=== PATIENT | male | born 1945 | race Caucasian/White ===

== ENCOUNTER → 2021-06-10 08:39 | Outpatient (BNVA) | payer OTHER, SELFPAY | PROVIDERS: PCP Internal Medicine; Visit Provider Surgery | DX: Z12.11 Encounter for screening for malignant neoplasm of colon (principal) | CPT/HCPCS: 99202 ==

== ENCOUNTER 2022-03-23 00:40 | Inpatient (IN) | payer OTHER, SELFPAY ==
[2022-03-23] VITALS (36 sets, daily range): BP systolic 83–179; BP diastolic 32–80; PULSE 56–92; RESP 18–87; TEMP 35.9–36.6; O2SAT 91–100; BMI 33.6
--- NOTE | 2022-03-23 | ECG_ITS ---
Test Reason : chest pain Blood Pressure : / mmHG Vent. Rate : 060 BPM Atrial Rate : 060 BPM P-R Int : 342 ms QRS Dur : 120 ms QT Int : 450 ms P-R-T Axes : 028 -27 049 degrees QTc Int : 450 ms Sinus rhythm with 1st degree A-V block Incomplete left bundle branch block Borderline ECG When compared with ECG of 23-MAR-2022 00:54, Incomplete left bundle branch block is now Present Referred By: Lay Hall Electronically Signed By:HUYEN ALMONTE
--- NOTE | ~2022-03-23 | XR_ITS ---
EXAMINATION: XR chest 1V, XR KUB CLINICAL INFORMATION: Reason for Exam verify placement of TLC COMPARISON: Previous day TECHNIQUE: Portable AP view of the chest and supine views of the abdomen FINDINGS: Right internal jugular central venous catheter terminates at the superior cavoatrial junction. No pneumothorax. Bilateral patchy airspace opacities unchanged from prior. Small bilateral pleural effusions with accompanying atelectasis. Stable cardiomediastinal silhouette. Diffuse gaseous distention of the gastrointestinal tract including the rectum compatible with ileus. No pneumatosis or portal venous gas. XR/XR KUB IMPRESSION: * Right IJ central venous catheter terminates at the superior cavoatrial junction. * Similar-appearing bilateral patchy airspace opacities and small bilateral pleural effusions. * Generalized ileus.
--- NOTE | ~2022-03-23 | US_ITS ---
EXAMINATION: US ABDOMEN COMPLETE, PORTABLE CLINICAL INFORMATION: Rule out hepatocellular carcinoma. Cirrhosis.. COMPARISON: CT abdomen and pelvis 01/18/2017 TECHNIQUE: Real-time imaging of the abdominal viscera. FINDINGS: PANCREAS: The entire pancreas is obscured by overlying gas. ABDOMINAL AORTA: The entire abdominal aorta is not visualized. INFERIOR VENA CAVA: IVC is not visualized. On Doppler exam the IVC is patent. LIVER: The liver is heterogeneous with lobulated contour. There is a hyperechoic lesion in the right hepatic lobe measuring 7. 3.9 x 7.4 cm and a slightly smaller hypoechoic lesion in the right hepatic lobe measuring 5.9 x 6.0 x 7.1 cm. No additional lesions seen. There is no intrahepatic ductal dilatation. GALLBLADDER: There is impacted stones within the gallbladder with wall thickness of 0.7 cm. No pericholecystic fluid collection seen COMMON BILE DUCT: Normal in caliber measuring 0.4 cm in diameter. RIGHT KIDNEY: Normal. No hydronephrosis. No renal calculi or focal parenchymal lesions. The kidney measures 11.0 cm in maximum dimension. LEFT KIDNEY: Normal. No hydronephrosis. No renal calculi or focal parenchymal lesions. The kidney measures 11.0 cm in maximum dimension. SPLEEN: There is small splenule versus lesion measuring 2.4 x 2.2 x 2.2 cm. The spleen measures 11.317 cm in maximum dimension. FREE FLUID: None. US/US duplex arterial venous comp IMPRESSION: Limited portable exam due to a lot of gas. Gallstones with mild wall thickening. Cirrhosis with 2 lesions hypoechoic and hyperechoic in the right hepatic lobe, suspicious for malignancy. Cholelithiasis without wall thickening Splenule in the hilum measuring 2.4 x 2.2 x 2.2 cm There is an impacted stones in the gallbladder with wall thickness is 0.7 cm. No tenderness in right upper quadrant by ultrasound probe.
--- NOTE | ~2022-03-23 | XR_ITS ---
EXAMINATION: XR CHEST CLINICAL INFORMATION: Shortness of breath COMPARISON: 03/23/2022 TECHNIQUE: Frontal view of the chest was obtained. FINDINGS: Lung volumes are symmetric. There are significantly increased multifocal airspace opacity throughout both lungs. Small left pleural effusion. No pneumothorax. The cardiomediastinal contour is unremarkable. No acute osseous findings are seen. Sternal wires are present. XR/XR chest 1V IMPRESSION: Significantly worsened bilateral airspace opacities suspicious for edema versus multifocal pneumonia in the proper clinical setting. Small left pleural effusion.
--- NOTE | ~2022-03-23 | XR_ITS ---
EXAMINATION: XR chest 1V, XR KUB CLINICAL INFORMATION: Reason for Exam verify placement of TLC COMPARISON: Previous day TECHNIQUE: Portable AP view of the chest and supine views of the abdomen FINDINGS: Right internal jugular central venous catheter terminates at the superior cavoatrial junction. No pneumothorax. Bilateral patchy airspace opacities unchanged from prior. Small bilateral pleural effusions with accompanying atelectasis. Stable cardiomediastinal silhouette. Diffuse gaseous distention of the gastrointestinal tract including the rectum compatible with ileus. No pneumatosis or portal venous gas. XR/XR chest 1V IMPRESSION: * Right IJ central venous catheter terminates at the superior cavoatrial junction. * Similar-appearing bilateral patchy airspace opacities and small bilateral pleural effusions. * Generalized ileus.
--- NOTE | ~2022-03-23 | CT_ITS ---
EXAMINATION: LIVER CT 3 PHASE CLINICAL INFORMATION: Cirrhosis. Rule out liver lesion. COMPARISON: Previous abdominal ultrasound 03/23/[address] of the abdomen and pelvis December 2016 TECHNIQUE: Axial images through the abdomen with and without IV contrast. Arterial and portal phase imaging was performed. Patient received 85 mL Omnipaque 350 intravenous contrast. Sagittal and coronal reconstructions on the technologist workstation were performed. Patient dose 146 0 mg/cm. This CT examination was performed using dose optimization techniques as appropriate, variously including the following: *Automated exposure control *Adjustment of mA and/or kV according to patient size (this includes techniques or standardized protocols for targeted exams where dose is matched to indication/reason for exam; i.e. extremities or head) *Use of iterative reconstruction technique FINDINGS: There is bilateral pleural calcification. There is focal right lower lobe bronchiectasis and adjacent pleural thickening. These findings are similar to 2017 exam. There is a new small left pleural effusion. There is a new abnormal peripheral density in the left lower lobe with air bronchograms. Differential would include pneumonia, mass and round atelectasis related to the left pleural disease. The heart is enlarged. The liver is cirrhotic. There is a heterogeneous 6.7 x 6.3 cm lesion in the central liver involving the anterior segment of the right lobe and possibly some of the medial segment of the left lobe of the liver. This is slightly low-attenuation in attenuation precontrast. This demonstrates mild early arterial phase enhancement and washout. This has low attenuation cystic or necrotic areas and is associated with local intrahepatic biliary duct dilatation in the anterior segment of the right lobe of the liver. No other focal liver lesion is seen. There are gallstones in the gallbladder. Extrahepatic bile ducts do not appear dilated. The spleen is normal. The pancreas is normal. The adrenal glands are normal. There is a small low-attenuation lesions in both kidneys probably representing small cysts. There is a small amount of ascites. There is thrombus seen in the main and right portal veins. There are mesenteric varices. The hepatic veins are patent. There is evidence of severe atherosclerotic disease. There is calcification at the origin of the celiac axis and SMA. There is scoliosis and degenerative change of the spine. CT/CT liver 3 phase IMPRESSION: Cirrhotic-appearing liver. 6.7 x 6.3 cm mass in the anterior segment of the right lobe of the liver and possibly involving some of the medial segment of the left lobe of the liver. Thrombus in the main and right portal veins. Small amount of ascites. Gallstones. Small renal cysts. Severe atherosclerotic disease. Bilateral pleural calcification probably representing changes from asbestos exposure. Focal right lower lobe bronchiectasis and adjacent pleural thickening stable from 2017 exam. New small left pleural effusion and peripheral masslike consolidation in the adjacent left lower lobe. Differential would include pneumonia, atelectasis related to effusion and neoplasm.
--- NOTE | ~2022-03-23 | CT_ITS ---
EXAMINATION: CT HEAD WITHOUT CONTRAST CLINICAL INFORMATION: Fiorellad speech COMPARISON: 10/08/2016 TECHNIQUE: Contiguous axial imaging was performed from the skull base to vertex without intravenous administration of contrast. This CT examination was performed using dose optimization techniques as appropriate, variously including the following: *Automated exposure control *Adjustment of mA and/or kV according to patient size (this includes techniques or standardized protocols for targeted exams where dose is matched to indication/reason for exam; i.e. extremities or head) *Use of iterative reconstruction technique DLP: 922 mGy-cm FINDINGS: There is no evidence of acute intracranial hemorrhage or territorial infarction. No abnormal mass-effect or midline shift is seen. Yadav to white matter differentiation is well preserved. No extra-axial fluid collections are identified. The ventricles are normal in size. There is mild periventricular white matter hypoattenuation consistent with chronic small vessel ischemic disease. Mild volume loss is noted. The osseous structures and soft tissues are normal. Slight opacification of the left ethmoid air cells. The mastoid air cells are well-aerated. CT/CT head/brain wo con IMPRESSION: No acute intracranial pathology.
--- NOTE | ~2022-03-23 | XR_ITS ---
EXAMINATION: XR CHEST CLINICAL INFORMATION: Status-post central line placement. COMPARISON: CT chest dated 11/08/2018; chest radiograph dated 01/18/2017. TECHNIQUE: Frontal view of the chest was obtained. FINDINGS: The heart, great vessels, pulmonary vasculature and mediastinum are stable. 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 A left internal jugular central line is seen, with tip positioned in the superior vena cava just above the cavoatrial junction. No congestive heart failure is seen. Lung volumes are somewhat diminished, with crowding of bronchovascular and pulmonary parenchymal markings. A small left pleural effusion is suspected. There is no acute osseous abnormality. There are degenerative changes of the shoulders. XR/XR chest 1V IMPRESSION: 1. A left internal jugular central venous catheter seen with tip positioned in the superior vena cava. 2. Lung volumes are low, crowding of bronchovascular and pulmonary parenchymal markings. There is mild elevation of the right hemidiaphragm. 3. A small left pleural effusion is suspected.
--- NOTE | ~2022-03-23 | US_ITS ---
EXAMINATION: US ABDOMEN LIMITED CLINICAL INFORMATION: Portal vein thrombosis evaluation. COMPARISON: Ultrasound abdomen limited 03/20/[address] of the abdomen 03/25/2022. TECHNIQUE: Real-time imaging of the right upper quadrant abdominal viscera. FINDINGS: This study is very limited since it is done portably in the ICU. The right and left portal veins were not seen. There is a central structure which could be the MPV but not clearly seen as well. Overall, I would say this study is nondiagnostic, and this CT examination from 12/23/2021 was certainly more diagnostic. There is an ill-defined hypoechoic structure in the right lobe liver at 57 x 63 mm which was seen and mentioned on the recent CT. US/US abdomen limited IMPRESSION: Very limited exam. The portal veins were not clearly evaluated.
--- NOTE | ~2022-03-23 | US_ITS ---
EXAMINATION: US ABDOMEN LIMITED CLINICAL INFORMATION: Ascites check. COMPARISON: Liver CT March 25, 2022 and abdominal ultrasound March 23, 2022 TECHNIQUE: Real-time imaging of the abdomen assessing for ascites US/US abdomen limited FINDINGS/IMPRESSION: Only a tiny amount of ascites is noted within the right upper quadrant and left lower quadrant.
--- NOTE | ~2022-03-23 | US_ITS ---
EXAMINATION: US ABDOMEN COMPLETE, PORTABLE CLINICAL INFORMATION: Rule out hepatocellular carcinoma. Cirrhosis.. COMPARISON: CT abdomen and pelvis 01/18/2017 TECHNIQUE: Real-time imaging of the abdominal viscera. FINDINGS: PANCREAS: The entire pancreas is obscured by overlying gas. ABDOMINAL AORTA: The entire abdominal aorta is not visualized. INFERIOR VENA CAVA: IVC is not visualized. On Doppler exam the IVC is patent. LIVER: The liver is heterogeneous with lobulated contour. There is a hyperechoic lesion in the right hepatic lobe measuring 7. 3.9 x 7.4 cm and a slightly smaller hypoechoic lesion in the right hepatic lobe measuring 5.9 x 6.0 x 7.1 cm. No additional lesions seen. There is no intrahepatic ductal dilatation. GALLBLADDER: There is impacted stones within the gallbladder with wall thickness of 0.7 cm. No pericholecystic fluid collection seen COMMON BILE DUCT: Normal in caliber measuring 0.4 cm in diameter. RIGHT KIDNEY: Normal. No hydronephrosis. No renal calculi or focal parenchymal lesions. The kidney measures 11.0 cm in maximum dimension. LEFT KIDNEY: Normal. No hydronephrosis. No renal calculi or focal parenchymal lesions. The kidney measures 11.0 cm in maximum dimension. SPLEEN: There is small splenule versus lesion measuring 2.4 x 2.2 x 2.2 cm. The spleen measures 11.317 cm in maximum dimension. FREE FLUID: None. US/US abdomen complete IMPRESSION: Limited portable exam due to a lot of gas. Gallstones with mild wall thickening. Cirrhosis with 2 lesions hypoechoic and hyperechoic in the right hepatic lobe, suspicious for malignancy. Cholelithiasis without wall thickening Splenule in the hilum measuring 2.4 x 2.2 x 2.2 cm There is an impacted stones in the gallbladder with wall thickness is 0.7 cm. No tenderness in right upper quadrant by ultrasound probe.
--- NOTE | ~2022-03-23 | XR_ITS ---
EXAMINATION: XR CHEST CLINICAL INFORMATION: Shortness of breath COMPARISON: 03/27/2022 TECHNIQUE: Frontal view of the chest was obtained. FINDINGS: Again seen are hypoinflated lungs and multifocal airspace disease diffusely. A small left effusion as well as a tiny right effusion is present. Compared to the prior study, there is probably no significant interval change. Again noted is median sternotomy, mild cardiomegaly and mild degenerative changes both shoulders. XR/XR chest 1V IMPRESSION: Bilateral airspace disease without significant change. Findings remain consistent with either edema or multifocal infection.
--- NOTE | 2022-03-23 00:43 | ED_ITS ---
HPI - GI Bleed General Chief complaint: Abdominal Pain Stated complaint: blood in stool Time Seen by Provider: 03/23/22 00:43 Source: patient and EMS Mode of arrival: EMS Limitations: no limitations History of Present Illness HPI Narrative: 2 days of rectal bleeding. patient has a history of cirrhosis, has a history of esophageal varices. patient with dark brown stools. Patient just had diarrhea that was black. complaint: other (black stool) Onset (ago): day(s) Pain Consistency: intermittent Severity: moderate Relieving factors: none Exacerbating factors: none Context: history of GI bleed and liver disease Associated symptoms: denies other symptoms Related Data Home Medications Medication Instructions Recorded Confirmed amlodipine 5 mg tablet 5 mg PO DAILY 06/10/21 03/23/22 lisinopril 40 mg tablet 40 mg PO DAILY 06/10/21 03/23/22 Allergies Allergy/AdvReac Type Severity Reaction Status Date / Time No Known Allergies Allergy Verified 03/23/22 00:51 [No Known Allergies*] Review of Systems Constitutional: Constitutional: Reports no additional constitutional complaints Eyes: Eyes: Reports no additional eye complaints ENT: Denies dizziness Cardiovascular: Cardiovascular: Reports no additional cardiovascular complaints Respiratory: Respiratory: Reports as per HPI Gastrointestinal: Gastrointestinal: Reports no additional gastrointestinal complaints Musculoskeletal: Musculoskeletal: Reports no additional musculoskeletal complaints Integumentary/Breasts: Skin/Breast: Denies rash Neurologic: Reports system reviewed and no additional complaints, except as documented, Denies dizziness and Denies Sensory deficit (Neuro) Psychiatric: Psychiatric: Denies anxiety PMFSH Past Medical History Medical History Chronic back pain Chronic liver disease Cirrhosis Colon cancer screening Fibromyalgia History of alcohol abuse Social History Social History Advance Directives: Yes Advance Directives Information Provided: No Advance Directives on File: No Physical Exam Vital Signs: Vital Signs: Last Vital Signs Pulse 83 03/23/22 00:49 Resp 24 H 03/23/22 00:49 BP 112/48 L 03/23/22 00:49 Pulse Ox 97 03/23/22 00:49 O2 Del Method 03/23/22 00:49 BMI result Body Mass Index 33.6 Const: Other: unkept, chronically ill Nutritional Appearance: obese Orientation/consciousness: oriented to person and patient oriented x3 Limitations: no limitations HEENT: Head: Yes normal to inspection Ears: external ears normal General nose exam: Normal external nose present Mouth: Normal oral and palatal mucosa present and oropharynx normal Throat: Yes posterior oropharynx normal Eyes: General: appearance normal, both eyes and all related structures Neck: Other: supple Neck: Yes normal visual inspection Chest: Chest palpation & inspection: normal inspection of the chest Resp: Auscultation: clear to auscultation bilaterally Cardio: Other: 3/6 CHARAN Jugular venous distension: no JVD GI: Other: obese Palpation (GI): Soft to palpation, nontender and No hepatosplenomegaly pr esent Auscultation: normal bowel sounds : Other: rectal, black stool, strong heme positive Skin: General skin exam: no rashes or lesions noted Neuro: General: oriented to person and patient oriented x3 Cranial nerves: Yes CN's II-XII intact bilaterally Motor exam (neuro): 5/5 motor strength present throughout Sensory Exam: No Sensory deficit (Neuro) Extrem: General: Yes normal to inspection Psych: Appearance: grossly normal Course Reevaluation(s) Reevaluation #1: patient with likely upper GI bleed based on black stool and the history of the same. At the point with HCT 28.5 and stable vitals I will not transfuse at this time Time: 03:09 [facility] - GI Bleed Lab Data Result diagrams: 03/23/22 01:26 03/23/22 01:26 Labs: Lab Results 03/23/22 03/23/22 03/23/22 Range/Units 01:26 01:26 01:26 WBC 9.6 (4.8-10.8) X10*3/uL RBC 2.62 L (4.60-5.80) X10*6/uL Hgb 9.8 L (14.0-18.0) g/dl Hct 28.5 L (42.0-52.0) % MCV 108.8 H (80.0-98.0) fL MCH 37.4 H (27.0-33.0) pg MCHC 34.4 (31.0-36.0) g/dl RDW 13.6 (11.0-16.0) % Plt Count 123 L (160-400) X10*3/uL MPV 10.2 (9.4-12.4) fL Immature Gran % (Auto) 0.4 (0.0-0.4) % Neut % (Auto) 62.2 (45-73) % Lymph % (Auto) 16.6 L (20-40) % [place] % (Auto) 17.9 H (2-11) % Eos % (Auto) 2.1 (0-4) % Baso % (Auto) 0.8 (0-2) % Lymph # (Auto) 1.6 (1.2-4.9) X10*3/uL [place] # (Auto) 1.7 H (0.1-1.2) X10*3/uL Eos # (Auto) 0.2 (0.0-0.4) X10*3/uL Baso # (Auto) 0.1 (0.0-0.2) X10*3/uL Abs Immat Gran (auto) 0.04 H (0.00-0.03) X10*3/uL Absolute Neuts (auto) 6.0 (2.0-8.3) x10*3/uL Absolute Nucleated RBC 0.000 (0.0-0.012) X10*3/uL Nucleated RBC % (auto) 0.0 (0.0-0.2) /100WBC Smear Tech's Comments VERIFIED PT (10.0-13.1) SEC INR (0.9-1.1) Sodium 134 L (135-145) mmol/L Potassium 4.9 (3.3-5.1) mmol/L Chloride 100 (96-108) mmol/L Carbon Dioxide 20 L (22-29) mmol/L Anion Gap 19 (12-20) BUN 27 H (9-16) mg/dL Creatinine 0.85 (0.5-1.4) mg/dL Estim Creat Clear Calc 94.2 Estimated GFR > 60 Random Glucose 115 (60-115) mg/dL Calcium 9.9 (8.4-10.2) mg/dL Total Bilirubin 1.5 H (0.0-1.0) mg/dL Direct Bilirubin 0.7 H (0.0-0.5) mg/dL AST 84 H (5-37) U/L ALT 31 (0-40) U/L Alkaline Phosphatase 104 (39-117) U/L Troponin I High Sens 15.7 (<3.5-35.0) ng/L Total Protein 7.1 (6.5-8.0) g/dL Albumin 3.1 L (3.5-5.0) g/dL Ethyl Alcohol < 10 mg/dL COVID-19 ([facility]) (Negative) COVID-19 Clin Com 03/23/22 03/23/22 Range/Units 01:43 02:23 WBC (4.8-10.8) X10*3/uL RBC (4.60-5.80) X10*6/uL Hgb (14.0-18.0) g/dl Hct (42.0-52.0) % MCV (80.0-98.0) fL MCH (27.0-33.0) pg MCHC (31.0-36.0) g/dl RDW (11.0-16.0) % Plt Count (160-400) X10*3/uL MPV (9.4-12.4) fL Immature Gran % (Auto) (0.0-0.4) % Neut % (Auto) (45-73) % Lymph % (Auto) (20-40) % [place] % (Auto) (2-11) % Eos % (Auto) (0-4) % Baso % (Auto) (0-2) % Lymph # (Auto) (1.2-4.9) X10*3/uL [place] # (Auto) (0.1-1.2) X10*3/uL Eos # (Auto) (0.0-0.4) X10*3/uL Baso # (Auto) (0.0-0.2) X10*3/uL Abs Immat Gran (auto) (0.00-0.03) X10*3/uL Absolute Neuts (auto) (2.0-8.3) x10*3/uL Absolute Nucleated RBC (0.0-0.012) X10*3/uL Nucleated RBC % (auto) (0.0-0.2) /100WBC Smear Tech's Comments PT 23.9 H (10.0-13.1) SEC INR 2.0 H (0.9-1.1) Sodium (135-145) mmol/L Potassium (3.3-5.1) mmol/L Chloride (96-108) mmol/L Carbon Dioxide (22-29) mmol/L Anion Gap (12-20) BUN (9-16) mg/dL Creatinine (0.5-1.4) mg/dL Estim Creat Clear Calc Estimated GFR Random Glucose (60-115) mg/dL Calcium (8.4-10.2) mg/dL Total Bilirubin (0.0-1.0) mg/dL Direct Bilirubin (0.0-0.5) mg/dL AST (5-37) U/L ALT (0-40) U/L Alkaline Phosphatase (39-117) U/L Troponin I High Sens (<3.5-35.0) ng/L Total Protein (6.5-8.0) g/dL Albumin (3.5-5.0) g/dL Ethyl Alcohol mg/dL COVID-19 ([facility]) Negative (Negative) COVID-19 Clin Com See Note ECG Data Attestation: I personally reviewed and interpreted this ECG as follows: Interpretation: normal sinus rhythm rate of 80, no st or twave changes Discharge Plan Discharge Clinical Impression: Acute upper gastrointestinal bleeding, Cirrhosis Patient Disposition: Admitted As Inpatient
--- NOTE | 2022-03-23 00:47 | ECG_ITS ---
Test Reason : WEAKNESS Blood Pressure : / mmHG Vent. Rate : 082 BPM Atrial Rate : 082 BPM P-R Int : 252 ms QRS Dur : 102 ms QT Int : 396 ms P-R-T Axes : 036 -28 014 degrees QTc Int : 462 ms Sinus rhythm with 1st degree A-V block Otherwise normal ECG When compared with ECG of 18-JAN-2017 07:57, No significant change was found Referred By: Jean Amezcua Electronically Signed By:HUYEN ALMONTE
[2022-03-23 01:32] LABS: Basophils Absolute Auto 0.1 X10*3/uL (0.0-0.2); Basophils Percent Auto 0.8 % (0-2); Eosinophils Absolute Auto 0.2 X10*3/uL (0.0-0.4); Eosinophils Percent Auto 2.1 % (0-4); Hematocrit 28.5 % (42.0-52.0); Hemoglobin 9.8 g/dl (14.0-18.0); Imm Gran Abs Auto 0.04 X10*3/uL (0.00-0.03); Imm Gran Pct Auto 0.4 % (0.0-0.4); Lymphocytes Absolute Auto 1.6 X10*3/uL (1.2-4.9); Lymphocytes Percent Auto 16.6 % (20-40); MANUAL DIFF FLAG SCAN; Mean Corpuscular HGB Conc 34.4 g/dl (31.0-36.0); Mean Corpuscular Hemoglobin 37.4 pg (27.0-33.0); Mean Corpuscular Volume 108.8 fL (80.0-98.0); Mean Platelet Volume 10.2 fL (9.4-12.4); Monocytes Absolute Auto 1.7 X10*3/uL (0.1-1.2); Monocytes Percent Auto 17.9 % (2-11); Neutrophils Percent Auto 62.2 % (45-73); Platelet Count 123 X10*3/uL (160-400); Red Blood Count 2.62 X10*6/uL (4.60-5.80); Red Cell Distribution Width 13.6 % (11.0-16.0); SCAN SMEAR FLAG 1; White Blood Count 9.6 X10*3/uL (4.8-10.8)
[2022-03-23 01:49] LABS: SLIDE REVIEW VERIFIED
[2022-03-23 01:51] LABS: Troponin-I High Sensitivity 15.7 ng/L (<3.5-35.0)
[2022-03-23 01:52] LABS: Alanine Aminotransferase 31 U/L (0-40); Albumin Level 3.1 g/dL (3.5-5.0); Alkaline Phosphatase 104 U/L (39-117); Anion Gap 19 (12-20); Aspartate Amino Transferase 84 U/L (5-37); Bilirubin Direct 0.7 mg/dL (0.0-0.5); Bilirubin Total 1.5 mg/dL (0.0-1.0); Blood Urea Nitrogen 27 mg/dL (9-16); Calcium 9.9 mg/dL (8.4-10.2); Carbon Dioxide 20 mmol/L (22-29); Chloride 100 mmol/L (96-108); Creatinine Clr Calc Pharmacy 94.2; Estimated Glomerular Filt Rate > 60; Ethanol < 10 mg/dL; Glucose Random 115 mg/dL (60-115); Potassium 4.9 mmol/L (3.3-5.1); Sodium 134 mmol/L (135-145); Total Protein 7.1 g/dL (6.5-8.0)
[2022-03-23 02:05] LABS: COVID-19 Test Negative (Negative)
[2022-03-23 02:38] LABS: Prothrombin Time 23.9 SEC (10.0-13.1)
[2022-03-23] MEDS: Acetaminophen 325 MG TABLET 650 MG PO (03:36)
[2022-03-23] MEDS: ondansetron HCL 4 MG/2 ML VIAL IVPUSH ×4 (03:54→19:50)
[2022-03-23] MEDS: cefTRIAXone sodium 1 GM in 0.9 % Sodium Chloride 50 ML IV (06:14)
[2022-03-23] MEDS: Pantoprazole Sodium 80 MG in 0.9 % Sodium Chloride 80 ML 10 MG IV ×2 (06:21→16:03)
[2022-03-23 06:34] LABS: Basophils Absolute Auto 0.1 X10*3/uL (0.0-0.2); Basophils Percent Auto 0.5 % (0-2); Eosinophils Percent Auto 0.1 % (0-4); Hematocrit 23.9 % (42.0-52.0); Hemoglobin 8.2 g/dl (14.0-18.0); Imm Gran Abs Auto 0.04 X10*3/uL (0.00-0.03); Imm Gran Pct Auto 0.4 % (0.0-0.4); Lymphocytes Absolute Auto 1.6 X10*3/uL (1.2-4.9); Lymphocytes Percent Auto 14.6 % (20-40); MANUAL DIFF FLAG SCAN; Mean Corpuscular HGB Conc 34.3 g/dl (31.0-36.0); Mean Corpuscular Hemoglobin 37.6 pg (27.0-33.0); Mean Corpuscular Volume 109.6 fL (80.0-98.0); Mean Platelet Volume 11.2 fL (9.4-12.4); Monocytes Absolute Auto 1.8 X10*3/uL (0.1-1.2); Monocytes Percent Auto 16.6 % (2-11); Neutrophils Absolute Auto 7.5 x10*3/uL (2.0-8.3); Neutrophils Percent Auto 67.8 % (45-73); Platelet Count 127 X10*3/uL (160-400); Red Blood Count 2.18 X10*6/uL (4.60-5.80); Red Cell Distribution Width 13.8 % (11.0-16.0); SCAN SMEAR FLAG 1; White Blood Count 11.1 X10*3/uL (4.8-10.8)
--- NOTE | 2022-03-23 06:45 | PM.GICN ---
History of Present Illness Data of Consult Service Date: 03/23/22 Requesting physician: Jean Amezcua Primary Care Provider: None Physician HPI Reason for consult: acute blood loss anemia 76 yr old m w hx of alcohol abuse and cirrhosis with chronic back pain, hypertension who I am seeing for assessment for acute blood loss anemia. Patient had noted black, smelly stools for last few days and now today he had coffee colored emesis. He has been feeling light headed and had b/l flank pain 5/10 in severity not worsened or relieved by anything. He denies urine symptoms, no fresh rectal bleeding, no fevers or chills. Denies nsaid history, nd no recent pepto bismuth. does admit to drinking beer on regular basis with last drink few days ago. Last EGD 2017 with Frank with non bleeding varices. LABS: WBC count of 9.6, hemoglobin of 9.8 with no recent values for comparison, MCV of 108.8 INR of 2.0, sodium of 134, BUN of 27 total bili of 1.5, direct bili of 0.7 and AST of 84.? Review of Systems Constitutional: Constitutional: Reports no additional constitutional complaints Eyes: Eyes: Reports no additional eye complaints ENT: Denies dizziness Cardiovascular: Cardiovascular: Reports no additional cardiovascular complaints Respiratory: Respiratory: Reports as per HPI Gastrointestinal: Gastrointestinal: Reports no additional gastrointestinal complaints Genitourinary: Genitourinary: Reports no additional male genitourinary complaints Musculoskeletal: Musculoskeletal: Reports no additional musculoskeletal complaints Integumentary/Breasts: Skin/Breast: Denies rash Neurologic: Reports system reviewed and no additional complaints, except as documented, Denies dizziness and Denies Sensory deficit (Neuro) Psychiatric: Psychiatric: Denies anxiety Endocrine: Endocrine: Reports no additional endocrine complaints Hematologic/Lymphatic: Hematologic/Lymphatic: Reports no additional hematologic/lymphatic complaints Allergic/Immunologic: Allergic/Immunologic: Reports no additional allergic/immunologic complaints [facility] Past Medical History Medical History Chronic back pain Chronic liver disease Cirrhosis Colon cancer screening Fibromyalgia History of alcohol abuse Social History Social History Advance Directives: Yes Advance Directives on File: Yes Advance Directives Date on File: 03/23/22 Meds Allergies Allergy/AdvReac Type Severity Reaction Status Date / Time No Known Allergies Allergy Verified 03/23/22 00:51 [No Known Allergies*] Active Medications: Current Medications Acetaminophen (Acetaminophen 325 Mg Tablet) 650 mg PO Q12H PRN PRN Reason: Pain, Mild (Pain Scale 1-3) Octreotide Acetate 500 mcg/ (Sodium Chloride) 501 mls @ 50.1 mls/hr IVCONT .Q10H [facility] Ceftriaxone Sodium 1 gm/ (Sodium Chloride) 50 mls @ 100 mls/hr IV Q24H [facility] Last Admin: 03/23/22 06:14 Dose: 100 mls/hr Lactated Ringer's (Lr) 1,000 mls @ 100 mls/hr IVCONT .Q10H [facility] Pantoprazole Sodium 80 mg/ (Sodium Chloride) 100 mls @ 10 mls/hr IV .Q10H [facility] Last Admin: 03/23/22 06:21 Dose: 8 mg/hr, 10 mls/hr Ondansetron HCl (Ondansetron Hcl 4 Mg/2 Ml Vial) 4 mg IVPUSH Q8H PRN PRN Reason: Nausea and Vomiting Pharmacy Consult (Consult Rx Perform Med Rec) 1 each MISCELLANE ONCE PRN PRN Reason: Consult order Sodium Chloride (0.9 % Sodium Chloride Flush 3 Ml Syringe) 3 ml IVFLUSH QSHIFT [facility] Home Medications Medication Instructions Recorded Confirmed Last Taken Type amlodipine 5 mg tablet 5 mg PO DAILY 06/10/21 03/23/22 03/22/22 History lisinopril 40 mg tablet 40 mg PO DAILY 06/10/21 03/23/22 03/22/22 History Physical Exam Vital Signs: Vital Signs: Last Vital Signs Temp 97.8 F 03/23/22 06:29 Pulse 75 03/23/22 06:29 Resp 22 H 03/23/22 06:29 BP 91/41 L 03/23/22 06:29 Pulse Ox 95 03/23/22 06:29 O2 Del Method 03/23/22 06:29 BMI result Body Mass Index 33.6 Const: Other: unkept, chronically ill Nutritional Appearance: obese Orientation/consciousness: oriented to person and patient oriented x3 Limitations: no limitations HEENT: Head: Yes normal to inspection Ears: external ears normal General nose exam: Normal external nose present Mouth: Normal oral and palatal mucosa present and oropharynx normal Throat: Yes posterior oropharynx normal Eyes: General: appearance normal, both eyes and all related structures Neck: Other: supple Neck: Yes normal visual inspection Chest: Chest palpation & inspection: normal inspection of the chest Resp: Effort & Inspection: normal respiratory effort Auscultation: clear to auscultation bilaterally Cardio: Other: 3/6 CHARAN Jugular venous distension: no JVD Rate: regular rate Rhythm: regular rhythm Heart sounds: S1 normal heart sound present and S2 normal heart sound present GI: Other: obese Palpation (GI): Soft to palpation, nontender, No hepatosplenomegaly present and Ascites present Auscultation: normal bowel sounds Skin: General skin exam: no rashes or lesions noted Neuro: General: oriented to person and patient oriented x3 Cranial nerves: Yes CN's II-XII intact bilaterally Motor exam (neuro): 5/5 motor strength present throughout Sensory Exam: No Sensory deficit (Neuro) Extrem: General: Yes normal to inspection Psych: Appearance: grossly normal and disheveled Results Labs CBC & Chem 7: 03/23/22 06:11 03/23/22 01:26 Labs: Short CBC 03/23/22 03/23/22 Range/Units 01:26 06:11 WBC 9.6 11.1 H (4.8-10.8) X10*3/uL Hgb 9.8 L 8.2 L (14.0-18.0) g/dl Hct 28.5 L 23.9 L (42.0-52.0) % Plt Count 123 L 127 L (160-400) X10*3/uL BMP 03/23/22 01:26 Sodium 134 L Potassium 4.9 Chloride 100 Carbon Dioxide 20 L BUN 27 H Creatinine 0.85 Calcium 9.9 Liver Function 03/23/22 Range/Units 01:26 Total Bilirubin 1.5 H (0.0-1.0) mg/dL Direct Bilirubin 0.7 H (0.0-0.5) mg/dL AST 84 H (5-37) U/L ALT 31 (0-40) U/L Alkaline Phosphatase 104 (39-117) U/L Albumin 3.1 L (3.5-5.0) g/dL Assessment and Plan (1) Acute upper gastrointestinal bleeding: Status: Acute (2) Cirrhosis: Qualifiers: Ascites presence: unspecified Hepatic cirrhosis type: alcoholic cirrhosis Qualified Code(s): K70.30 - Alcoholic cirrhosis of liver without ascites Status: Acute Plan 1/ Acute blood loss anemia with hx of cirrhosis and known hx of varices with ongoing alcohol use, concern is for variceal bleeding ddx: dieulafoy, PUD, esophagitis PLAN: 1/ NPO 2/ PPI and octreotide 3/ transfuse for HGB 8-9 g/dl 4/ US liver and doppler r/o HCC and PVT 5/ EGD today for further assessment Procedures Date of Service Date of Service: 03/23/22
[2022-03-23] MEDS: Lactated Ringers 1,000 ML 100 ML IVCONT (07:38)
--- NOTE | 2022-03-23 07:47 | PC.NURSE ---
pt alert and oriented, skin slightly warm to touch, respirations even but slightly labored probably do to pain, pt reports abd pain all over 10/10 with some nausea. pt had a large tarry stool, bp soft but holding at 97/55 hr 81 at normal sinus
--- NOTE | 2022-03-23 07:58 | P.HPHOSP_ITS ---
History of Present Illness Date of Service: 03/23/22 Chief Complaint: bloody vomiting this is a 76-year-old male with past medical history of alcohol abuse, liver cirrhosis, chronic back pain, hypertension presents to the hospital with complaints of bloody vomiting. Patient reports history of esophageal varices and reports that he had few small episodes of bloody vomitus as well as dark brown stools that he noticed for about 2 days. He denies any abdominal pain, no chest pain, no shortness of breath, he reports no urinary symptoms at this time. He reports no fever or chills. On arrival to the ED patient hemodynamically stable with blood pressure of 112/48, labs are significant for WBC count of 9.6, hemoglobin of 9.8 with no previous for comparison, he MCV of 108.8 INR of 2.0, sodium of 134, BUN of 27 total bili of 1.5, direct bili of 0.7 and AST of 84. Review of Systems Review of Systems: Yes all other systems are reviewed and are negative [facility] Medical History Chronic back pain Chronic liver disease Cirrhosis Colon cancer screening Fibromyalgia History of alcohol abuse Social History Advance Directives: Yes Advance Directives Information Provided: No Advance Directives on File: No Meds Allergies Allergy/AdvReac Type Severity Reaction Status Date / Time No Known Allergies Allergy Verified 03/23/22 00:51 [No Known Allergies*] Active Medications: Current Medications Acetaminophen (Acetaminophen 325 Mg Tablet) 650 mg PO Q12H PRN PRN Reason: Pain, Mild (Pain Scale 1-3) Octreotide Acetate 500 mcg/ (Sodium Chloride) 501 mls @ 50.1 mls/hr IVCONT .Q10H [facility] Ceftriaxone Sodium 1 gm/ (Sodium Chloride) 50 mls @ 100 mls/hr IV Q24H [facility] Last Admin: 03/23/22 06:14 Dose: 100 mls/hr Lactated Ringer's (Lr) 1,000 mls @ 100 mls/hr IVCONT .Q10H [facility] Last Admin: 03/23/22 07:38 Dose: 100 mls/hr Pantoprazole Sodium 80 mg/ (Sodium Chloride) 100 mls @ 10 mls/hr IV .Q10H [facility] Last Admin: 03/23/22 06:21 Dose: 8 mg/hr, 10 mls/hr Morphine Sulfate (Morphine Sulfate 2 Mg/Ml Cartridge) 2 mg IVPUSH Q4H PRN; Protocol PRN Reason: Pain, Severe (Pain Scale 7-10) Ondansetron HCl (Ondansetron Hcl 4 Mg/2 Ml Vial) 4 mg IVPUSH Q8H PRN PRN Reason: Nausea and Vomiting Pharmacy Consult (Consult Rx Perform Med Rec) 1 each MISCELLANE ONCE PRN PRN Reason: Consult order Sodium Chloride (0.9 % Sodium Chloride Flush 3 Ml Syringe) 3 ml IVFLUSH QSHIFT [facility] Home Medications Medication Instructions Recorded Confirmed Last Taken Type amlodipine 5 mg tablet 5 mg PO DAILY 06/10/21 03/23/22 03/22/22 History lisinopril 40 mg tablet 40 mg PO DAILY 06/10/21 03/23/22 03/22/22 History Physical Exam Vital Signs and Narrative: Vital Signs: Last Vital Signs Temp 97.8 F 03/23/22 06:29 Pulse 81 03/23/22 07:40 Resp 22 H 03/23/22 07:40 BP 97/55 L 03/23/22 07:40 Pulse Ox 95 03/23/22 06:29 O2 Del Method 03/23/22 06:29 BMI result Body Mass Index 33.6 Const: Other: pt appears comfortable, General: cooperative and no acute distress Orientation/consciousness: patient oriented x3 HEENT: Other: trace of blood on his madden and shirt , Eyes: General: appearance normal, both eyes and all related structures Resp: Effort & Inspection: normal respiratory effort Auscultation: clear to auscultation bilaterally Cardio: Rate: regular rate Rhythm: regular rhythm GI: Other: no tenderness, no rebound or guarding Palpation (GI): Soft to palpation Auscultation: normal bowel sounds Skin: General skin exam: no rashes or lesions noted Neuro: General: patient oriented x3 Cognition (Neuro): normal cognition Extrem: General: Yes normal to inspection and Yes no pedal edema Results Labs CBC and Chem 7: 03/23/22 06:11 03/23/22 01:26 Labs: Laboratory Results - last 24 hr 03/23/22 03/23/22 03/23/22 01:26 01:26 01:43 MCV 108.8 H MCH 37.4 H MCHC 34.4 RDW 13.6 Plt Count 123 L MPV 10.2 Immature Gran % (Auto) 0.4 Neut % (Auto) 62.2 Lymph % (Auto) 16.6 L [place] % (Auto) 17.9 H Eos % (Auto) 2.1 Baso % (Auto) 0.8 Lymph # (Auto) 1.6 [place] # (Auto) 1.7 H Eos # (Auto) 0.2 Baso # (Auto) 0.1 Abs Immat Gran (auto) 0.04 H Absolute Neuts (auto) 6.0 Absolute Nucleated RBC 0.000 Nucleated RBC % (auto) 0.0 Smear Tech's Comments VERIFIED PT INR Anion Gap 19 Estim Creat Clear Calc 94.2 Estimated GFR > 60 Random Glucose 115 Calcium 9.9 Total Bilirubin 1.5 H Direct Bilirubin 0.7 H AST 84 H ALT 31 Alkaline Phosphatase 104 Total Protein 7.1 Albumin 3.1 L Ethyl Alcohol < 10 COVID-19 ([facility]) Negative [employer] Com See Note 03/23/22 03/23/22 02:23 06:11 MCV 109.6 H MCH 37.6 H MCHC 34.3 RDW 13.8 Plt Count 127 L MPV 11.2 Immature Gran % (Auto) 0.4 Neut % (Auto) 67.8 Lymph % (Auto) 14.6 L [place] % (Auto) 16.6 H Eos % (Auto) 0.1 Baso % (Auto) 0.5 Lymph # (Auto) 1.6 [place] # (Auto) 1.8 H Eos # (Auto) 0.0 Baso # (Auto) 0.1 Abs Immat Gran (auto) 0.04 H Absolute Neuts (auto) 7.5 Absolute Nucleated RBC 0.000 Nucleated RBC % (auto) 0.0 Smear Tech's Comments PT 23.9 H INR 2.0 H Anion Gap Estim Creat Clear Calc Estimated GFR Random Glucose Calcium Total Bilirubin Direct Bilirubin AST ALT Alkaline Phosphatase Total Protein Albumin Ethyl Alcohol COVID-19 ([facility]) COVID-[facility] Com Assessment and Plan (1) Acute upper gastrointestinal bleeding: Status: Acute (2) History of alcohol abuse: Status: Acute (3) Cirrhosis: Qualifiers: Ascites presence: unspecified Hepatic cirrhosis type: alcoholic cirrhosis Qualified Code(s): K70.30 - Alcoholic cirrhosis of liver without ascites Status: Acute (4) History of esophageal varices: Status: Acute Plan 76-year-old with past medical history of alcohol abuse, liver cirrhosis secondary to alcohol abuse and history of esophageal varices presents to the hospital with dark stools and had hematemesis while in the ED # GI bleed - likely secondary to variceal blade - will start patient on octreotide, ppi IV, will also start ceftriaxone for SBP prophylaxis - GI consulted - continues to have hematemesis consider FFP # History of alcohol abuse - continues to drink 3-5 beers every night - no evidence of withdrawal at this time - place on CIWA # Hx of cirrhosis - not on diuretics - GI consulted # HTN - hold antihypertensives at this time DVT ppx: SCDs Given GI bleed in the setting of esophageal varices, pt will require a min of 2night hospital stay for further monitoring Quality Stroke Does the patient have a stroke diagnosis?: No VTE Prior VTE?: No VTE Risk Level:: Medical - moderate - high VTE Device Contraindication: N/A - Device Ordered VTE Drug Contraindication: Treatment Not Indicated
[2022-03-23] MEDS: Octreotide Acetate 500 MCG in 0.9 % Sodium Chloride 500 ML 50.1 MCG IVCONT ×2 (08:13→20:07)
[2022-03-23] MEDS: Morphine Sulfate 2 MG/ML CARTRIDGE IVPUSH ×3 (08:21→20:19)
[2022-03-23] MEDS: 0.9 % Sodium Chloride Flush 3 ML SYRINGE IVFLUSH ×3 (08:27→23:20)
--- NOTE | 2022-03-23 09:39 | PHA.MEDREC ---
Pharmacy Consult ? Medication Reconciliation Pharmacy has completed the medication reconciliation.
--- NOTE | 2022-03-23 10:47 | PC.NURSE ---
report given to sss
[2022-03-23 12:02] LABS: Anion Gap 25 (12-20); Blood Urea Nitrogen 45 mg/dL (9-16); Calcium 9.3 mg/dL (8.4-10.2); Carbon Dioxide 11 mmol/L (22-29); Chloride 107 mmol/L (96-108); Estimated Glomerular Filt Rate 44; Glucose Random 152 mg/dL (60-115); Potassium 7.2 mmol/L (3.3-5.1); Sodium 136 mmol/L (135-145)
--- NOTE | 2022-03-23 12:08 | PC.NURSE ---
pt appears to be a little more comfortable at this time was able to rest for a few minutes, but now is reporting midsternal sharp chest pain 8/10, denies abd pain and denies lower back/coccyx area pain, bp improving current bp 123/53 hr 56, pt is pale and cool to touch and sclera is pale as well second bag of ffp's are running, pt was put on oxygen at 2l with the first bag of ffp's was sating at 92-93 now sating at 98% on 2l
[2022-03-23 13:45] LABS: Mean Corpuscular HGB Conc 33.5 g/dl (31.0-36.0); Mean Corpuscular Hemoglobin 37.6 pg (27.0-33.0); Mean Platelet Volume 10.6 fL (9.4-12.4); Platelet Count 118 X10*3/uL (160-400); Red Blood Count 1.78 X10*6/uL (4.60-5.80); White Blood Count 14.2 X10*3/uL (4.8-10.8)
[2022-03-23 13:56] LABS: Potassium 7.2 mmol/L (3.3-5.1)
[2022-03-23 13:57] LABS: Hemoglobin 6.7 g/dl (14.0-18.0); Mean Corpuscular Volume 112.4 fL (80.0-98.0)
--- NOTE | 2022-03-23 14:20 | PC.NURSE ---
camp nurse here to pick pulling machine tender the pt for sss, called [facility] pt's current lab results potassium is 7.2 and hemoglobin dropped to 6
[2022-03-23] MEDS: Dextrose 50 % 25 GM/50 ML SYRINGE IVPUSH (14:53)
[2022-03-23] MEDS: Insulin Regular, Human 100 UNIT/ML 3 ML VIAL 10 UNIT IVPUSH (14:53)
[2022-03-23] MEDS: Calcium Gluconate/NaCl,Iso-Osm 1 GM/50 ML PLAST..BAG IV (14:57)
[2022-03-23 15:02] LABS: Glucose, Whole Blood 144 mg/dL (60-115)
--- NOTE | 2022-03-23 15:05 | PC.NURSE ---
pt vomited about 50-100cc of ankit red blood, reports heaving a headache but denies chest pain at this time
--- NOTE | 2022-03-23 15:37 | PC.NURSE ---
pt is vomiting large amounts of ankit colored bloody clots, dr brito aware and tigered dr arroyo as well, bp 89/47, hr 82
--- NOTE | 2022-03-23 15:44 | MHC.CM.PN ---
EMR REVIEWED, PT ADMITTED W/HEMPOTYSIS, PT BEING TRANSFUSED AT TIME OF CM ASSESSMENT, PT REPORTS HE LIVES ALONE, USES A CANE AND DENIES ANY OTHER DME, PT DENIES HAVING HOME SERVICES AND DENIES NEED FOR SERVICES AND REPORTS HE WOULD DECLINE STR, PT VERIFIES PCP IS ALDEN VILLEGAS AT [facility] AND PT REPORTS HE USES [facility] [place], PT REPORTS HE USED TO USE THE PHARMACY AT [facility] HOWEVER THEY CLOSED, PT REPORTS HIS GDTR ANGELO JARQUIN [phone] IS HIS HCP AND COPY FOUND IN [employer] AND HAS BEEN UPLOADED TO [employer]. GLADIS PT WILL D/C HOME NO SERVICES [employer]
[2022-03-23] MEDS: Phytonadione (Vit K1) 10 MG in 0.9 % Sodium Chloride 50 ML 51 MG IV ×2 (15:45→23:18)
--- NOTE | 2022-03-23 15:53 | P.EN_ITS ---
Event Note Date of Service: 03/23/22 Event Note: Chief Complaint: bloody vomiting ?this is a 76-year-old male with past medical history of alcohol abuse, liver cirrhosis, chronic back pain, hypertension presents to the hospital with complaints of bloody vomiting.? Patient reports history of esophageal varices and reports that he had few small episodes of bloody vomitus as well as dark brown stools that he noticed for about 2 days.? He denies any abdominal pain, no chest pain, no shortness of breath, he reports no urinary symptoms at this time.? He reports no fever or chills. ? ?On arrival to the ED patient hemodynamically stable with blood pressure of 112/48, labs are significant for WBC count of 9.6, hemoglobin of 9.8 with no previous for comparison, he MCV of 108.8 INR of 2.0, sodium of 134, BUN of 27 total bili of 1.5, direct bili of 0.7 and AST of 84.? Hospital course 76-year-old gentleman with past medical history of alcohol abuse, liver cirrhosis secondary to alcohol abuse and history of esophageal varices presented to hospital with couple episodes of dark stools and had hematemesis while in the ED patient admitted to intermediate care unit with a diagnosis of GI bleed likely secondary to variceal bleed. Patient placed on IV ppi, IV octreotide and IV ceftriaxone, on admission patient noted to have stable hematocrit and renal function however patient was noted to be hypotensive therefore treated with IV fluid, subsequently patient noted to have drop in hematocrit and noted to have an elevated potassium of 7.2, repeat potassium was obtained that remained 7.2 patient also noted to have bump in his creatinine and drop in bicarb, due to elevated potassium patient was unable to undergo upper endoscopy, case discussed with Dr. Ashraf he recommended to continue above treatment and to treat potassium, patient aggressively treated for hyperkalemia with insulin and D50, calcium gluconate 10 g. as well as Lokelma, subsequently patient noted to have multiple episodes of bloody vomiting patient noted to have poor IV access, case discussed with Dr. Momin he recommended IV bicarb drip, case discussed with manager corporate communications Dr. Jean salinas due to persistent hematemesis and drop in blood pressure Dr. Caballero agree to take patient under his service. Requested ER physician Dr. Mukherjee from ED to place central line. Repeat labs ordered, including CBC, lactic acid, BMP and VBG Continue IV octreotide, continue IV Protonix, IV ceftriaxone, IV bicarb drip Gannon catheter 10 mg x 1 vitamin K given Home dose of lisinopril 40 mg and amlodipine 5 mg held on admission Diagnosis Upper GI bleed likely variceal bleed Coagulopathy Acute renal failure with hyperkalemia History of alcohol abuse Hypotension with history of hypertension
--- NOTE | 2022-03-23 15:57 | PC.NURSE ---
dr tobar at bedside looking to place a femoral central line, unable to hang bicarb drip do to iv access
[2022-03-23] MEDS: Sodium Bicarbonate 8.4% 150 MEQ in Dextrose 5 % 850 ML 200 MEQ IV (16:07)
[2022-03-23 16:34] LABS: Venous Blood Gas Refer to POC result
[2022-03-23 16:34] LABS: VBG Base Excess -2.8 mmol/L; VBG HCO3 21 mmol/L (22-26); VBG pCO2 34 mmHg; VBG pO2 56 mmHg
[2022-03-23 16:44] LABS: Prothrombin Time 23.8 SEC (10.0-13.1)
[2022-03-23 16:45] LABS: Hemoglobin 6.5 g/dl (14.0-18.0)
[2022-03-23 16:46] LABS: Hematocrit 19.1 % (42.0-52.0)
--- NOTE | 2022-03-23 16:49 | PC.NURSE ---
vasopressing is up and running at vasopresin up and running at 0.1u/min able to override the pump for 0.5u/min as dr salinas ordered
[2022-03-23 16:50] LABS: Lactic Acid 4.3 mmol/L (0.5-2.0)
[2022-03-23 16:51] LABS: Anion Gap 16 (12-20); Blood Urea Nitrogen 42 mg/dL (9-16); Carbon Dioxide 20 mmol/L (22-29); Chloride 104 mmol/L (96-108); Creatinine Clr Calc Pharmacy 70.2; Estimated Glomerular Filt Rate > 60; Glucose Random 185 mg/dL (60-115); Potassium 5.4 mmol/L (3.3-5.1); Sodium 135 mmol/L (135-145)
--- NOTE | 2022-03-23 16:53 | MHC.SHP ---
Pre-Procedural Eval Section A Date of Service: 03/23/22 The patient is an INPATIENT: Yes The History & Physical has been completed within 30 days and I have reviewed it.: Yes Section B Chief Complaint: Hemoptysis Allergies: Allergies Allergy/AdvReac Type Severity Reaction Status Date / Time No Known Allergies Allergy Verified 03/23/22 00:51 [No Known Allergies*] Plan I have reviewed the history and physical and performed a pertinent physical examination on my patient. No changes have occurred unless specified.
--- NOTE | 2022-03-23 17:02 | P.CONAN_ITS ---
Documented by User: Stefano Ervin MD 03/23/22 17:06 HPI - Anesthesia Eval Consult details Narrative: 76 M for EGD CABG 14 years ago . Hyperkalemia PMFSH Active Problems Active Problems: All Active Problems (Updated 03/23/22 @ 08:17 by Riri Harvey MD) History of esophageal varices (Acute) Acute upper gastrointestinal bleeding (Acute) Cirrhosis (Acute) Colon cancer screening (Acute) Fibromyalgia (Acute) History of alcohol abuse (Acute) Chronic liver disease (Acute) Cirrhosis (Acute) Chronic back pain (Acute) Past Medical History Medical History Chronic back pain Chronic liver disease Cirrhosis Colon cancer screening Fibromyalgia History of alcohol abuse Family History Family history of problems with anesthesia: No Social History Social History Advance Directives Date on File: 03/23/22 service: Yes Current occupational status: retired [employer] Allergies Allergy/AdvReac Type Severity Reaction Status Date / Time No Known Allergies Allergy Verified 03/23/22 00:51 [No Known Allergies*] Active Medications: Current Medications Acetaminophen (Acetaminophen 325 Mg Tablet) 650 mg PO Q12H PRN PRN Reason: Pain, Mild (Pain Scale 1-3) Octreotide Acetate 500 mcg/ (Sodium Chloride) 501 mls @ 50.1 mls/hr IVCONT .Q10H [facility]ONE[facility] Last Admin: 03/23/22 08:13 Dose: 50 mcg/hr, 50.1 mls/hr Ceftriaxone Sodium 1 gm/ (Sodium Chloride) 50 mls @ 100 mls/hr IV Q24H RONEY Last Infusion: 03/23/22 07:38 Dose: Infused Pantoprazole Sodium 80 mg/ (Sodium Chloride) 100 mls @ 10 mls/hr IV .Q10H [facility]ONEY Last Admin: 03/23/22 16:03 Dose: 8 mg/hr, 10 mls/hr Sodium Bicarbonate 150 meq/ (Dextrose) 1,000 mls @ 200 mls/hr IV .Q5H [facility]ONEY Stop: 03/23/22 20:44 Last Admin: 03/23/22 16:07 Dose: 200 mls/hr Sodium Bicarbonate 150 meq/ (Dextrose) 1,000 mls @ 100 mls/hr IV .Q10H RONEY Vasopressin 20 unit/ Sodium (Chloride) 101 mls @ 151.5 mls/hr IVCONT .Q40M [facility] Last Admin: 03/23/22 16:33 Dose: 0.5 unit/min, 151.5 mls/hr Morphine Sulfate (Morphine Sulfate 2 Mg/Ml Cartridge) 2 mg IVPUSH Q4H PRN; Protocol PRN Reason: Pain, Severe (Pain Scale 7-10) Last Admin: 03/23/22 12:55 Dose: 2 mg Ondansetron HCl (Ondansetron Hcl 4 Mg/2 Ml Vial) 4 mg IVPUSH Q8H PRN PRN Reason: Nausea and Vomiting Last Admin: 03/23/22 15:45 Dose: 4 mg Pharmacy Consult (Consult Rx Perform Med Rec) 1 each MISCELLANE ONCE PRN PRN Reason: Consult order Sodium Chloride (0.9 % Sodium Chloride Flush 3 Ml Syringe) 3 ml IVFLUSH QSHIFT [facility] Last Admin: 03/23/22 16:15 Dose: 3 ml Sodium Zirconium Cyclosilicate (Sodium Zirconium Cyclosilicate 10 Gm Powd.Pack) 10 gm PO DAILY [facility] Home Medications Medication Instructions Recorded Confirmed Last Taken Type amlodipine 5 mg tablet 5 mg PO DAILY 06/10/21 03/23/22 03/22/22 History lisinopril 40 mg tablet 40 mg PO DAILY 06/10/21 03/23/22 03/22/22 History Exam Exam Date and Time: March 23, 2022 1702 Height,Weight and Vital Signs: Height 6 ft Weight 112.491 kg Last Vital Signs Temp 97.8 F 03/23/22 15:09 Pulse 81 03/23/22 16:14 Resp 18 03/23/22 16:14 BP 106/52 L 03/23/22 16:14 Pulse Ox 96 03/23/22 16:14 O2 Del Method 03/23/22 16:14 O2 Flow Rate 2 03/23/22 16:14 Pertinent Lab Results Pertinent Lab Results: Laboratory Tests 03/23/22 03/23/22 03/23/22 01:26 01:26 01:26 WBC 9.6 RBC 2.62 L Hgb 9.8 L Hct 28.5 L MCV 108.8 H MCH 37.4 H MCHC 34.4 RDW 13.6 Plt Count 123 L MPV 10.2 Immature Gran % (Auto) 0.4 Neut % (Auto) 62.2 Lymph % (Auto) 16.6 L [place] % (Auto) 17.9 H Eos % (Auto) 2.1 Baso % (Auto) 0.8 Lymph # (Auto) 1.6 [place] # (Auto) 1.7 H Eos # (Auto) 0.2 Baso # (Auto) 0.1 Abs Immat Gran (auto) 0.04 H Absolute Neuts (auto) 6.0 Absolute Nucleated RBC 0.000 Nucleated RBC % (auto) 0.0 Smear Tech's Comments VERIFIED PT INR VBG pH VBG pCO2 VBG pO2 VBG HCO3 VBG O2 Saturation VBG Base Excess Sodium 134 L Potassium 4.9 Chloride 100 Carbon Dioxide 20 L Anion Gap 19 BUN 27 H Creatinine 0.85 Estim Creat Clear Calc 94.2 Estimated GFR > 60 POC Glucose Random Glucose 115 Lactic Acid Calcium 9.9 Total Bilirubin 1.5 H Direct Bilirubin 0.7 H AST 84 H ALT 31 Alkaline Phosphatase 104 Troponin I High Sens 15.7 Total Protein 7.1 Albumin 3.1 L Ethyl Alcohol < 10 COVID-19 ([facility]) COVID-19 Clin Com Blood Type Antibody Screen Crossmatch 03/23/22 03/23/22 03/23/22 01:43 02:23 06:11 WBC 11.1 H RBC 2.18 L Hgb 8.2 L Hct 23.9 L MCV 109.6 H MCH 37.6 H MCHC 34.3 RDW 13.8 Plt Count 127 L MPV 11.2 Immature Gran % (Auto) 0.4 Neut % (Auto) 67.8 Lymph % (Auto) 14.6 L [place] % (Auto) 16.6 H Eos % (Auto) 0.1 Baso % (Auto) 0.5 Lymph # (Auto) 1.6 [place] # (Auto) 1.8 H Eos # (Auto) 0.0 Baso # (Auto) 0.1 Abs Immat Gran (auto) 0.04 H Absolute Neuts (auto) 7.5 Absolute Nucleated RBC 0.000 Nucleated RBC % (auto) 0.0 Smear Tech's Comments PT 23.9 H INR 2.0 H VBG pH VBG pCO2 VBG pO2 VBG HCO3 VBG O2 Saturation VBG Base Excess Sodium Potassium Chloride Carbon Dioxide Anion Gap BUN Creatinine Estim Creat Clear Calc Estimated GFR POC Glucose Random Glucose Lactic Acid Calcium Total Bilirubin Direct Bilirubin AST ALT Alkaline Phosphatase Troponin I High Sens Total Protein Albumin Ethyl Alcohol COVID-19 ([facility]) Negative COVID-19 [facility] Com See Note Blood Type Antibody Screen Crossmatch 03/23/22 03/23/22 03/23/22 08:40 11:21 13:32 WBC 14.2 H RBC 1.78 L Hgb 6.7 L* Hct 20.0 L* MCV 112.4 H MCH 37.6 H MCHC 33.5 RDW 14.0 Plt Count 118 L MPV 10.6 Immature Gran % (Auto) Neut % (Auto) Lymph % (Auto) [place] % (Auto) Eos % (Auto) Baso % (Auto) Lymph # (Auto) [place] # (Auto) Eos # (Auto) Baso # (Auto) Abs Immat Gran (auto) Absolute Neuts (auto) Absolute Nucleated RBC 0.000 Nucleated RBC % (auto) 0.0 Smear Tech's Comments PT INR VBG pH VBG pCO2 VBG pO2 VBG HCO3 VBG O2 Saturation VBG Base Excess Sodium 136 Potassium 7.2 H* D Chloride 107 Carbon Dioxide 11 L Anion Gap 25 H BUN 45 H D Creatinine 1.54 H Estim Creat Clear Calc 52.0 Estimated GFR 44 POC Glucose Random Glucose 152 H Lactic Acid Calcium 9.3 D Total Bilirubin Direct Bilirubin AST ALT Alkaline Phosphatase Troponin I High Sens Total Protein Albumin Ethyl Alcohol COVID-19 ([facility]) COVID-19 Clin Com Blood Type A Positive Antibody Screen NEGATIVE Crossmatch See Detail 03/23/22 03/23/22 03/23/22 13:32 14:57 16:25 WBC RBC Hgb Hct MCV MCH MCHC RDW Plt Count MPV Immature Gran % (Auto) Neut % (Auto) Lymph % (Auto) [place] % (Auto) Eos % (Auto) Baso % (Auto) Lymph # (Auto) [place] # (Auto) Eos # (Auto) Baso # (Auto) Abs Immat Gran (auto) Absolute Neuts (auto) Absolute Nucleated RBC Nucleated RBC % (auto) Smear Tech's Comments PT INR VBG pH VBG pCO2 VBG pO2 VBG HCO3 VBG O2 Saturation VBG Base Excess Sodium 135 Potassium 7.2 H* 5.4 H D Chloride 104 Carbon Dioxide 20 L Anion Gap 16 BUN 42 H Creatinine 1.14 Estim Creat Clear Calc 70.2 Estimated GFR > 60 POC Glucose 144 H Random Glucose 185 H Lactic Acid Calcium 9.0 Total Bilirubin Direct Bilirubin AST ALT Alkaline Phosphatase Troponin I High Sens Total Protein Albumin Ethyl Alcohol COVID-19 ([facility]) COVCalmSea Blood Type Antibody Screen Crossmatch 03/23/22 03/23/22 03/23/22 16:25 16:25 16:25 WBC RBC Hgb 6.5 L* Hct 19.1 L* MCV MCH MCHC RDW Plt Count MPV Immature Gran % (Auto) Neut % (Auto) Lymph % (Auto) [place] % (Auto) Eos % (Auto) Baso % (Auto) Lymph # (Auto) [place] # (Auto) Eos # (Auto) Baso # (Auto) Abs Immat Gran (auto) Absolute Neuts (auto) Absolute Nucleated RBC Nucleated RBC % (auto) Smear Tech's Comments PT 23.8 H INR 2.0 H VBG pH VBG pCO2 VBG pO2 VBG HCO3 VBG O2 Saturation VBG Base Excess Sodium Potassium Chloride Carbon Dioxide Anion Gap BUN Creatinine Estim Creat Clear Calc Estimated GFR POC Glucose Random Glucose Lactic Acid 4.3 H* Calcium Total Bilirubin Direct Bilirubin AST ALT Alkaline Phosphatase Troponin I High Sens Total Protein Albumin Ethyl Alcohol COVID-19 ([facility]) COVIDParagon 28 Blood Type Antibody Screen Crossmatch 03/23/22 16:29 WBC RBC Hgb Hct MCV MCH MCHC RDW Plt Count MPV Immature Gran % (Auto) Neut % (Auto) Lymph % (Auto) [place] % (Auto) Eos % (Auto) Baso % (Auto) Lymph # (Auto) [place] # (Auto) Eos # (Auto) Baso # (Auto) Abs Immat Gran (auto) Absolute Neuts (auto) Absolute Nucleated RBC Nucleated RBC % (auto) Smear Tech's Comments PT INR VBG pH 7.40 VBG pCO2 34 VBG pO2 56 VBG HCO3 21 L VBG O2 Saturation 83.0 VBG Base Excess -2.8 Sodium Potassium Chloride Carbon Dioxide Anion Gap BUN Creatinine Estim Creat Clear Calc Estimated GFR POC Glucose Random Glucose Lactic Acid Calcium Total Bilirubin Direct Bilirubin AST ALT Alkaline Phosphatase Troponin I High Sens Total Protein Albumin Ethyl Alcohol COVID-19 ([facility]) COVIDParagon 28 Blood Type Antibody Screen Crossmatch Airway Loose/Missing/Broken Teeth: Yes Assessment and Plan Final Anesthetic Review Family History of Problems with Anesthesia: No Documented by User: Lino Smith MD 03/23/22 19:07 PMFSH Past Medical History Medical History Chronic back pain Chronic liver disease Cirrhosis Colon cancer screening Fibromyalgia History of alcohol abuse Surgical History History of Problems with Anesthesia: No Social History Social History Advance Directives Date on File: 03/23/22 service: Yes Current occupational status: retired Meds Allergies Allergy/AdvReac Type Severity Reaction Status Date / Time No Known Allergies Allergy Verified 03/23/22 00:51 [No Known Allergies*] Home Medications Medication Instructions Recorded Confirmed Last Taken Type amlodipine 5 mg tablet 5 mg PO DAILY 06/10/21 03/23/22 03/22/22 History lisinopril 40 mg tablet 40 mg PO DAILY 06/10/21 03/23/22 03/22/22 History Exam Airway Mallampati Class: II TM Dist: >3cm Loose/Missing/Broken Teeth: No Heart: RRR Lungs: CTA Assessment and Plan Final Anesthetic Review History of Problems with Anesthesia: No NPO: Yes ASA Class: IV and Emergency Final Preanesthetic Review: No Changes in Pt Med Stat, Meds/Allgs Chart Reviewed, Consent Obtained/Reviewed and Anes Risks/Benef Reviewed Patient Risk: High Procedure Risk: Low Anesthetic Plan Anesthetic Plan: MAC: Disposition: Inp. Admit - ICU
[2022-03-23 17:11] LABS: Insulin 43 uU/mL (2-29)
--- NOTE | 2022-03-23 17:11 | PC.NURSE ---
vasopressin is currently being ran on a basic infusion, hima from pharmacy got this approved and its at 151.5ml/h current bp 156/70. hr 80
--- NOTE | 2022-03-23 17:15 | PC.NURSE ---
pt of to sss
[2022-03-23 18:28] LABS: Reflex Lactate? Lactic Acid Added
--- NOTE | 2022-03-23 18:55 | W.PM.OPN ---
Operative Note Operative Note Date of Service: 03/23/22 Narrative: Procedure Description: EGD Indication: acute blood loss anemia Anesthesia: MAC FLEXIBLE TRANSORAL UPPER GASTROINTESTINAL ENDOSCOPY UPPER ENDOSCOPY Consent: Indications for the procedure and potential complications of bleeding, perforation, reaction to medications and missed diagnosis were discussed with the patient and informed consent was obtained. Instrument: Olympus GIF H 190 J mid size upper endoscope and 180 Therapeutic scope Monitoring: Vital signs and clinical assessment, continuous EKG monitoring, Pulse oximetry, Carbon Dioxide monitoring and blood pressure monitoring were done throughout the procedure. Procedure: The patient was placed in the left lateral decubitis position and pre-procedure medications were administered and a bite block was placed. The endoscope was inserted into the mouth and advanced under direct vision to the third part of duodenum. A careful inspection was made as the upper endoscope was withdrawn including a retroflexed examination of the proximal stomach; Findings and interventions are described below. Findings: Stomach was full of altered blood and clots in the fundus No bleeding or ulcers in duodenum or distal stomach Fresh red blood seem emanating from the lower esophagus but visability was poor. At least 2 cords of grade II varices seen and these were suspected to be the bleeding source 5 bands were deployed at the base of esophagus and the GEJ with apparent cessation of bleeding. Hemospray was then applied. Intervention: Variceal band liagation and hemospray application Impression/Findings: variceal bleeding PLAN: keep on Octreotide gtt for 48 hrs COnt with 40 mg IV pantoprazole BID NPO tonight, if stable tomorrow can advance to clears and would then add carafate 1 g BID for 2 weeks to prevent esophageal ulceration post banding ceftriaxone 1 g for 5 d if rebleeds will need transfer to [facility] for possible TIPS AVOID Nsaids
--- NOTE | 2022-03-23 19:25 | PC.NURSE ---
ARRIVED DIRECTLY FROM OR. CAR SUPERVISOR BEDSIDE TO RECOVER PATIENT. VSS, AFEBRILE. ON 8L OXYMASK. EYES OPEN, MOANING - NOT VERBALLY RESPONDING RESPONSES. MD BEDSIDE AND AWARE. PATIENT INCONTINENT OF COPIOUS AMOUNTS OF BLACK, LIQUID STOOL. ORTIZ PLACED PER MD ORDER AND INITIAL OUTPUT 1100 ML - DOCUMENTED.
[2022-03-23] MEDS: Albumin Human 25 % 100 ML IV ×2 (19:46→21:25)
[2022-03-23] MEDS: Albuterol Sulfate (0.083%) 2.5 MG/3 ML VIAL.NEB 10 MG INHALE (19:49)
[2022-03-23 20:55] LABS: Hematocrit 23.8 % (42.0-52.0); Hemoglobin 8.4 g/dl (14.0-18.0); Mean Corpuscular HGB Conc 35.3 g/dl (31.0-36.0); Mean Corpuscular Hemoglobin 36.5 pg (27.0-33.0); Mean Corpuscular Volume 103.5 fL (80.0-98.0); Mean Platelet Volume 10.8 fL (9.4-12.4); Red Cell Distribution Width 15.7 % (11.0-16.0)
[2022-03-23 20:56] LABS: Platelet Count 88 X10*3/uL (160-400)
[2022-03-23 21:08] LABS: Anion Gap 16 (12-20); Blood Urea Nitrogen 42 mg/dL (9-16); Calcium 8.7 mg/dL (8.4-10.2); Carbon Dioxide 20 mmol/L (22-29); Chloride 105 mmol/L (96-108); Estimated Glomerular Filt Rate > 60; Glucose Random 180 mg/dL (60-115); Lactic Acid 2.5 mmol/L (0.5-2.0); Potassium 4.9 mmol/L (3.3-5.1); Sodium 136 mmol/L (135-145)
--- NOTE | 2022-03-23 21:13 | PM.CCHP ---
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 ?Patient presented to the emergency room overnight with complaints of abdominal pain and black stools, his initial workup in the emergency room revealed an H&H of 9.9 and 28.5 with platelets of 123, otherwise hemodynamically stable, the patient was admitted to Medicine. ?At the time, the patient had an INR of 2.0, total bilirubin 1.5, BUN of 27 with a creatinine of 0.8.? The patient had been placed on PPI, octreotide and given ceftriaxone for SBP prophylaxis.? Given the ongoing hematemesis and the fact that the patient became hypotensive, fresh frozen plasma and packed red blood cells were administered, as his H&H also dropped to the low was point of 6.5 and 19.1. ?Patient was subsequently seen by the hair rooting machine operator Dr. Sánchez who took him to the endoscopy suite and performed a upper endoscopy noting variceal bleeding and underwent variceal band ligation and hemo spray application, then transferred to the ICU. ? Currently the patient is is not able to give a history, he is still sedated from anesthesia asking where his as well as what is the time ? ROS:? Unable to obtain patient still sedated from anesthesia ? Past Medical History:? As above ? Past Surgical History: ?As above ? Family history:? Noncontributory ? Social History: ?Patient lives at home, still drinks 5-6 beers a day, has been drinking for several years, unable to quantify but he does smoke.? Denies any drug history. ? CODE STATUS: FULL CODE ? Allergies: NKDA ? Home Medications: See Med Rec ? PHYSICAL EXAM: VS: 138/48, 78, 24, 91% on 4 L simple mask. General:? Alert oriented to person but not time or place.? Following basic commands Skin:? Intact, no lesions, edema, erythema, clubbing or cyanosis.? No ulcers. HEENT:? Head is normocephalic, atraumatic, pupils equal round reactive to light accommodation bilaterally.? Extraocular movements appear intact.? Buccal mucosa is dry, dry residual blood noted around the oral cavity, Neck is supple without lymphadenopathy. Cardiac:? Clear S1-S2, no murmurs rubs or gallops. Pulmonary:? Clear to auscultation, no wheezes, rales or rhonchi. Abdomen:? Protuberant, positive bowel sounds in all 4 quadrants.? Soft, nontender, no rebound or guarding.? Musculoskeletal:? Moving all 4 extremities upon request a major joints, there is no crepitus or tenderness.? The strength is 5/5 bilaterally and throughout all 4 extremities.? Right femoral central line catheter place. ?There is no leg edema , no calf tenderness , no leg asymmetry.? Gait not assessed at this point. Neurologic:? As above, cranial nerves 2-12 are grossly intact.? No focal deficits noted. Motor strength as above.? Vascular:? 2+ pulses upper and lower extremities distally. ? SIGNIFICANT LABORATORY DATA:? As above Repeated lab work shows white count 13.0, hemoglobin 8.4, hematocrit 23.8, platelets 88, sodium 136, potassium 4.9, chloride 105, carbon dioxide 20, BUN 42, creatinine 0.89, GFR more than 60, lactic acid 2.5 (from 4.3).? Blood alcohol level less than 10.? INR 2.0 ? REVIEW OF IMAGES: CXR IMPRESSION: ? 1. A left internal jugular central venous catheter seen with tip positioned in the superior vena cava. ? 2. Lung volumes are low, crowding of bronchovascular and pulmonary parenchymal markings. There is mild elevation of the right hemidiaphragm. ? 3. A small left pleural effusion is suspected. ? EKG REVIEW: ?Sinus rhythm with first-degree AV block, rate of 82 beats per minute.? No ST elevations, no ST depressions.? QTC 396. ?No comparison available. ? ASSESSMENT AND PLAN: 1. Acute Variceal upper GI bleed status post banding 2. Anemia of acute blood loss status post transfusion 3. Microcytic anemia likely due to alcohol consumption 4. History of alcohol abuse 5. Thrombocytopenia likely of chronic disease 6. Hypercoagulable state due to liver disease 7. Acute kidney injury due to volume depletion and hypoperfusion with BUN to creatinine ratio greater than 40 8. Acute lactic and metabolic acidosis due to acute GI bleed, no evidence of sepsis. 9. Alcohol related liver cirrhosis 10. Asymptomatic history of coronary artery disease post CABG x3 11. Stable hypertension 12. Chronic history of alcohol abuse without evidence of withdrawal 13. Acute hyperkalemia likely in the setting of acute kidney injury 14. Hypoalbuminemia 15. Hyperglycemia without history of diabetes, will rule out new onset ? PLAN OF CARE: Patient is in the ICU post flexible transoral upper gastrointestinal endoscopy with variceal band ligation and hemo spray application. ?Will perform H&H check every 3-4 hours, keep the head of the bed at 45 degree angle, NPO for next 24 hours, then Carafate as indicated by Gastroenterology.? Rocephin 1 g IV Q 24 hours for 5 days. Due to the risk of bleeding recurrence I will give him FFP x2, will also give him albumin, will continue with octreotide and PPI and will start him on vasopressin drip at 0 0.1 units/minute. Patient will continue with CIWA and will monitor for any signs of alcohol withdrawal.? If the platelets continue to drop will consider platelet transfusion.? I will give him vitamin K for a total of 50 mg.Nephrology input appreciated, the patient will receive D5 with 150 mEq use of sodium bicarb which is will also help for hydration for the patient appears to be hypovolemic.? This went all in turn help with the acute kidney injury, in the meantime will discontinue Zestril. I will give him a 10 mg albuterol inhale treatment and repeat laboratories, if the potassium continues to climb up will consider Kayexalate insulin and D50.? He did receive calcium gluconate in the ER. Will monitor closely if the patient rebleeds, he will need to be transfer to a tertiary facility for tips procedure. ? GI PROPHYLAXIS: ?On PPI and octreotide DVT PROPHYLAXIS: ?Pneumatic stockings while in bed due to acute GI bleed ? Critical care time used for critical evaluation of this patient, diagnosis, treatment and coordination of care, review her records and documentation TOTAL CRITICAL CARE TIME 120 MIN . Patient's care was discussed in detail with Dr. Hodge.? He is aware of all the above as well as the plan of care for this patient. FORMERLY [facility] Past Medical History Medical History Chronic back pain Chronic liver disease Cirrhosis Colon cancer screening Fibromyalgia History of alcohol abuse Social History Social History Household Members: None Housing: Unknown / Unable to assess Do you presently have visiting nurse or other home services: No Patient Tobacco Use Status: Current someday Tobacco user Tobacco use type: Cigarette Advance Directives Date on File: 03/23/22 service: Yes Current occupational status: retired Meds Allergies Allergy/AdvReac Type Severity Reaction Status Date / Time No Known Allergies Allergy Verified 03/23/22 00:51 [No Known Allergies*] Active Medications: Current Medications Acetaminophen (Acetaminophen 325 Mg Tablet) 650 mg PO Q12H PRN PRN Reason: Pain, Mild (Pain Scale 1-3) Amlodipine Besylate (Amlodipine Besylate 5 Mg Tablet) 5 mg PO DAILY RONEY; Protocol Octreotide Acetate 500 mcg/ (Sodium Chloride) 501 mls @ 50.1 mls/hr IVCONT .Q10H RONEY Last Admin: 03/23/22 20:07 Dose: 50 mcg/hr, 50.1 mls/hr Ceftriaxone Sodium 1 gm/ (Sodium Chloride) 50 mls @ 100 mls/hr IV Q24H RONEY Last Infusion: 03/23/22 07:38 Dose: Infused Pantoprazole Sodium 80 mg/ (Sodium Chloride) 100 mls @ 10 mls/hr IV .Q10H RONEY Last Admin: 03/23/22 16:03 Dose: 8 mg/hr, 10 mls/hr Sodium Bicarbonate 150 meq/ (Dextrose) 1,000 mls @ 100 mls/hr IV .Q10H RONEY Vasopressin 20 unit/ Sodium (Chloride) 101 mls @ 30.3 mls/hr IVCONT .Q3H20M RONEY Stop: 03/23/22 22:04 Last Admin: 03/23/22 19:23 Dose: 0.1 unit/min, 30.3 mls/hr Albumin Human (Kedbumin 25 %) 100 mls @ 100 mls/hr IV Q1H RONEY Stop: 03/23/22 21:44 Last Infusion: 03/23/22 20:55 Dose: 100 mls/hr Morphine Sulfate (Morphine Sulfate 2 Mg/Ml Cartridge) 2 mg IVPUSH Q4H PRN; Protocol PRN Reason: Pain, Severe (Pain Scale 7-10) Last Admin: 03/23/22 20:19 Dose: 2 mg Ondansetron HCl (Ondansetron Hcl 4 Mg/2 Ml Vial) 4 mg IVPUSH Q8H PRN PRN Reason: Nausea and Vomiting Last Admin: 03/23/22 15:45 Dose: 4 mg Pharmacy Consult (Consult Rx Perform Med Rec) 1 each MISCELLANE ONCE PRN PRN Reason: Consult order Sodium Chloride (0.9 % Sodium Chloride Flush 3 Ml Syringe) 3 ml IVFLUSH QSHIFT [facility] Last Admin: 03/23/22 16:15 Dose: 3 ml Sodium Zirconium Cyclosilicate (Sodium Zirconium Cyclosilicate 10 Gm Powd.Pack) 10 gm PO DAILY [facility] Last Admin: 03/23/22 17:32 Dose: Not Given Home Medications Medication Instructions Recorded Confirmed Last Taken Type amlodipine 5 mg tablet 5 mg PO DAILY 06/10/21 03/23/22 03/22/22 History lisinopril 40 mg tablet 40 mg PO DAILY 06/10/21 03/23/22 03/22/22 History Physical Exam Vital Signs: Vital Signs: Last Vital Signs Temp 96.6 F L 03/23/22 19:20 Pulse 81 03/23/22 19:49 Resp 20 03/23/22 19:49 BP 130/57 L 03/23/22 19:20 Pulse Ox 100 03/23/22 19:20 O2 Del Method 03/23/22 19:20 O2 Flow Rate 8 03/23/22 19:20 BMI result Body Mass Index 33.6 Results Labs CBC and Chem 7: 03/23/22 20:48 03/23/22 20:48 Labs: Laboratory Results - last 24 hr 03/23/22 03/23/22 03/23/22 01:26 01:26 01:43 MCV 108.8 H MCH 37.4 H MCHC 34.4 RDW 13.6 Plt Count 123 L MPV 10.2 Immature Gran % (Auto) 0.4 Neut % (Auto) 62.2 Lymph % (Auto) 16.6 L [place] % (Auto) 17.9 H Eos % (Auto) 2.1 Baso % (Auto) 0.8 Lymph # (Auto) 1.6 [place] # (Auto) 1.7 H Eos # (Auto) 0.2 Baso # (Auto) 0.1 Abs Immat Gran (auto) 0.04 H Absolute Neuts (auto) 6.0 Absolute Nucleated RBC 0.000 Nucleated RBC % (auto) 0.0 Smear Tech's Comments VERIFIED PT INR VBG pH VBG pCO2 VBG pO2 VBG HCO3 VBG O2 Saturation VBG Base Excess Anion Gap 19 Estim Creat Clear Calc 94.2 Estimated GFR > 60 POC Glucose Random Glucose 115 Lactic Acid Calcium 9.9 Total Bilirubin 1.5 H Direct Bilirubin 0.7 H AST 84 H ALT 31 Alkaline Phosphatase 104 Total Protein 7.1 Albumin 3.1 L Ethyl Alcohol < 10 COVID-19 ([facility]) Negative COVID-19 Clin Com See Note Blood Type Antibody Screen Crossmatch 03/23/22 03/23/22 03/23/22 02:23 06:11 08:40 MCV 109.6 H MCH 37.6 H MCHC 34.3 RDW 13.8 Plt Count 127 L MPV 11.2 Immature Gran % (Auto) 0.4 Neut % (Auto) 67.8 Lymph % (Auto) 14.6 L [place] % (Auto) 16.6 H Eos % (Auto) 0.1 Baso % (Auto) 0.5 Lymph # (Auto) 1.6 [place] # (Auto) 1.8 H Eos # (Auto) 0.0 Baso # (Auto) 0.1 Abs Immat Gran (auto) 0.04 H Absolute Neuts (auto) 7.5 Absolute Nucleated RBC 0.000 Nucleated RBC % (auto) 0.0 Smear Tech's Comments PT 23.9 H INR 2.0 H VBG pH VBG pCO2 VBG pO2 VBG HCO3 VBG O2 Saturation VBG Base Excess Anion Gap Estim Creat Clear Calc Estimated GFR POC Glucose Random Glucose Lactic Acid Calcium Total Bilirubin Direct Bilirubin AST ALT Alkaline Phosphatase Total Protein Albumin Ethyl Alcohol COVID-19 ([facility]) COVID-19 Clin Com Blood Type A Positive Antibody Screen NEGATIVE Crossmatch See Detail 03/23/22 03/23/22 03/23/22 11:21 13:32 14:57 MCV 112.4 H MCH 37.6 H MCHC 33.5 RDW 14.0 Plt Count 118 L MPV 10.6 Immature Gran % (Auto) Neut % (Auto) Lymph % (Auto) [place] % (Auto) Eos % (Auto) Baso % (Auto) Lymph # (Auto) [place] # (Auto) Eos # (Auto) Baso # (Auto) Abs Immat Gran (auto) Absolute Neuts (auto) Absolute Nucleated RBC 0.000 Nucleated RBC % (auto) 0.0 Smear Tech's Comments PT INR VBG pH VBG pCO2 VBG pO2 VBG HCO3 VBG O2 Saturation VBG Base Excess Anion Gap 25 H Estim Creat Clear Calc 52.0 Estimated GFR 44 POC Glucose 144 H Random Glucose 152 H Lactic Acid Calcium 9.3 D Total Bilirubin Direct Bilirubin AST ALT Alkaline Phosphatase Total Protein Albumin Ethyl Alcohol COVID-19 ([facility]CHUY) COVID-[facility] Blood Type Antibody Screen Crossmatch 03/23/22 03/23/22 03/23/22 16:25 16:25 16:25 MCV MCH MCHC RDW Plt Count MPV Immature Gran % (Auto) Neut % (Auto) Lymph % (Auto) [place] % (Auto) Eos % (Auto) Baso % (Auto) Lymph # (Auto) [place] # (Auto) Eos # (Auto) Baso # (Auto) Abs Immat Gran (auto) Absolute Neuts (auto) Absolute Nucleated RBC Nucleated RBC % (auto) Smear Tech's Comments PT 23.8 H INR 2.0 H VBG pH VBG pCO2 VBG pO2 VBG HCO3 VBG O2 Saturation VBG Base Excess Anion Gap 16 Estim Creat Clear Calc 70.2 Estimated GFR > 60 POC Glucose Random Glucose 185 H Lactic Acid 4.3 H* Calcium 9.0 Total Bilirubin Direct Bilirubin AST ALT Alkaline Phosphatase Total Protein Albumin Ethyl Alcohol COVID-19 ([facility]CHUY) COVID-[facility] Blood Type Antibody Screen Crossmatch 03/23/22 03/23/22 03/23/22 16:29 20:48 20:48 MCV 103.5 H D MCH 36.5 H MCHC 35.3 RDW 15.7 Plt Count 88 L D MPV 10.8 Immature Gran % (Auto) Neut % (Auto) Lymph % (Auto) [place] % (Auto) Eos % (Auto) Baso % (Auto) Lymph # (Auto) [place] # (Auto) Eos # (Auto) Baso # (Auto) Abs Immat Gran (auto) Absolute Neuts (auto) Absolute Nucleated RBC 0.000 Nucleated RBC % (auto) 0.0 Smear Tech's Comments PT INR VBG pH 7.40 VBG pCO2 34 VBG pO2 56 VBG HCO3 21 L VBG O2 Saturation 83.0 VBG Base Excess -2.8 Anion Gap Estim Creat Clear Calc Estimated GFR POC Glucose Random Glucose Lactic Acid 2.5 H* Calcium Total Bilirubin Direct Bilirubin AST ALT Alkaline Phosphatase Total Protein Albumin Ethyl Alcohol COVID-19 ([facility]CHUY) COVID-19 Clin Com Blood Type Antibody Screen Crossmatch 03/23/22 20:48 MCV MCH MCHC RDW Plt Count MPV Immature Gran % (Auto) Neut % (Auto) Lymph % (Auto) [place] % (Auto) Eos % (Auto) Baso % (Auto) Lymph # (Auto) [place] # (Auto) Eos # (Auto) Baso # (Auto) Abs Immat Gran (auto) Absolute Neuts (auto) Absolute Nucleated RBC Nucleated RBC % (auto) Smear Tech's Comments PT INR VBG pH VBG pCO2 VBG pO2 VBG HCO3 VBG O2 Saturation VBG Base Excess Anion Gap 16 Estim Creat Clear Calc 90.0 Estimated GFR > 60 POC Glucose Random Glucose 180 H Lactic Acid Calcium 8.7 Total Bilirubin Direct Bilirubin AST ALT Alkaline Phosphatase Total Protein Albumin Ethyl Alcohol COVID-19 ([facility]CHUY) COVID-19 Clin Com Blood Type Antibody Screen Crossmatch
--- NOTE | 2022-03-23 21:13 | W.PM.CCHP ---
Procedures Date of Service Date of Service: 03/23/22 Central Line Placement Left IJ: Central Line Comments: A quick time-out was made for clarification and proper patient identification, patient was positioned, landmarks were identified, US used to locate a large compressible IJ. The left neck was widely prepped and draped in a full sterile fashion. Ultrasound was used to locate again the left IJ, the vein was cannulated on the 1st pass with an 18 gauge thin needle, dark nonpulsatile blood return was obtained. The wire was threaded, a small incision was made at its base and dilator inserted. A 16 cm triple-lumen central venous catheter was advanced into the vein up to the hub without problems, wired was removed. Ports had good blood return and flushed x3. The catheter was secured with 3 sutures at 3 sites, a Biopatch and dry sterile dressing were applied. Post procedure chest x-ray showed the line to be in good position without pneumothorax. No bleeding or complications noted. At the same time, the right femoral central line catheter was removed (in fact I think it was barely in the right place for a with not flush or aspirate reason for which the above-mentioned catheter was placed) Consent for Procedure: Emergent-no informed consent obtained
[2022-03-23 22:52] LABS: Reflex Lactate? Lactic Acid Added
[2022-03-23] MEDS: Sodium Bicarbonate 8.4% 150 MEQ in Dextrose 5 % 850 ML 100 MEQ IV (23:15)
[2022-03-24] VITALS (24 sets, daily range): BP systolic 103–161; BP diastolic 49–69; PULSE 62–82; RESP 13–22; TEMP 36.2–36.8; O2SAT 93–98; BMI 34.5
[2022-03-24 00:35] LABS: ~Lactic Acid-LAB USE ONLY 2.5 mmol/L (0.5-2.0)
[2022-03-24 02:02] LABS: Reflex Lactate? 2 Y
[2022-03-24 02:19] LABS: Hemoglobin 7.4 g/dl (14.0-18.0)
[2022-03-24 02:34] LABS: Hematocrit 20.9 % (42.0-52.0)
[2022-03-24 02:35] LABS: ~Lactic Acid-LAB USE ONLY 2.7 mmol/L (0.5-2.0)
[2022-03-24] MEDS: Pantoprazole Sodium 80 MG in 0.9 % Sodium Chloride 80 ML 10 MG IV ×2 (03:14→11:17)
[2022-03-24] MEDS: ondansetron HCL 4 MG/2 ML VIAL IVPUSH (03:14)
[2022-03-24] MEDS: Morphine Sulfate 2 MG/ML CARTRIDGE IVPUSH ×2 (03:24→21:01)
[2022-03-24] MEDS: Phytonadione (Vit K1) 10 MG in 0.9 % Sodium Chloride 50 ML 51 MG IV ×3 (04:38→18:01)
[2022-03-24] MEDS: cefTRIAXone sodium 1 GM in 0.9 % Sodium Chloride 50 ML IV (05:19)
[2022-03-24] MEDS: Octreotide Acetate 500 MCG in 0.9 % Sodium Chloride 500 ML 50.1 MCG IVCONT ×2 (05:38→15:37)
[2022-03-24 06:31] LABS: Alanine Aminotransferase 253 U/L (0-40); Albumin Level 3.2 g/dL (3.5-5.0); Alkaline Phosphatase 58 U/L (39-117); Anion Gap 14 (12-20); Aspartate Amino Transferase 738 U/L (5-37); Bilirubin Total 3.5 mg/dL (0.0-1.0); Blood Urea Nitrogen 38 mg/dL (9-16); Calcium 8.8 mg/dL (8.4-10.2); Carbon Dioxide 25 mmol/L (22-29); Chloride 105 mmol/L (96-108); Creatinine Clr Calc Pharmacy 91.1; Estimated Glomerular Filt Rate > 60; Glucose Random 246 mg/dL (60-115); Potassium 4.7 mmol/L (3.3-5.1); Sodium 139 mmol/L (135-145); Total Protein 5.9 g/dL (6.5-8.0)
[2022-03-24 07:29] LABS: Estimated Average Glucose 94 mg/dL; Hemoglobin A1c % 4.9 %
--- NOTE | 2022-03-24 07:48 | HO.POSTANES ---
Post Anesthesia Evaluation Post Anesthesia Evaluation Vital Signs: Vital Signs Temp Pulse Resp BP Pulse Ox O2 Del Method O2 Flow Rate 03/24/22 06:59 98.1 F 67 15 160/64 H 03/24/22 05:50 98.1 F 68 16 136/66 03/24/22 05:31 98.1 F 70 14 135/62 03/24/22 05:08 97.5 F 68 18 130/61 03/24/22 03:20 97.7 F 81 20 138/62 03/24/22 03:01 97.7 F 73 15 125/52 L 03/24/22 07:00 98.1 F 66 14 161/66 H 95 Nasal Cannula 3 03/24/22 06:00 98.1 F 66 16 141/63 H 95 Nasal Cannula 3 03/24/22 05:00 97.7 F 71 15 130/61 96 Nasal Cannula 3 03/24/22 04:00 97.7 F 68 14 130/59 L 98 Nasal Cannula 3 03/24/22 03:00 97.7 F 82 19 125/52 L 94 Nasal Cannula 3 03/24/22 02:00 97.5 F 75 14 131/50 L 96 Nasal Cannula 3 03/24/22 01:00 97.3 F 78 15 129/51 L 94 Nasal Cannula 3 03/24/22 00:00 97.2 F 78 19 132/65 94 Nasal Cannula 3 03/23/22 23:00 97.2 F 78 21 H 138/58 L 95 Nasal Cannula 3 03/23/22 20:00 97.2 F 78 24 H 138/48 L 92 Nasal Cannula 3 03/23/22 22:00 81 21 H 139/58 L 95 Nasal Cannula 3 03/23/22 21:00 97.3 F 78 125/51 L 91 L Nasal Cannula 3 03/23/22 19:49 81 20 Anesthesia: Monitored Mental Status: Awake Pain Control: Satisfactory Nausea/Vomiting: None Hydration: Adequate Anesthesia-Related Issues: No Anes. Related Issues
[2022-03-24 07:53] LABS: Basophils Percent Auto 0.2 % (0-2); Hematocrit 25.3 % (42.0-52.0); Hemoglobin 8.9 g/dl (14.0-18.0); Imm Gran Abs Auto 0.07 X10*3/uL (0.00-0.03); Imm Gran Pct Auto 0.5 % (0.0-0.4); Lymphocytes Absolute Auto 0.8 X10*3/uL (1.2-4.9); Lymphocytes Percent Auto 5.4 % (20-40); Mean Corpuscular HGB Conc 35.2 g/dl (31.0-36.0); Mean Corpuscular Volume 99.6 fL (80.0-98.0); Mean Platelet Volume 11.4 fL (9.4-12.4); Monocytes Absolute Auto 1.2 X10*3/uL (0.1-1.2); Monocytes Percent Auto 8.6 % (2-11); Neutrophils Absolute Auto 11.7 x10*3/uL (2.0-8.3); Neutrophils Percent Auto 85.3 % (45-73); Red Blood Count 2.54 X10*6/uL (4.60-5.80); Red Cell Distribution Width 16.5 % (11.0-16.0); White Blood Count 13.8 X10*3/uL (4.8-10.8)
[2022-03-24] MEDS: 0.9 % Sodium Chloride Flush 3 ML SYRINGE IVFLUSH ×2 (07:55→15:43)
[2022-03-24] MEDS: Sodium Zirconium Cyclosilicate 10 GM POWD.PACK PO (07:55)
[2022-03-24] MEDS: amLODIPine Besylate 5 MG TABLET PO (07:55)
[2022-03-24 08:08] LABS: Platelet Count 62 X10*3/uL (160-400)
[2022-03-24 08:09] LABS: MANUAL DIFF FLAG NO
--- NOTE | 2022-03-24 08:53 | PM.GIPN ---
Subjective Subjective Date of Service: 03/24/22 Interval History: better today no further hematemesis since banding yesterday no abdominal pain he feels thirsty passing urine thru [facility] Time (minutes): 0 Physical Exam Vital Signs: Vital Signs: Last Vital Signs Temp 97.9 F 03/24/22 08:00 Pulse 69 03/24/22 08:00 Resp 14 03/24/22 08:00 BP 145/62 H 03/24/22 08:00 Pulse Ox 94 03/24/22 08:00 O2 Del Method 03/24/22 08:00 O2 Flow Rate 3 03/24/22 08:00 BMI result Body Mass Index 34.5 EXAM: GENERAL: The patient is relaxed VITAL SIGNS:see workflow HEENT: Nonicteric sclerae, PERRLA, EOMI. Oropharynx clear. Moist mucous membranes. Conjunctivae appear well perfused. No thyroid mass. CHEST: Chest wall is nontender. HEART: Regular rate and rhythm without murmurs. LUNGS: Clear to auscultation bilaterally. ABDOMEN: Soft, positive bowel sounds, nontender, no organomegaly.no flank tenderness, distended abdomen SKIN: No rash, no excessive bruising, petechiae, or purpura. NEUROLOGIC: Cranial nerves II-XII intact without motor/sensory deficit. no tremors Psych-- nml affect, Objective Data Labs CBC & Chem 7: 03/24/22 07:26 03/24/22 05:30 Labs: Laboratory Results - last 24 hr 03/23/22 03/23/22 03/23/22 08:40 11:21 13:32 WBC 14.2 H RBC 1.78 L Hgb 6.7 L* Hct 20.0 L* MCV 112.4 H MCH 37.6 H MCHC 33.5 RDW 14.0 Plt Count 118 L MPV 10.6 Immature Gran % (Auto) Neut % (Auto) Lymph % (Auto) [place] % (Auto) Eos % (Auto) Baso % (Auto) Lymph # (Auto) [place] # (Auto) Eos # (Auto) Baso # (Auto) Abs Immat Gran (auto) Absolute Neuts (auto) Absolute Nucleated RBC 0.000 Nucleated RBC % (auto) 0.0 PT INR VBG pH VBG pCO2 VBG pO2 VBG HCO3 VBG O2 Saturation VBG Base Excess Sodium 136 Potassium 7.2 H* D Chloride 107 Carbon Dioxide 11 L Anion Gap 25 H BUN 45 H D Creatinine 1.54 H Estim Creat Clear Calc 52.0 Estimated GFR 44 POC Glucose Random Glucose 152 H Estimat Average Glucose Hemoglobin A1c % Insulin Level Lactic Acid Lactic Acid F/U @ 2Hr Lactic Acid F/U @ 4Hr Calcium 9.3 D Total Bilirubin AST ALT Alkaline Phosphatase Total Protein Albumin Blood Type A Positive Antibody Screen NEGATIVE Crossmatch See Detail 03/23/22 03/23/22 03/23/22 13:32 14:57 16:25 WBC RBC Hgb Hct MCV MCH MCHC RDW Plt Count MPV Immature Gran % (Auto) Neut % (Auto) Lymph % (Auto) [place] % (Auto) Eos % (Auto) Baso % (Auto) Lymph # (Auto) [place] # (Auto) Eos # (Auto) Baso # (Auto) Abs Immat Gran (auto) Absolute Neuts (auto) Absolute Nucleated RBC Nucleated RBC % (auto) PT INR VBG pH VBG pCO2 VBG pO2 VBG HCO3 VBG O2 Saturation VBG Base Excess Sodium Potassium 7.2 H* Chloride Carbon Dioxide Anion Gap BUN Creatinine Estim Creat Clear Calc Estimated GFR POC Glucose 144 H Random Glucose Estimat Average Glucose Hemoglobin A1c % Insulin Level 43 H Lactic Acid Lactic Acid F/U @ 2Hr Lactic Acid F/U @ 4Hr Calcium Total Bilirubin AST ALT Alkaline Phosphatase Total Protein Albumin Blood Type Antibody Screen Crossmatch 03/23/22 03/23/22 03/23/22 16:25 16:25 16:25 WBC RBC Hgb 6.5 L* Hct 19.1 L* MCV MCH MCHC RDW Plt Count MPV Immature Gran % (Auto) Neut % (Auto) Lymph % (Auto) [place] % (Auto) Eos % (Auto) Baso % (Auto) Lymph # (Auto) [place] # (Auto) Eos # (Auto) Baso # (Auto) Abs Immat Gran (auto) Absolute Neuts (auto) Absolute Nucleated RBC Nucleated RBC % (auto) PT 23.8 H INR 2.0 H VBG pH VBG pCO2 VBG pO2 VBG HCO3 VBG O2 Saturation VBG Base Excess Sodium 135 Potassium 5.4 H D Chloride 104 Carbon Dioxide 20 L Anion Gap 16 BUN 42 H Creatinine 1.14 Estim Creat Clear Calc 70.2 Estimated GFR > 60 POC Glucose Random Glucose 185 H Estimat Average Glucose Hemoglobin A1c % Insulin Level Lactic Acid Lactic Acid F/U @ 2Hr Lactic Acid F/U @ 4Hr Calcium 9.0 Total Bilirubin AST ALT Alkaline Phosphatase Total Protein Albumin Blood Type Antibody Screen Crossmatch 03/23/22 03/23/22 03/23/22 16:25 16:29 20:48 WBC RBC Hgb Hct MCV MCH MCHC RDW Plt Count MPV Immature Gran % (Auto) Neut % (Auto) Lymph % (Auto) [place] % (Auto) Eos % (Auto) Baso % (Auto) Lymph # (Auto) [place] # (Auto) Eos # (Auto) Baso # (Auto) Abs Immat Gran (auto) Absolute Neuts (auto) Absolute Nucleated RBC Nucleated RBC % (auto) PT INR VBG pH 7.40 VBG pCO2 34 VBG pO2 56 VBG HCO3 21 L VBG O2 Saturation 83.0 VBG Base Excess -2.8 Sodium Potassium Chloride Carbon Dioxide Anion Gap BUN Creatinine Estim Creat Clear Calc Estimated GFR POC Glucose Random Glucose Estimat Average Glucose Hemoglobin A1c % Insulin Level Lactic Acid 4.3 H* 2.5 H* Lactic Acid F/U @ 2Hr Lactic Acid F/U @ 4Hr Calcium Total Bilirubin AST ALT Alkaline Phosphatase Total Protein Albumin Blood Type Antibody Screen Crossmatch 03/23/22 03/23/22 03/23/22 20:48 20:48 23:48 WBC 13.0 H RBC 2.30 L D Hgb 8.4 L D Hct 23.8 L D MCV 103.5 H D MCH 36.5 H MCHC 35.3 RDW 15.7 Plt Count 88 L D MPV 10.8 Immature Gran % (Auto) Neut % (Auto) Lymph % (Auto) [place] % (Auto) Eos % (Auto) Baso % (Auto) Lymph # (Auto) [place] # (Auto) Eos # (Auto) Baso # (Auto) Abs Immat Gran (auto) Absolute Neuts (auto) Absolute Nucleated RBC 0.000 Nucleated RBC % (auto) 0.0 PT INR VBG pH VBG pCO2 VBG pO2 VBG HCO3 VBG O2 Saturation VBG Base Excess Sodium 136 Potassium 4.9 Chloride 105 Carbon Dioxide 20 L Anion Gap 16 BUN 42 H Creatinine 0.89 Estim Creat Clear Calc 90.0 Estimated GFR > 60 POC Glucose Random Glucose 180 H Estimat Average Glucose Hemoglobin A1c % Insulin Level Lactic Acid Lactic Acid F/U @ 2Hr 2.5 H* Lactic Acid F/U @ 4Hr Calcium 8.7 Total Bilirubin AST ALT Alkaline Phosphatase Total Protein Albumin Blood Type Antibody Screen Crossmatch 03/24/22 03/24/22 03/24/22 02:12 02:12 05:30 WBC RBC Hgb 7.4 L Hct 20.9 L* MCV MCH MCHC RDW Plt Count MPV Immature Gran % (Auto) Neut % (Auto) Lymph % (Auto) [place] % (Auto) Eos % (Auto) Baso % (Auto) Lymph # (Auto) [place] # (Auto) Eos # (Auto) Baso # (Auto) Abs Immat Gran (auto) Absolute Neuts (auto) Absolute Nucleated RBC Nucleated RBC % (auto) PT INR VBG pH VBG pCO2 VBG pO2 VBG HCO3 VBG O2 Saturation VBG Base Excess Sodium Potassium Chloride Carbon Dioxide Anion Gap BUN Creatinine Estim Creat Clear Calc Estimated GFR POC Glucose Random Glucose Estimat Average Glucose 94 Hemoglobin A1c % 4.9 Insulin Level Lactic Acid Lactic Acid F/U @ 2Hr Lactic Acid F/U @ 4Hr 2.7 H* Calcium Total Bilirubin AST ALT Alkaline Phosphatase Total Protein Albumin Blood Type Antibody Screen Crossmatch 03/24/22 03/24/22 05:30 07:26 WBC 13.8 H RBC 2.54 L Hgb 8.9 L D Hct 25.3 L D MCV 99.6 H MCH 35.0 H MCHC 35.2 RDW 16.5 H Plt Count 62 L D MPV 11.4 Immature Gran % (Auto) 0.5 H Neut % (Auto) 85.3 H Lymph % (Auto) 5.4 L [place] % (Auto) 8.6 Eos % (Auto) 0.0 Baso % (Auto) 0.2 Lymph # (Auto) 0.8 L [place] # (Auto) 1.2 Eos # (Auto) 0.0 Baso # (Auto) 0.0 Abs Immat Gran (auto) 0.07 H Absolute Neuts (auto) 11.7 H Absolute Nucleated RBC 0.000 Nucleated RBC % (auto) 0.0 PT INR VBG pH VBG pCO2 VBG pO2 VBG HCO3 VBG O2 Saturation VBG Base Excess Sodium 139 Potassium 4.7 Chloride 105 Carbon Dioxide 25 Anion Gap 14 BUN 38 H Creatinine 0.89 Estim Creat Clear Calc 91.1 Estimated GFR > 60 POC Glucose Random Glucose 246 H D Estimat Average Glucose Hemoglobin A1c % Insulin Level Lactic Acid Lactic Acid F/U @ 2Hr Lactic Acid F/U @ 4Hr Calcium 8.8 Total Bilirubin 3.5 H AST 738 H ALT 253 H Alkaline Phosphatase 58 D Total Protein 5.9 L Albumin 3.2 L Blood Type Antibody Screen Crossmatch Procedures Date of Service Date of Service: 03/24/22 Progress Note: A&P Assessment and plan (1) History of esophageal varices: Status: Acute (2) Acute upper gastrointestinal bleeding: Status: Acute (3) Cirrhosis: Status: Acute Plan 1/ Acute blood loss anemia from variceal bleeding s/p banding, seems much more stable now PLAN: 1/ Can advance to clears later today 2/ Can stop octrretoide tomorrow 3/ Can transition to PO PPI later today 4/ If remains stable can commence low dose statin which reduces portal pressure and carvedilol prior to d/c 5/ Please get liver US r/o liver neoplasia or portal vein thrombus, if ascites present shoudl be tapped for diagnostic reasons, can be done in the next few days once stable from Gi bleed standpoint. 6/ will need repeat EGD in about 2-4 weeks Time Spent With Patient Time: Total time spent is greater than 50% in coordination of care (as documented) at patient's floor/unit and/or counseling patient: Quality Stroke Does the patient have a stroke diagnosis?: No VTE Prior VTE?: No VTE Risk Level:: Medical - moderate - high VTE Device Contraindication: N/A - Device Ordered VTE Drug Contraindication: Treatment Not Indicated
[2022-03-24] MEDS: 0.9 % Sodium Chloride 1,000 ML 250 ML IVCONT (11:30)
[2022-03-24 12:15] LABS: Hematocrit 24.7 % (42.0-52.0); Hemoglobin 8.7 g/dl (14.0-18.0)
[2022-03-24 12:30] LABS: Anion Gap 11 (12-20); Blood Urea Nitrogen 35 mg/dL (9-16); Calcium 8.7 mg/dL (8.4-10.2); Carbon Dioxide 28 mmol/L (22-29); Chloride 107 mmol/L (96-108); Creatinine Clr Calc Pharmacy 105.4; Estimated Glomerular Filt Rate > 60; Glucose Random 174 mg/dL (60-115); Potassium 4.1 mmol/L (3.3-5.1); Sodium 142 mmol/L (135-145)
[2022-03-24 12:37] LABS: INTERNATIONAL NORM RATIO 2.2 (0.9-1.1); Prothrombin Time 25.5 SEC (10.0-13.1)
--- NOTE | 2022-03-24 12:55 | PM.CCPN ---
Subjective Subjective Date of Service: 03/24/22 Interval History: Mr. Davis was transferred to the ICU yesterday evening with an upper GI bleed and hemorrhagic shock. 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 Also history of hypertension, coronary disease status post CABG x3 about 12 years ago, fibromyalgia, and chronic back pain.? The patient told me he has had 2 previous episodes of upper GI bleeding which he said were attributed to his drinking.? According to our records, his last EGD was in [address] Frank, which showed nonbleeding varices.? He has never been banded previously. The patient presented to the ED early yesterday morning just past midnight complaining of abdominal pain and black stools.? He was hemodynamically stable.? Initial hemoglobin was 9.9 with a platelet count of a [id number].? INR was 2.0. ?He was placed on PPI, octreotide, and ceftriaxone (SBP prophylaxis) and admitted to Medicine.? Subsequently while still in the ED, he started having multiple episodes of ankit bloody hematemesis and became hypotensive.? Hemoglobin dropped to 6.5.? Positive lactate and his renal indices bumped slightly.? The patient was started on vasopressin, he was given 2 units of FFP and 2 units of blood. In the evening, he was taken to endoscopy by Dr. Sánchez.? The stomach was full of blood and clots.? There was no bleeding or ulcers in the duodenum or distal stomach.? Fresh blood was emanating from the lower esophagus; at least 2 cords of grade 2 varices were seen and those were suspected to be the bleeding source.? Five bands were deployed at the base of the esophagus and GE junction, with apparent cessation of bleeding.? Hemo spray was then applied.? Following that, the patient was transferred to the ICU. ?to the ICU. A central line was placed.? A recheck of his PT showed no correction. ?Overnight, vol resusc continued.? He was given 2 more units of FFP and 2 more units of blood. ?There was no further hematemesis. This morning he is awake, alert, and oriented, although looks a little bit washed out.? Breathing easy with sat 95% on 2.5 L oxygen by nasal cannula.? Heart rate is 66, blood pressure 150/69 on vasopressin 0.1 units.? Afebrile.? No jugular venous distention with the head of the bed at 30 degrees.? Chest is clear to auscultation, with normal expiratory phase.? Heart tones are soft, RRR, normal-sounding S1 and S2, with no murmur or gallops.? The abdomen is large, suggestive of ascites.? Good bowel sounds.? The belly is otherwise soft and benign.? He has no peripheral edema. LABORATORY DATA:? Below.? Notably, hemoglobin is 8.9, [place] [id number].? Repeat PT/INR is pending.? BUN creatinine are down to 38/0.89.? Bicarb is 25, potassium is 4.7.? Total bili is up to 3.5, AST/ALT up to 738/253.? Albumin is 3.2. Abdominal ultrasound yesterday showed no free fluid.? Notably, there were 2 LESIONS IN THE RIGHT HEPATIC LOBE, SUSPICIOUS FOR MALIGNANCY, according to the radiologist. IMPRESSION: 1. Hepatic cirrhosis 2. Alcohol abuse 3. Coagulopathy.? Uncorrectable w FFP and Vit K. 4. Recurrent upper GI bleed due to esophageal varices.? Banded.? I discussed with Dr. Sánchez whether he should be rescoped today.? He doesn?t think there?s a need.? The trend of Hb and renal indices suggest that there is no further bleeding.? Continuing the octreotide and PPI infusion.? I will discontinue the vasopressin now. 5. Hemorrhagic shock.? Resolved. 6. Hypovolemia.? His renal indices suggest that he may still be dry.? I?m giving him an extra liter of normal saline now, following which he can orally rehydrate himself. 7. Acute kidney injury. ?2? above.? Resolving. 8. Mild hypoxemia, likely secondary to aspiration.? I see no need for abx. 9. HEPATIC LESIONS SUSPICIOUS FOR MALIGNANCY.? Needs f/u. Stable for transfer to [facility] [place].? I will sign out to the hospitalists. Critical Care Time (minutes): 0 Physical Exam Vital Signs: Vital Signs: Last Vital Signs Temp 97.7 F 03/24/22 12:00 Pulse 64 03/24/22 12:00 Resp 13 03/24/22 12:00 BP 150/64 H 03/24/22 12:00 Pulse Ox 93 03/24/22 12:00 O2 Del Method 03/24/22 12:00 O2 Flow Rate 3 03/24/22 12:00 BMI result Body Mass Index 34.5 Objective Data Labs CBC & Chem 7: 03/24/22 11:58 03/24/22 11:58 Labs: Laboratory Results - last 24 hr 03/23/22 03/23/22 03/23/22 08:40 13:32 13:32 WBC 14.2 H RBC 1.78 L Hgb 6.7 L* Hct 20.0 L* MCV 112.4 H MCH 37.6 H MCHC 33.5 RDW 14.0 Plt Count 118 L MPV 10.6 Immature Gran % (Auto) Neut % (Auto) Lymph % (Auto) [place] % (Auto) Eos % (Auto) Baso % (Auto) Lymph # (Auto) [place] # (Auto) Eos # (Auto) Baso # (Auto) Abs Immat Gran (auto) Absolute Neuts (auto) Absolute Nucleated RBC 0.000 Nucleated RBC % (auto) 0.0 Smear Path Review SEE NOTE PT INR VBG pH VBG pCO2 VBG pO2 VBG HCO3 VBG O2 Saturation VBG Base Excess Sodium Potassium 7.2 H* Chloride Carbon Dioxide Anion Gap BUN Creatinine Estim Creat Clear Calc Estimated GFR POC Glucose Random Glucose Estimat Average Glucose Hemoglobin A1c % Insulin Level Lactic Acid Lactic Acid F/U @ 2Hr Lactic Acid F/U @ 4Hr Calcium Total Bilirubin AST ALT Alkaline Phosphatase Total Protein Albumin Blood Type A Positive Antibody Screen NEGATIVE Crossmatch See Detail 03/23/22 03/23/22 03/23/22 14:57 16:25 16:25 WBC RBC Hgb Hct MCV MCH MCHC RDW Plt Count MPV Immature Gran % (Auto) Neut % (Auto) Lymph % (Auto) [place] % (Auto) Eos % (Auto) Baso % (Auto) Lymph # (Auto) [place] # (Auto) Eos # (Auto) Baso # (Auto) Abs Immat Gran (auto) Absolute Neuts (auto) Absolute Nucleated RBC Nucleated RBC % (auto) Smear Path Review PT INR VBG pH VBG pCO2 VBG pO2 VBG HCO3 VBG O2 Saturation VBG Base Excess Sodium 135 Potassium 5.4 H D Chloride 104 Carbon Dioxide 20 L Anion Gap 16 BUN 42 H Creatinine 1.14 Estim Creat Clear Calc 70.2 Estimated GFR > 60 POC Glucose 144 H Random Glucose 185 H Estimat Average Glucose Hemoglobin A1c % Insulin Level 43 H Lactic Acid Lactic Acid F/U @ 2Hr Lactic Acid F/U @ 4Hr Calcium 9.0 Total Bilirubin AST ALT Alkaline Phosphatase Total Protein Albumin Blood Type Antibody Screen Crossmatch 03/23/22 03/23/22 03/23/22 16:25 16:25 16:25 WBC RBC Hgb 6.5 L* Hct 19.1 L* MCV MCH MCHC RDW Plt Count MPV Immature Gran % (Auto) Neut % (Auto) Lymph % (Auto) [place] % (Auto) Eos % (Auto) Baso % (Auto) Lymph # (Auto) [place] # (Auto) Eos # (Auto) Baso # (Auto) Abs Immat Gran (auto) Absolute Neuts (auto) Absolute Nucleated RBC Nucleated RBC % (auto) Smear Path Review PT 23.8 H INR 2.0 H VBG pH VBG pCO2 VBG pO2 VBG HCO3 VBG O2 Saturation VBG Base Excess Sodium Potassium Chloride Carbon Dioxide Anion Gap BUN Creatinine Estim Creat Clear Calc Estimated GFR POC Glucose Random Glucose Estimat Average Glucose Hemoglobin A1c % Insulin Level Lactic Acid 4.3 H* Lactic Acid F/U @ 2Hr Lactic Acid F/U @ 4Hr Calcium Total Bilirubin AST ALT Alkaline Phosphatase Total Protein Albumin Blood Type Antibody Screen Crossmatch 03/23/22 03/23/22 03/23/22 16:29 20:48 20:48 WBC 13.0 H RBC 2.30 L D Hgb 8.4 L D Hct 23.8 L D MCV 103.5 H D MCH 36.5 H MCHC 35.3 RDW 15.7 Plt Count 88 L D MPV 10.8 Immature Gran % (Auto) Neut % (Auto) Lymph % (Auto) [place] % (Auto) Eos % (Auto) Baso % (Auto) Lymph # (Auto) [place] # (Auto) Eos # (Auto) Baso # (Auto) Abs Immat Gran (auto) Absolute Neuts (auto) Absolute Nucleated RBC 0.000 Nucleated RBC % (auto) 0.0 Smear Path Review PT INR VBG pH 7.40 VBG pCO2 34 VBG pO2 56 VBG HCO3 21 L VBG O2 Saturation 83.0 VBG Base Excess -2.8 Sodium Potassium Chloride Carbon Dioxide Anion Gap BUN Creatinine Estim Creat Clear Calc Estimated GFR POC Glucose Random Glucose Estimat Average Glucose Hemoglobin A1c % Insulin Level Lactic Acid 2.5 H* Lactic Acid F/U @ 2Hr Lactic Acid F/U @ 4Hr Calcium Total Bilirubin AST ALT Alkaline Phosphatase Total Protein Albumin Blood Type Antibody Screen Crossmatch 03/23/22 03/23/22 03/24/22 20:48 23:48 02:12 WBC RBC Hgb 7.4 L Hct 20.9 L* MCV MCH MCHC RDW Plt Count MPV Immature Gran % (Auto) Neut % (Auto) Lymph % (Auto) [place] % (Auto) Eos % (Auto) Baso % (Auto) Lymph # (Auto) [place] # (Auto) Eos # (Auto) Baso # (Auto) Abs Immat Gran (auto) Absolute Neuts (auto) Absolute Nucleated RBC Nucleated RBC % (auto) Smear Path Review PT INR VBG pH VBG pCO2 VBG pO2 VBG HCO3 VBG O2 Saturation VBG Base Excess Sodium 136 Potassium 4.9 Chloride 105 Carbon Dioxide 20 L Anion Gap 16 BUN 42 H Creatinine 0.89 Estim Creat Clear Calc 90.0 Estimated GFR > 60 POC Glucose Random Glucose 180 H Estimat Average Glucose Hemoglobin A1c % Insulin Level Lactic Acid Lactic Acid F/U @ 2Hr 2.5 H* Lactic Acid F/U @ 4Hr Calcium 8.7 Total Bilirubin AST ALT Alkaline Phosphatase Total Protein Albumin Blood Type Antibody Screen Crossmatch 03/24/22 03/24/22 03/24/22 02:12 05:30 05:30 WBC RBC Hgb Hct MCV MCH MCHC RDW Plt Count MPV Immature Gran % (Auto) Neut % (Auto) Lymph % (Auto) [place] % (Auto) Eos % (Auto) Baso % (Auto) Lymph # (Auto) [place] # (Auto) Eos # (Auto) Baso # (Auto) Abs Immat Gran (auto) Absolute Neuts (auto) Absolute Nucleated RBC Nucleated RBC % (auto) Smear Path Review PT INR VBG pH VBG pCO2 VBG pO2 VBG HCO3 VBG O2 Saturation VBG Base Excess Sodium 139 Potassium 4.7 Chloride 105 Carbon Dioxide 25 Anion Gap 14 BUN 38 H Creatinine 0.89 Estim Creat Clear Calc 91.1 Estimated GFR > 60 POC Glucose Random Glucose 246 H D Estimat Average Glucose 94 Hemoglobin A1c % 4.9 Insulin Level Lactic Acid Lactic Acid F/U @ 2Hr Lactic Acid F/U @ 4Hr 2.7 H* Calcium 8.8 Total Bilirubin 3.5 H AST 738 H ALT 253 H Alkaline Phosphatase 58 D Total Protein 5.9 L Albumin 3.2 L Blood Type Antibody Screen Crossmatch 03/24/22 03/24/22 03/24/22 07:26 11:58 11:58 WBC 13.8 H RBC 2.54 L Hgb 8.9 L D 8.7 L Hct 25.3 L D 24.7 L MCV 99.6 H MCH 35.0 H MCHC 35.2 RDW 16.5 H Plt Count 62 L D MPV 11.4 Immature Gran % (Auto) 0.5 H Neut % (Auto) 85.3 H Lymph % (Auto) 5.4 L [place] % (Auto) 8.6 Eos % (Auto) 0.0 Baso % (Auto) 0.2 Lymph # (Auto) 0.8 L [place] # (Auto) 1.2 Eos # (Auto) 0.0 Baso # (Auto) 0.0 Abs Immat Gran (auto) 0.07 H Absolute Neuts (auto) 11.7 H Absolute Nucleated RBC 0.000 Nucleated RBC % (auto) 0.0 Smear Path Review PT 25.5 H INR 2.2 H VBG pH VBG pCO2 VBG pO2 VBG HCO3 VBG O2 Saturation VBG Base Excess Sodium Potassium Chloride Carbon Dioxide Anion Gap BUN Creatinine Estim Creat Clear Calc Estimated GFR POC Glucose Random Glucose Estimat Average Glucose Hemoglobin A1c % Insulin Level Lactic Acid Lactic Acid F/U @ 2Hr Lactic Acid F/U @ 4Hr Calcium Total Bilirubin AST ALT Alkaline Phosphatase Total Protein Albumin Blood Type Antibody Screen Crossmatch 03/24/22 03/24/22 11:58 11:58 WBC RBC Hgb Hct MCV MCH MCHC RDW Plt Count MPV Immature Gran % (Auto) Neut % (Auto) Lymph % (Auto) [place] % (Auto) Eos % (Auto) Baso % (Auto) Lymph # (Auto) [place] # (Auto) Eos # (Auto) Baso # (Auto) Abs Immat Gran (auto) Absolute Neuts (auto) Absolute Nucleated RBC Nucleated RBC % (auto) Smear Path Review PT INR VBG pH VBG pCO2 VBG pO2 VBG HCO3 VBG O2 Saturation VBG Base Excess Sodium 142 Potassium 4.1 Chloride 107 Carbon Dioxide 28 Anion Gap 11 L BUN 35 H Creatinine 0.77 Estim Creat Clear Calc 105.4 Estimated GFR > 60 POC Glucose Random Glucose 174 H Estimat Average Glucose Hemoglobin A1c % Insulin Level Lactic Acid 2.0 Lactic Acid F/U @ 2Hr Lactic Acid F/U @ 4Hr Calcium 8.7 Total Bilirubin AST ALT Alkaline Phosphatase Total Protein Albumin Blood Type Antibody Screen Crossmatch Quality Stroke Does the patient have a stroke diagnosis?: No VTE Prior VTE?: No VTE Risk Level:: Medical - moderate - high VTE Device Contraindication: N/A - Device Ordered VTE Drug Contraindication: Treatment Not Indicated
--- NOTE | 2022-03-24 16:50 | PM.EVENT ---
Event Note Date of Service: 03/25/22 Event Note: day hospitalist update S abd pain resolved no further hematemesis O Temperature 98.2 F 03/24/22 14:00 Pulse Rate 72 03/24/22 14:00 Respiratory Rate 14 03/24/22 14:00 Blood Pressure 123/54 L 03/24/22 14:00 Pulse Oximetry 96 03/24/22 14:00 Oxygen Delivery Method 03/24/22 14:00 Oxygen Flow Rate 3 03/24/22 14:00 gen- scleral icterus, NAD lungs- CTAB CV- RRR no m/r/g abd- soft, obese, NT ext- no edema neuro- no asterixis Laboratory Results - last 24 hr 03/23/22 03/23/22 03/23/22 08:40 13:32 16:25 WBC RBC Hgb Hct MCV MCH MCHC RDW Plt Count MPV Immature Gran % (Auto) Neut % (Auto) Lymph % (Auto) [place] % (Auto) Eos % (Auto) Baso % (Auto) Lymph # (Auto) [place] # (Auto) Eos # (Auto) Baso # (Auto) Abs Immat Gran (auto) Absolute Neuts (auto) Absolute Nucleated RBC Nucleated RBC % (auto) Smear Path Review SEE NOTE PT INR Sodium Potassium Chloride Carbon Dioxide Anion Gap BUN Creatinine Estim Creat Clear Calc Estimated GFR Random Glucose Estimat Average Glucose Hemoglobin A1c % Insulin Level 43 H Lactic Acid Lactic Acid F/U @ 2Hr Lactic Acid F/U @ 4Hr Calcium Total Bilirubin AST ALT Alkaline Phosphatase Total Protein Albumin Blood Type A Positive Antibody Screen NEGATIVE Crossmatch See Detail 03/23/22 03/23/22 03/23/22 16:25 20:48 20:48 WBC 13.0 H RBC 2.30 L D Hgb 8.4 L D Hct 23.8 L D MCV 103.5 H D MCH 36.5 H MCHC 35.3 RDW 15.7 Plt Count 88 L D MPV 10.8 Immature Gran % (Auto) Neut % (Auto) Lymph % (Auto) [place] % (Auto) Eos % (Auto) Baso % (Auto) Lymph # (Auto) [place] # (Auto) Eos # (Auto) Baso # (Auto) Abs Immat Gran (auto) Absolute Neuts (auto) Absolute Nucleated RBC 0.000 Nucleated RBC % (auto) 0.0 Smear Path Review PT INR Sodium 135 Potassium 5.4 H D Chloride 104 Carbon Dioxide 20 L Anion Gap 16 BUN 42 H Creatinine 1.14 Estim Creat Clear Calc 70.2 Estimated GFR > 60 Random Glucose 185 H Estimat Average Glucose Hemoglobin A1c % Insulin Level Lactic Acid 2.5 H* Lactic Acid F/U @ 2Hr Lactic Acid F/U @ 4Hr Calcium 9.0 Total Bilirubin AST ALT Alkaline Phosphatase Total Protein Albumin Blood Type Antibody Screen Crossmatch 03/23/22 03/23/22 03/24/22 20:48 23:48 02:12 WBC RBC Hgb 7.4 L Hct 20.9 L* MCV MCH MCHC RDW Plt Count MPV Immature Gran % (Auto) Neut % (Auto) Lymph % (Auto) [place] % (Auto) Eos % (Auto) Baso % (Auto) Lymph # (Auto) [place] # (Auto) Eos # (Auto) Baso # (Auto) Abs Immat Gran (auto) Absolute Neuts (auto) Absolute Nucleated RBC Nucleated RBC % (auto) Smear Path Review PT INR Sodium 136 Potassium 4.9 Chloride 105 Carbon Dioxide 20 L Anion Gap 16 BUN 42 H Creatinine 0.89 Estim Creat Clear Calc 90.0 Estimated GFR > 60 Random Glucose 180 H Estimat Average Glucose Hemoglobin A1c % Insulin Level Lactic Acid Lactic Acid F/U @ 2Hr 2.5 H* Lactic Acid F/U @ 4Hr Calcium 8.7 Total Bilirubin AST ALT Alkaline Phosphatase Total Protein Albumin Blood Type Antibody Screen Crossmatch 03/24/22 03/24/22 03/24/22 02:12 05:30 05:30 WBC RBC Hgb Hct MCV MCH MCHC RDW Plt Count MPV Immature Gran % (Auto) Neut % (Auto) Lymph % (Auto) [place] % (Auto) Eos % (Auto) Baso % (Auto) Lymph # (Auto) [place] # (Auto) Eos # (Auto) Baso # (Auto) Abs Immat Gran (auto) Absolute Neuts (auto) Absolute Nucleated RBC Nucleated RBC % (auto) Smear Path Review PT INR Sodium 139 Potassium 4.7 Chloride 105 Carbon Dioxide 25 Anion Gap 14 BUN 38 H Creatinine 0.89 Estim Creat Clear Calc 91.1 Estimated GFR > 60 Random Glucose 246 H D Estimat Average Glucose 94 Hemoglobin A1c % 4.9 Insulin Level Lactic Acid Lactic Acid F/U @ 2Hr Lactic Acid F/U @ 4Hr 2.7 H* Calcium 8.8 Total Bilirubin 3.5 H AST 738 H ALT 253 H Alkaline Phosphatase 58 D Total Protein 5.9 L Albumin 3.2 L Blood Type Antibody Screen Crossmatch 03/24/22 03/24/22 03/24/22 07:26 11:58 11:58 WBC 13.8 H RBC 2.54 L Hgb 8.9 L D 8.7 L Hct 25.3 L D 24.7 L MCV 99.6 H MCH 35.0 H MCHC 35.2 RDW 16.5 H Plt Count 62 L D MPV 11.4 Immature Gran % (Auto) 0.5 H Neut % (Auto) 85.3 H Lymph % (Auto) 5.4 L [place] % (Auto) 8.6 Eos % (Auto) 0.0 Baso % (Auto) 0.2 Lymph # (Auto) 0.8 L [place] # (Auto) 1.2 Eos # (Auto) 0.0 Baso # (Auto) 0.0 Abs Immat Gran (auto) 0.07 H Absolute Neuts (auto) 11.7 H Absolute Nucleated RBC 0.000 Nucleated RBC % (auto) 0.0 Smear Path Review PT 25.5 H INR 2.2 H Sodium Potassium Chloride Carbon Dioxide Anion Gap BUN Creatinine Estim Creat Clear Calc Estimated GFR Random Glucose Estimat Average Glucose Hemoglobin A1c % Insulin Level Lactic Acid Lactic Acid F/U @ 2Hr Lactic Acid F/U @ 4Hr Calcium Total Bilirubin AST ALT Alkaline Phosphatase Total Protein Albumin Blood Type Antibody Screen Crossmatch 03/24/22 03/24/22 11:58 11:58 WBC RBC Hgb Hct MCV MCH MCHC RDW Plt Count MPV Immature Gran % (Auto) Neut % (Auto) Lymph % (Auto) [place] % (Auto) Eos % (Auto) Baso % (Auto) Lymph # (Auto) [place] # (Auto) Eos # (Auto) Baso # (Auto) Abs Immat Gran (auto) Absolute Neuts (auto) Absolute Nucleated RBC Nucleated RBC % (auto) Smear Path Review PT INR Sodium 142 Potassium 4.1 Chloride 107 Carbon Dioxide 28 Anion Gap 11 L BUN 35 H Creatinine 0.77 Estim Creat Clear Calc 105.4 Estimated GFR > 60 Random Glucose 174 H Estimat Average Glucose Hemoglobin A1c % Insulin Level Lactic Acid 2.0 Lactic Acid F/U @ 2Hr Lactic Acid F/U @ 4Hr Calcium 8.7 Total Bilirubin AST ALT Alkaline Phosphatase Total Protein Albumin Blood Type Antibody Screen Crossmatch A/P hospital d#2 76yo M with decompensated EtOH cirrhosis, ongoing EtOH abuse [5 beers/d], HTN, CAD s/p CABG, fibromyalgia, chronic back pain Prior EGD 2017: nonbleeding esophageal varices. No hx banding. Presented with melena + abd pain, progressed to hematemesis and hypotension, acute blood loss anemia, Hb 9.9->6.5; coagulopathy, INR 2 Transfused 2u pRBCs + 2u FFP, started on vasopressin gtt, and admitted to ICU. EGD done yesterday showed 2 cords of grade 2 esophageal varices that were banded Transfused another 2u PRBCs + 2u FFP Stepped down to IMC today # hemorrhagic shock due to acute blood loss anemia due to bleeding esophageal varices - continue octreotide + PPI infusions, clear liquid diet - repeat EGD in 2-4 wk per GI - to consider B-chino +/- statin for prevention of rebleeding # suspicious R hepatic lobe lesions - CT A/P triple phase, AFP level # EtOH hepatitis - monitor LFTs # CAMI - resolved # thrombocytopenia - due to cirrhosis, monitor platelet count # coagulopathy - due to cirrhosis, uncorrectable despite vit K + FFP # HTN - restarted amlodipine, lisinopril on hold # AUD with high risk for withdrawal - phenobarbital taper, B vitamins - CARE Team + Addiction Medicine consults # VTE ppx: SCDs # dispo: PT consult
[2022-03-24] MEDS: Thiamine HCL 100 MG TABLET PO (18:01)
[2022-03-24] MEDS: Multivitamin TABLET 1 TAB PO (20:56)
--- NOTE | 2022-03-24 22:58 | CONS_ITS ---
DATE OF SERVICE: 03/23/2022 REASON FOR CONSULTATION: I was asked to see patient to assist in evaluation and management of patient's hyperkalemia as reflected by potassium of 7.2 yesterday at 11 a.m. I was contacted by Dr. Mayorga regarding the severe hyperkalemia and a repeat at 1:30 p.m. was again 7.2, and we implemented aggressive medical treatment at that time. Fortunately, his potassium responded and came down to 5.4 at 4 p.m. At the time, his potassium dropped to 7.2, his bicarb also dropped to 11, whereas earlier at 1 a.m., his bicarb was 20. HISTORY OF PRESENT ILLNESS: In summary, the patient is a 76-year-old gentleman with a history of alcohol abuse, liver cirrhosis, chronic back pain, hypertension, who was admitted to the hospital with bloody vomiting. He has a history of esophageal varices and as part of his workup, he was going to get an endoscopy by GI, but repeat labs showed the hyperkalemia and so the scoping could not be done. The patient is a poor historian, so a lot of information was obtained from electronic medical record. PAST MEDICAL HISTORY: Notable for again liver cirrhosis, fibromyalgia and history of alcohol abuse. MEDICATIONS: His medications on admission listed as including amlodipine and lisinopril. His current medications are noted in the MAR. SOCIAL HISTORY: He is a nonsmoker. He does drink alcohol. No illicit drug use. FAMILY HISTORY: Not obtainable. REVIEW OF SYSTEMS: Not obtainable. PHYSICAL EXAMINATION: VITAL SIGNS: Blood pressure of 90/50. HEAD: Atraumatic and normocephalic. NECK: Supple. MOUTH: Mucous membranes are moist. EYES: Conjunctivae pale. LUNGS: Decreased breath sounds at bases. CARDIAC: Regular rate. ABDOMEN: Soft. EXTREMITIES: Trace edema. LABORATORY DATA: Potassium of 7.2, bicarb of 11, sodium 139. Hemoglobin was 8.2 on admission, dropped to 6.7. IMPRESSION: 76-year-old cirrhotic, admitted with gastrointestinal bleed and developed severe hyperkalemia and anion gap metabolic acidosis along with hypotension. 1. Severe hyperkalemia. This is multifactorial including probably severe metabolic acidosis, which can be a cause of hyperkalemia along with his low blood pressure and poor perfusion. Fortunately, he has responded to aggressive medical therapy and most likely will not need emergent dialysis. 2. Acute kidney injury with creatinine up to 1.54. Hopefully, this is reflective of the hemodynamic for perfusion of the kidneys and should bounce back. SUGGESTIONS: At this time include discontinue of lisinopril. Continue to track the potassium as there could be rebound hyperkalemia. Optimize hemodynamics and renal perfusion. We will follow the patient closely with the team. MD TROY Meraz/VENITA / [phone]
[2022-03-25] VITALS (7 sets, daily range): BP systolic 110–139; BP diastolic 52–65; PULSE 57–72; RESP 17–18; TEMP 36.3–36.8; O2SAT 96–98; BMI 33.2
--- NOTE | 2022-03-25 | ECG_ITS ---
Test Reason : afib Blood Pressure : / mmHG Vent. Rate : 074 BPM Atrial Rate : 074 BPM P-R Int : 216 ms QRS Dur : 114 ms QT Int : 432 ms P-R-T Axes : 041 -14 077 degrees QTc Int : 479 ms Sinus rhythm with sinus arrhythmia with 1st degree A-V block Nonspecific T wave abnormality Abnormal ECG When compared with ECG of 23-MAR-2022 12:56, Incomplete left bundle branch block is no longer Present T wave inversion now evident in Lateral leads Referred By: Rayshawn Porras Electronically Signed By:HUYEN ALMONTE
[2022-03-25 07:07] LABS: Hematocrit 24.4 % (42.0-52.0); Hemoglobin 8.3 g/dl (14.0-18.0); Mean Corpuscular Hemoglobin 34.6 pg (27.0-33.0); Mean Corpuscular Volume 101.7 fL (80.0-98.0); Mean Platelet Volume 11.5 fL (9.4-12.4); Platelet Count 65 X10*3/uL (160-400); Red Cell Distribution Width 17.7 % (11.0-16.0); White Blood Count 10.9 X10*3/uL (4.8-10.8)
[2022-03-25 07:11] LABS: INTERNATIONAL NORM RATIO 1.9 (0.9-1.1); Prothrombin Time 22.2 SEC (10.0-13.1)
[2022-03-25 07:20] LABS: Lactic Acid 1.2 mmol/L (0.5-2.0)
[2022-03-25 07:48] LABS: Alanine Aminotransferase 235 U/L (0-40); Albumin Level 2.9 g/dL (3.5-5.0); Alkaline Phosphatase 58 U/L (39-117); Anion Gap 12 (12-20); Aspartate Amino Transferase 438 U/L (5-37); Blood Urea Nitrogen 31 mg/dL (9-16); Calcium 8.5 mg/dL (8.4-10.2); Carbon Dioxide 26 mmol/L (22-29); Chloride 108 mmol/L (96-108); Creatinine Clr Calc Pharmacy 106.1; Estimated Glomerular Filt Rate > 60; Glucose Random 126 mg/dL (60-115); Magnesium 1.8 mg/dL (1.6-2.6); Phosphorus 2.1 mg/dL (2.7-4.5); Potassium 4.1 mmol/L (3.3-5.1); Sodium 142 mmol/L (135-145); Total Protein 5.5 g/dL (6.5-8.0)
[2022-03-25] MEDS: PHENobarbitaL 30 MG TABLET 60 MG PO ×2 (09:07→21:38)
[2022-03-25] MEDS: Omeprazole 40 MG CAPSULE.DR PO ×2 (09:07→16:01)
[2022-03-25] MEDS: Thiamine HCL 100 MG TABLET PO (09:07)
[2022-03-25] MEDS: amLODIPine Besylate 5 MG TABLET PO (09:08)
[2022-03-25] MEDS: 0.9 % Sodium Chloride Flush 3 ML SYRINGE IVFLUSH ×3 (09:08→21:42)
[2022-03-25] MEDS: carvediloL 3.125 MG TABLET PO ×2 (09:08→21:38)
--- NOTE | 2022-03-25 12:04 | P.PNIM_ITS ---
Subjective Subjective Date of Service: 03/25/22 Interval History: weak, somewhat tremulous no hematemesis no hematochezia or melena no abd pain Review of Systems Review of Systems: Yes all other systems are reviewed and are negative Physical Exam Vital Signs: Vital Signs: Last Vital Signs Temp 97.3 F 03/25/22 10:48 Pulse 65 03/25/22 10:48 Resp 18 03/25/22 10:48 BP 110/61 03/25/22 10:48 Pulse Ox 97 03/25/22 10:48 O2 Del Method 03/25/22 10:48 O2 Flow Rate 3 03/25/22 10:48 BMI result Body Mass Index 33.2 Gen: in no acute distress, chronically ill-appearing HEENT: sclera icteric, moist mucus membranes Neck: supple, 3-lumen CVC to LIJ Lungs: clear to auscultation bilaterally Heart: regular rate and rhythm, no murmurs Abd: soft, non-tender, non-distended, obese Ext: no edema Skin: warm/well-perfused Neuro: alert and oriented x3, asterixis present Psych: appropriate affect Objective Data Active Medications Amlodipine Besylate (Amlodipine Besylate 5 Mg Tablet) 5 mg PO DAILY [facility]; Protocol Last Admin: 03/25/22 09:08 Dose: 5 mg Documented By: DENISSE Carvedilol (Carvedilol 3.125 Mg Tablet) 3.125 mg PO BID [facility]; Protocol Last Admin: 03/25/22 09:08 Dose: 3.125 mg Documented By: DENISSE Lactulose (Lactulose 20 Gm/30 Ml Solution) 30 gm PO TID [facility] Morphine Sulfate (Morphine Sulfate 2 Mg/Ml Cartridge) 2 mg IVPUSH Q4H PRN; Protocol PRN Reason: Pain, Severe (Pain Scale 7-10) Last Admin: 03/24/22 21:01 Dose: 2 mg Documented By: BC Multivitamins/Vitamin C (Multivitamin Tablet) 1 tab PO BEDTIME [facility] Last Admin: 03/24/22 20:56 Dose: 1 tab Documented By: BC Omeprazole (Omeprazole 40 Mg Capsule.) 40 mg PO BID@0630,1630 [facility] Last Admin: 03/25/22 09:07 Dose: 40 mg Documented By: DENISSE Ondansetron HCl (Ondansetron Hcl 4 Mg/2 Ml Vial) 4 mg IVPUSH Q6H PRN PRN Reason: Nausea and Vomiting Last Admin: 03/24/22 03:14 Dose: 4 mg Documented By: JORGE Pharmacy Consult (Consult Rx Perform Med Rec) 1 each MISCELLANE ONCE PRN PRN Reason: Consult order Pharmacy Consult (Consult Rx Etoh Phenob Im/Po) 1 each MISCELLANE ONCE PRN; Protocol PRN Reason: Consult order Phenobarbital (Phenobarbital 30 Mg Tablet) 60 mg PO BID [facility] Stop: 03/26/22 21:01 Last Admin: 03/25/22 09:07 Dose: 60 mg Documented By: DENISSE Phenobarbital (Phenobarbital 30 Mg Tablet) 30 mg PO BID [facility] Stop: 03/28/22 21:01 Phenobarbital (Phenobarbital 30 Mg Tablet) 30 mg PO DAILY [facility] Stop: 03/30/22 09:01 Sodium Chloride (0.9 % Sodium Chloride Flush 3 Ml Syringe) 3 ml IVFLUSH QSHIFT [facility] Last Admin: 03/25/22 09:08 Dose: 3 ml Documented By: DENISSE Thiamine HCl (Thiamine Hcl 100 Mg Tablet) 100 mg PO DAILY [facility] Last Admin: 03/25/22 09:07 Dose: 100 mg Documented By: DENISSE Labs CBC & Chem 7: 03/25/22 06:32 03/25/22 06:32 Labs: Laboratory Results - last 24 hr 03/24/22 03/24/22 03/24/22 11:58 11:58 11:58 MCV MCH MCHC RDW Plt Count MPV Absolute Nucleated RBC Nucleated RBC % (auto) PT 25.5 H INR 2.2 H Anion Gap 11 L Estim Creat Clear Calc 105.4 Estimated GFR > 60 Random Glucose 174 H Lactic Acid 2.0 Calcium 8.7 Phosphorus Magnesium Total Bilirubin AST ALT Alkaline Phosphatase Total Protein Albumin 03/25/22 03/25/22 03/25/22 06:32 06:32 06:32 MCV 101.7 H MCH 34.6 H MCHC 34.0 RDW 17.7 H Plt Count 65 L MPV 11.5 Absolute Nucleated RBC 0.000 Nucleated RBC % (auto) 0.0 PT INR Anion Gap 12 Estim Creat Clear Calc 106.1 Estimated GFR > 60 Random Glucose 126 H Lactic Acid 1.2 Calcium 8.5 Phosphorus 2.1 L Magnesium 1.8 Total Bilirubin 2.0 H AST 438 H ALT 235 H Alkaline Phosphatase 58 Total Protein 5.5 L Albumin 2.9 L 03/25/22 06:32 MCV MCH MCHC RDW Plt Count MPV Absolute Nucleated RBC Nucleated RBC % (auto) PT 22.2 H INR 1.9 H Anion Gap Estim Creat Clear Calc Estimated GFR Random Glucose Lactic Acid Calcium Phosphorus Magnesium Total Bilirubin AST ALT Alkaline Phosphatase Total Protein Albumin Assessment and Plan (1) Acute upper gastrointestinal bleeding: Status: Acute Plan hospital d#2 76yo M with decompensated EtOH cirrhosis, ongoing EtOH abuse [5 beers/d], HTN, CAD s/p CABG, fibromyalgia, chronic back pain Prior EGD 2017: nonbleeding esophageal varices.? No hx banding. Presented with melena + abd pain, progressed to hematemesis and hypotension, acute blood loss anemia, Hb 9.9->6.5; coagulopathy, INR 2, CAMI, severe hyperkalemia Transfused 2u pRBCs + 2u FFP, started on vasopressin gtt, and admitted to ICU.? EGD done yesterday showed 2 cords of grade 2 esophageal varices that were banded Transfused another 2u PRBCs + 2u FFP Stepped down to [facility] 03/24/22 # hemorrhagic shock due to acute blood loss anemia due to bleeding esophageal varices - d/c octreotide gtt, change PPI from IV to PO, advance diet - repeat EGD in 2-4 wk per GI - start carvedilol and consider statin for prevention of rebleeding # suspicious R hepatic lobe lesions - CT A/P triple phase, AFP level # hepatic encephalopathy - start lactulose # EtOH hepatitis - monitor LFTs; trending downwards # CAMI # hyperK - resolved, d/c'ed lisinopril # thrombocytopenia - due to cirrhosis, monitor platelet count # coagulopathy - due to cirrhosis, uncorrectable despite vit K + FFP # HTN - restarted amlodipine, lisinopril d/c'ed due to hyperK/CAMI, carvedilol started for prevention of variceal hemorrhage # AUD with high risk for withdrawal - phenobarbital taper, B vitamins - CARE Team + Addiction Medicine consults # VTE ppx: SCDs # dispo: will eventually need STR In my clinical judgment, the patient requires continued hospitalization for the following reasons: GI bleeding Quality Stroke Does the patient have a stroke diagnosis?: No VTE Prior VTE?: No VTE Risk Level:: Medical - moderate - high VTE Device Contraindication: N/A - Device Ordered VTE Drug Contraindication: Treatment Not Indicated
--- NOTE | 2022-03-25 12:27 | MHC.CM.PN ---
Addendum entered by Svetlana De La Rosa 03/26/22 07:26: Patient has Medicare part A, but no secondary payor. Original Note: [facility] patient does not have SN[facility] benefit and no secondary payor @ this time. Call out to Insurance Verification to verify no other payor source.
[2022-03-25] MEDS: iohexoL 350 MG/ML 100 ML INFUS..BTL IV (14:25)
[2022-03-25] MEDS: Lactulose 20 GM/30 ML SOLUTION 30 GM PO ×2 (16:01→21:39)
[2022-03-25] MEDS: Morphine Sulfate 2 MG/ML CARTRIDGE IVPUSH (16:04)
--- NOTE | 2022-03-25 17:50 | PC.NURSE ---
pt was displaying odd rhythm on tele monitor; possibly a fib. Notified MD. EKG performed and results relayed to MD: sinus arrythmia with 1st degree AV block.
--- NOTE | 2022-03-25 19:03 | PC.NURSE ---
LATE ENTRY Pts zuleta catheter removed per Dr. Cardona order at 1045. Pt has voided multiple times. 300mls and 450mls. Post void residual for 0mls.
[2022-03-25] MEDS: Multivitamin TABLET 1 TAB PO (21:38)
[2022-03-26] VITALS (8 sets, daily range): BP systolic 131–141; BP diastolic 62–65; PULSE 54–71; RESP 18–22; TEMP 36.5–37.1; O2SAT 93–97; BMI 33.8
[2022-03-26] MEDS: Morphine Sulfate 2 MG/ML CARTRIDGE IVPUSH ×4 (04:40→21:01)
[2022-03-26] MEDS: Omeprazole 40 MG CAPSULE.DR PO ×2 (04:44→16:20)
[2022-03-26 06:13] LABS: Ammonia 56 umol/L (13-55)
[2022-03-26 06:22] LABS: INTERNATIONAL NORM RATIO 1.7 (0.9-1.1); Prothrombin Time 19.6 SEC (10.0-13.1)
[2022-03-26 06:42] LABS: Alanine Aminotransferase 197 U/L (0-40); Albumin Level 2.9 g/dL (3.5-5.0); Alkaline Phosphatase 69 U/L (39-117); Anion Gap 12 (12-20); Aspartate Amino Transferase 261 U/L (5-37); Bilirubin Total 2.6 mg/dL (0.0-1.0); Blood Urea Nitrogen 24 mg/dL (9-16); Calcium 8.3 mg/dL (8.4-10.2); Carbon Dioxide 26 mmol/L (22-29); Chloride 108 mmol/L (96-108); Estimated Glomerular Filt Rate > 60; Glucose Random 135 mg/dL (60-115); Magnesium 1.8 mg/dL (1.6-2.6); Potassium 3.8 mmol/L (3.3-5.1); Sodium 142 mmol/L (135-145); Total Protein 5.8 g/dL (6.5-8.0)
[2022-03-26] MEDS: carvediloL 3.125 MG TABLET PO ×2 (08:14→20:51)
[2022-03-26] MEDS: Thiamine HCL 100 MG TABLET PO (08:14)
[2022-03-26] MEDS: PHENobarbitaL 30 MG TABLET 60 MG PO ×2 (08:15→20:51)
[2022-03-26] MEDS: Lactulose 20 GM/30 ML SOLUTION 30 GM PO ×3 (08:15→20:53)
[2022-03-26] MEDS: amLODIPine Besylate 5 MG TABLET PO (08:15)
[2022-03-26] MEDS: 0.9 % Sodium Chloride Flush 3 ML SYRINGE IVFLUSH ×3 (08:17→20:54)
[2022-03-26 09:14] LABS: Hematocrit 27.2 % (42.0-52.0); Hemoglobin 9.1 g/dl (14.0-18.0); Mean Corpuscular HGB Conc 33.5 g/dl (31.0-36.0); Mean Corpuscular Hemoglobin 34.9 pg (27.0-33.0); Mean Corpuscular Volume 104.2 fL (80.0-98.0); Mean Platelet Volume 11.3 fL (9.4-12.4); PLT CLUMP 1; Red Blood Count 2.61 X10*6/uL (4.60-5.80); Red Cell Distribution Width 17.5 % (11.0-16.0)
[2022-03-26 09:17] LABS: Platelet Count 81 X10*3/uL (160-400)
[2022-03-26 09:41] LABS: Procalcitonin 0.32 ng/mL
--- NOTE | 2022-03-26 09:56 | MHC.CM.PN ---
Addendum entered by Ana Tracy 03/26/22 16:11: Spoke with Gerardo Borjas, this afternoon. Her contact information was given to . She is on [address] in [place]. Acall is planned @ 4pm. Original Note: Male 43 S/P banding of esophageal varicosities. PT eval recommends STR. The patient does not have Medicare B or a secondary payer. A referral has been sent to [facility]. DP GERMAINE ANDERSON.
[2022-03-26] MEDS: cefTRIAXone sodium 1 GM in 0.9 % Sodium Chloride 50 ML IV (10:07)
--- NOTE | 2022-03-26 10:15 | PM.HEMONCCN ---
Subjective - Subjective Chief complaint: Abdominal pain Patient: new to practice Consult date: 03/26/22 Primary Care Provider: Shahriar Cárdenas HPI - Consult Narrative Reason for consult: Probable HCC Narrative: Sam Davis is a 76 year old male with history of liver cirrhosis secondary to alcohol abuse was admitted for GI bleeding on 03/23/2022. He had blood in his stool as well as hematemesis for 2 days prior to presentation. His hemoglobin was 6.5 gram/dL on presentation. He had EGD performed same day, he was noted to have variceal bleeding, he underwent variceal band ligation and hemo spray application. Patient states that he lives alone at home. He has been driving and independent of all ADLs up until now. He reports lower abdominal discomfort at this time. He is aware of liver mass found on imaging study. Review of Systems - Constitutional Reports fatigue, Reports malaise, Reports poor appetite, Reports weakness, Denies weight loss - Cardiovascular Denies chest pain at rest, Denies chest pain with activity - Respiratory Denies cough, Reports dyspnea - Gastrointestinal Reports abdominal pain, Reports black, tarry stools, Reports bloating, Reports change in bowel habits - Neurologic Reports no additional neurologic complaints, Denies dizziness, Denies sensory deficit Oncology Screenings - ECOG Performance Status ECOG Performance Status: 3 [facility] Medical History: Medical History (Last Reviewed 03/25/22 @ 08:51 by Yasmine Stock PT) Chronic back pain Chronic liver disease Cirrhosis Colon cancer screening Fibromyalgia History of alcohol abuse Social History: Social History (Last Reviewed 03/23/22 @ 08:10 by Riri Harvey MD) Living Situation History: Household Members: None Housing: Unknown / Unable to asses Do you presently have visiting nurse or other home services: No Tobacco History: Patient Tobacco Use Status: Current someday Tobacco Tobacco use type: Cigarette Advance Directives: Advance Directives Date on File: 03/23/22 Occupation Assessmet: service: Yes Current occupational status: retired Home Medications and Allergies Current Medications: Current Medications Amlodipine Besylate (Amlodipine Besylate 5 Mg Tablet) 5 mg PO DAILY [facility]; Protocol Last Admin: 03/26/22 08:15 Dose: 5 mg Carvedilol (Carvedilol 3.125 Mg Tablet) 3.125 mg PO BID [facility]; Protocol Last Admin: 03/26/22 08:14 Dose: 3.125 mg Ceftriaxone Sodium 1 gm/ (Sodium Chloride) 50 mls @ 100 mls/hr IV Q24H [facility] Doxycycline Hyclate 100 mg/ (Sodium Chloride) 250 mls @ 166.67 mls/hr IV Q12H [facility] Lactulose (Lactulose 20 Gm/30 Ml Solution) 30 gm PO TID [facility] Last Admin: 03/26/22 08:15 Dose: 30 gm Morphine Sulfate (Morphine Sulfate 2 Mg/Ml Cartridge) 2 mg IVPUSH Q4H PRN; Protocol PRN Reason: Pain, Severe (Pain Scale 7-10) Last Admin: 03/26/22 04:40 Dose: 2 mg Multivitamins/Vitamin C (Multivitamin Tablet) 1 tab PO BEDTIME [facility] Last Admin: 03/25/22 21:38 Dose: 1 tab Omeprazole (Omeprazole 40 Mg Capsule.Dr) 40 mg PO BID@0630,1630 [facility] Last Admin: 03/26/22 04:44 Dose: 40 mg Ondansetron HCl (Ondansetron Hcl 4 Mg/2 Ml Vial) 4 mg IVPUSH Q6H PRN PRN Reason: Nausea and Vomiting Last Admin: 03/24/22 03:14 Dose: 4 mg Pharmacy Consult (Consult Rx Perform Med Rec) 1 each MISCELLANE ONCE PRN PRN Reason: Consult order Pharmacy Consult (Consult Rx Etoh Phenob Im/Po) 1 each MISCELLANE ONCE PRN; Protocol PRN Reason: Consult order Phenobarbital (Phenobarbital 30 Mg Tablet) 60 mg PO BID [facility] Stop: 03/26/22 21:01 Last Admin: 03/26/22 08:15 Dose: 60 mg Phenobarbital (Phenobarbital 30 Mg Tablet) 30 mg PO BID [facility] Stop: 03/28/22 21:01 Phenobarbital (Phenobarbital 30 Mg Tablet) 30 mg PO DAILY [facility] Stop: 03/30/22 09:01 Rifaximin (Rifaximin 550 Mg Tablet) 550 mg PO BID [facility] Sodium Chloride (0.9 % Sodium Chloride Flush 3 Ml Syringe) 3 ml IVFLUSH QSHIFT [facility] Last Admin: 03/26/22 08:17 Dose: 3 ml Thiamine HCl (Thiamine Hcl 100 Mg Tablet) 100 mg PO DAILY [facility] Last Admin: 03/26/22 08:14 Dose: 100 mg Home Medications Medication Instructions Recorded Confirmed Type amlodipine 5 mg tablet 5 mg PO DAILY 06/10/21 03/23/22 History lisinopril 40 mg tablet 40 mg PO DAILY 06/10/21 03/23/22 History Allergies Allergy/AdvReac Type Severity Reaction Status Date / Time No Known Allergies Allergy Verified 03/23/22 00:51 [No Known Allergies*] Physical Exam Vital signs: Vital Signs Temp 98.3 F 03/26/22 07:21 Pulse 63 03/26/22 07:44 Resp 20 03/26/22 07:21 BP 139/63 03/26/22 07:44 Pulse Ox 95 03/26/22 07:44 O2 Del Method 03/26/22 07:21 O2 Flow Rate 3 03/26/22 07:21 Intake & Output 03/25/22 03/26/22 03/26/22 18:59 06:59 18:59 Intake Total 400 / 640 240 / 640 Output Total 750 / 750 Balance -350 / -110 240 / -110 Urine Output (Average ml/kg/hr) 0.56 0.55 Intake: Intake, Oral Amount 400 / 640 240 / 640 Output: Output, Urine Amount 750 / 750 Other: Breakfast % Eaten 25% Lunch % Eaten 0% Dinner % Eaten 100% Number of Incontinent Voids 1 Number of Unmeasured Voids 1 Number of Bowel Movements 1 Urine zuleta Urine Color Yellow Yellow Stool Bedside Commode Incontinent Stool Amount Scant Stool Color Brown Weight 113.2 kg Weight in Grams [id number] Weight 113.2 kg - Constitutional Present: no acute distress, obese - Routine HEENT Exam Head: Present: normal inspection Eye: Present: scleral icterus - Routine Neck Exam Present: supple. Absent: lymphadenopathy - Routine Respiratory Exam Present: CTAB. Absent: accessory muscle use - Routine Cardiovascular Exam Cardiovascular: Present: S1, S2 - Routine Abdominal Exam Present: distended - Routine Neurological Exam Present: oriented X3 Hem/Onc Consult Result - Labs CBC & Chem 7: 03/26/22 09:03 03/26/22 05:58 Labs: Short CBC 03/26/22 Range/Units 09:03 WBC 13.0 H (4.8-10.8) X10*3/uL Hgb 9.1 L (14.0-18.0) g/dl Hct 27.2 L (42.0-52.0) % Plt Count 81 L (160-400) X10*3/uL BMP 03/26/22 05:58 Sodium 142 Potassium 3.8 Chloride 108 Carbon Dioxide 26 BUN 24 H Creatinine 0.78 Calcium 8.3 L Liver Function 03/26/22 Range/Units 05:58 Total Bilirubin 2.6 H (0.0-1.0) mg/dL AST 261 H (5-37) U/L ALT 197 H (0-40) U/L Alkaline Phosphatase 69 (39-117) U/L Albumin 2.9 L (3.5-5.0) g/dL Assessment and Plan Patient Active problem list reviewed?: Yes (1) Liver mass Status: Acute Assessment and plan: 1. This is a 76-year-old male with liver cirrhosis, esophageal variceal bleeding was been diagnosed with liver mass concerning for hepatocellular carcinoma. CT of liver, three-phase, revealed a heterogenous 6.7 x 6.3 cm lesion in central liver involving anterior segment of right lobe and medial segment of left lobe of liver. Thrombus in the main and right portal veins, mesenteric varices, small left pleural effusion and masslike consolidation in adjacent left lower lobe. Pneumonia versus atelectasis versus neoplasm. He has coagulopathy of liver disease and elevated liver enzymes. He has ascites and mild encephalopathy. Patient has Child Mtz class C. His previous blood work was in 2017. I discussed above findings with the patient. He is not sure if he wants to proceed with further investigations such as liver biopsy. I discussed the case with intervention radiologist. He will need therapeutic paracentesis before proceeding with liver biopsy to reduce risk of bleeding. Serum alpha fetoprotein level is pending. He is being evaluated for placement as well. Thank you, will follow with you. - Time Spent With Patient Time Spent with Patient (in minutes): 20
[2022-03-26] MEDS: rifAXIMin 550 MG TABLET PO ×2 (10:51→20:51)
[2022-03-26] MEDS: Doxycycline Hyclate 100 MG in 0.9 % Sodium Chloride 250 ML 166.67 MG IV ×2 (10:51→20:52)
--- NOTE | 2022-03-26 12:26 | HO.PM.IMPN ---
Subjective Subjective Date of Service: 03/26/22 Interval History: coughing, small amount of sputum no GI bleeding very weak not tremulous Review of Systems Review of Systems: Yes all other systems are reviewed and are negative Physical Exam Vital Signs: Vital Signs: Last Vital Signs Temp 97.7 F 03/26/22 11:30 Pulse 69 03/26/22 11:30 Resp 22 H 03/26/22 11:30 BP 131/63 03/26/22 11:30 Pulse Ox 97 03/26/22 11:30 O2 Del Method 03/26/22 11:30 O2 Flow Rate 3 03/26/22 11:30 BMI result Body Mass Index 33.8 Gen: in no acute distress, chronically ill-appearing HEENT: sclera icteric, moist mucus membranes Neck: supple Lungs: clear to auscultation bilaterally Heart: regular rate and rhythm, no murmurs Abd: soft, non-tender, non-distended, obese Ext: no edema Skin: warm/well-perfused Neuro: alert and oriented x3, asterixis present Psych: appropriate affect Objective Data Active Medications Amlodipine Besylate (Amlodipine Besylate 5 Mg Tablet) 5 mg PO DAILY [facility]; Protocol Last Admin: 03/26/22 08:15 Dose: 5 mg Documented By: DENISSE Carvedilol (Carvedilol 3.125 Mg Tablet) 3.125 mg PO BID [facility]; Protocol Last Admin: 03/26/22 08:14 Dose: 3.125 mg Documented By: DENISSE Ceftriaxone Sodium 1 gm/ (Sodium Chloride) 50 mls @ 100 mls/hr IV Q24H [facility] Last Infusion: 03/26/22 10:56 Dose: 0 mls/hr Documented By: DENISSE Doxycycline Hyclate 100 mg/ (Sodium Chloride) 250 mls @ 166.67 mls/hr IV Q12H [facility] Last Admin: 03/26/22 10:51 Dose: 166.67 mls/hr Documented By: DENISSE Lactulose (Lactulose 20 Gm/30 Ml Solution) 30 gm PO TID [facility] Last Admin: 03/26/22 08:15 Dose: 30 gm Documented By: DENISSE Morphine Sulfate (Morphine Sulfate 2 Mg/Ml Cartridge) 2 mg IVPUSH Q4H PRN; Protocol PRN Reason: Pain, Severe (Pain Scale 7-10) Last Admin: 03/26/22 10:13 Dose: 2 mg Documented By: DENISSE Multivitamins/Vitamin C (Multivitamin Tablet) 1 tab PO BEDTIME [facility] Last Admin: 03/25/22 21:38 Dose: 1 tab Documented By: OZZIE Omeprazole (Omeprazole 40 Mg Capsule.Dr) 40 mg PO BID@0630,1630 [facility] Last Admin: 03/26/22 04:44 Dose: 40 mg Documented By: OZZIE Ondansetron HCl (Ondansetron Hcl 4 Mg/2 Ml Vial) 4 mg IVPUSH Q6H PRN PRN Reason: Nausea and Vomiting Last Admin: 03/24/22 03:14 Dose: 4 mg Documented By: JORGE Pharmacy Consult (Consult Rx Perform Med Rec) 1 each MISCELLANE ONCE PRN PRN Reason: Consult order Pharmacy Consult (Consult Rx Etoh Phenob Im/Po) 1 each MISCELLANE ONCE PRN; Protocol PRN Reason: Consult order Phenobarbital (Phenobarbital 30 Mg Tablet) 60 mg PO BID [facility] Stop: 03/26/22 21:01 Last Admin: 03/26/22 08:15 Dose: 60 mg Documented By: DENISSE Phenobarbital (Phenobarbital 30 Mg Tablet) 30 mg PO BID [facility] Stop: 03/28/22 21:01 Phenobarbital (Phenobarbital 30 Mg Tablet) 30 mg PO DAILY [facility] Stop: 03/30/22 09:01 Rifaximin (Rifaximin 550 Mg Tablet) 550 mg PO BID [facility] Last Admin: 03/26/22 10:51 Dose: 550 mg Documented By: DENISSE Sodium Chloride (0.9 % Sodium Chloride Flush 3 Ml Syringe) 3 ml IVFLUSH QSHIFT [facility] Last Admin: 03/26/22 08:17 Dose: 3 ml Documented By: DENISSE Thiamine HCl (Thiamine Hcl 100 Mg Tablet) 100 mg PO DAILY [facility] Last Admin: 03/26/22 08:14 Dose: 100 mg Documented By: DENISSE Labs CBC & Chem 7: 03/26/22 09:03 03/26/22 05:58 Labs: Laboratory Results - last 24 hr 03/23/22 03/26/22 03/26/22 08:40 05:58 05:58 MCV MCH MCHC RDW Plt Count MPV Absolute Nucleated RBC Nucleated RBC % (auto) PT 19.6 H INR 1.7 H Anion Gap 12 Estim Creat Clear Calc 103.0 Estimated GFR > 60 Random Glucose 135 H Calcium 8.3 L Magnesium 1.8 Total Bilirubin 2.6 H AST 261 H ALT 197 H Alkaline Phosphatase 69 Ammonia Total Protein 5.8 L Albumin 2.9 L Procalcitonin Crossmatch See Detail 03/26/22 03/26/22 03/26/22 05:58 05:58 09:03 MCV 104.2 H MCH 34.9 H MCHC 33.5 RDW 17.5 H Plt Count 81 L MPV 11.3 Absolute Nucleated RBC 0.000 Nucleated RBC % (auto) 0.0 PT INR Anion Gap Estim Creat Clear Calc Estimated GFR Random Glucose Calcium Magnesium Total Bilirubin AST ALT Alkaline Phosphatase Ammonia 56 H Total Protein Albumin Procalcitonin 0.[address] 03/25/22 14:24 IMPRESSION: Cirrhotic-appearing liver. 6.7 x 6.3 cm mass in the anterior segment of the right lobe of the liver and possibly involving some of the medial segment of the left lobe of the liver. Thrombus in the main and right portal veins. Small amount of ascites. Gallstones. Small renal cysts. Severe atherosclerotic disease. Bilateral pleural calcification probably representing changes from asbestos exposure. Focal right lower lobe bronchiectasis and adjacent pleural thickening stable from 2017 exam. New small left pleural effusion and peripheral masslike consolidation in the adjacent left lower lobe. Differential would include pneumonia, atelectasis related to effusion and neoplasm. Assessment and Plan (1) Acute upper gastrointestinal bleeding: Status: Acute Plan hospital d#4 76yo M with decompensated EtOH cirrhosis, ongoing EtOH abuse [5 beers/d], HTN, CAD s/p CABG, fibromyalgia, chronic back pain Prior EGD 2017: nonbleeding esophageal varices.? No hx banding. Presented with melena + abd pain, progressed to hematemesis and hypotension, acute blood loss anemia, Hb 9.9->6.5; coagulopathy, INR 2, CAMI, severe hyperkalemia Transfused 2u pRBCs + 2u FFP, started on vasopressin gtt, and admitted to ICU.? EGD done yesterday showed 2 cords of grade 2 esophageal varices that were banded Transfused another 2u PRBCs + 2u FFP Stepped down to [facility] 03/24/22 Found to have liver mass suspicious for HCC # hemorrhagic shock due to acute blood loss anemia due to bleeding esophageal varices - d/c'ed octreotide gtt, changed PPI from IV to PO, advanced diet - repeat EGD in 2-4 wk per GI - started carvedilol and statin for prevention of rebleeding # liver neoplasm - AFP pending, Heme/Onc consult # LLL consolidation, PNA vs. atelectasis vs. neoplasm - treating as PNA, check PCT + BCx and start ceftriaxone + doxycycline d#1, will need f/u CT chest # acute hypoxic resp failure - suppl O2, wean as machelle # hepatic encephalopathy - started lactulose yesterday, add rifaximin today # EtOH hepatitis - monitor LFTs; trending downwards # CAMI # hyperK - resolved, d/c'ed lisinopril # thrombocytopenia - due to cirrhosis, monitor platelet count # coagulopathy - due to cirrhosis, received vit K + FFP # HTN - restarted amlodipine, lisinopril d/c'ed due to hyperK/CAMI, carvedilol started for prevention of variceal hemorrhage # AUD with high risk for withdrawal - phenobarbital taper, B vitamins - CARE Team + Addiction Medicine consults # VTE ppx: SCDs # dispo: will eventually need STR In my clinical judgment, the patient requires continued hospitalization for the following reasons: IV ABX Quality Stroke Does the patient have a stroke diagnosis?: No VTE Prior VTE?: No VTE Risk Level:: Medical - moderate - high VTE Device Contraindication: N/A - Device Ordered VTE Drug Contraindication: Treatment Not Indicated
--- NOTE | 2022-03-26 14:49 | MHC.RECOVRN ---
Chart reviewed and discussion with RN prior to meeting with pt. Pt sitting in bed, drowsy but wakes to voice. Pt requesting t/w to retrieve phone from the table because it had been ringing--the phone is not plugged in. Pt looking for phone to call granddaughter, come to find out pt does not have granddaughter's phone number. Pt reports drinking 3-4 big beers daily for years and is aware of alcohol use relating to current health problems. Pt had been to [facility] years and years ago and has also attended AA. Pt can not identify a period of time in recovery. Pt not appropriate to engage in further conversation at this time. T/w available as needed. Discussed with Aileen Manley APRN.
[2022-03-26] MEDS: Multivitamin TABLET 1 TAB PO (20:50)
[2022-03-26] MEDS: Atorvastatin Calcium 20 MG TABLET PO (20:50)
[2022-03-27] VITALS (10 sets, daily range): BP systolic 106–138; BP diastolic 44–68; PULSE 59–67; RESP 16–22; TEMP 36.1–37.1; O2SAT 90–97; BMI 33.5
--- NOTE | 2022-03-27 02:05 | PM.EVENT ---
Event Note Date of Service: 03/27/22 Event Note: pt noted to be gurgling and having difficulty w swallowing when drinking water. will make npo and consult speech
[2022-03-27] MEDS: Albuterol/Iprat 2.5/0.5MG 3 ML AMPUL.NEB INHALE (06:07)
[2022-03-27 06:59] LABS: B Type Natriuretic Peptide 597 pg/mL (<100)
--- NOTE | 2022-03-27 07:00 | P.EN_ITS ---
Event Note Date of Service: 03/28/22 Event Note: patient Woke up at around 05:00 complaining of shortness of breath. satting 90% on 3 L. Obtain chest x-ray which showed worsening bilateral infiltrate concerning for edema, also has elevated BNP. Started patient on Lasix, low- sodium diet, and cardiology consulted
[2022-03-27] MEDS: Furosemide 40 MG/4 ML VIAL IVPUSH ×2 (07:18→17:28)
[2022-03-27] MEDS: 0.9 % Sodium Chloride Flush 3 ML SYRINGE IVFLUSH ×3 (08:13→23:53)
[2022-03-27] MEDS: Doxycycline Hyclate 100 MG in 0.9 % Sodium Chloride 250 ML 166.67 MG IV ×2 (08:13→21:23)
[2022-03-27] MEDS: cefTRIAXone sodium 1 GM in 0.9 % Sodium Chloride 50 ML IV (08:13)
[2022-03-27 08:25] LABS: INTERNATIONAL NORM RATIO 1.6 (0.9-1.1); Prothrombin Time 18.7 SEC (10.0-13.1)
[2022-03-27 08:27] LABS: Hematocrit 26.7 % (42.0-52.0); Mean Corpuscular HGB Conc 33.7 g/dl (31.0-36.0); Mean Corpuscular Hemoglobin 35.3 pg (27.0-33.0); Mean Corpuscular Volume 104.7 fL (80.0-98.0); Mean Platelet Volume 11.2 fL (9.4-12.4); Red Blood Count 2.55 X10*6/uL (4.60-5.80); Red Cell Distribution Width 17.3 % (11.0-16.0)
[2022-03-27 08:29] LABS: Platelet Count 85 X10*3/uL (160-400)
[2022-03-27 08:37] LABS: Alanine Aminotransferase 156 U/L (0-40); Alkaline Phosphatase 72 U/L (39-117); Anion Gap 12 (12-20); Aspartate Amino Transferase 144 U/L (5-37); Blood Urea Nitrogen 21 mg/dL (9-16); Calcium 8.5 mg/dL (8.4-10.2); Carbon Dioxide 27 mmol/L (22-29); Chloride 105 mmol/L (96-108); Creatinine Clr Calc Pharmacy 95.2; Estimated Glomerular Filt Rate > 60; Glucose Random 130 mg/dL (60-115); Magnesium 1.9 mg/dL (1.6-2.6); Sodium 140 mmol/L (135-145)
[2022-03-27] MEDS: PHENobarbitaL 30 MG TABLET PO ×2 (08:52→21:23)
[2022-03-27] MEDS: amLODIPine Besylate 5 MG TABLET PO (08:52)
[2022-03-27] MEDS: carvediloL 3.125 MG TABLET PO ×2 (08:53→21:23)
[2022-03-27] MEDS: Lactulose 20 GM/30 ML SOLUTION 30 GM PO ×4 (08:53→21:21)
[2022-03-27] MEDS: rifAXIMin 550 MG TABLET PO ×2 (08:53→21:23)
[2022-03-27] MEDS: Thiamine HCL 100 MG TABLET PO (09:01)
[2022-03-27] MEDS: Spironolactone 25 MG TABLET PO ×2 (09:12→17:28)
--- NOTE | 2022-03-27 11:50 | P.PNIM_ITS ---
Subjective Subjective Date of Service: 03/27/22 Interval History: very dyspneic this AM SaO2 90 on 3L CXR showed worsening bilateral infiltrate, likely edema given furosemide 40 mg IV feels better no further hematochezia or melena Review of Systems Review of Systems: Yes all other systems are reviewed and are negative Physical Exam Vital Signs: Vital Signs: Last Vital Signs Temp 97.9 F 03/27/22 07:04 Pulse 63 03/27/22 08:08 Resp 22 H 03/27/22 08:08 BP 121/51 L 03/27/22 08:08 Pulse Ox 94 03/27/22 08:08 O2 Del Method 03/27/22 08:08 O2 Flow Rate 4 03/27/22 08:08 BMI result Body Mass Index 33.5 Gen: in no acute distress, chronically ill-appearing HEENT: sclera icteric, moist mucus membranes Neck: supple Lungs: diminished bilaterally Heart: regular rate and rhythm, no murmurs Abd: soft, non-tender, slightly distended, obese Ext: no edema Skin: warm/well-perfused Neuro: alert and oriented x3, asterixis present Psych: appropriate affect Objective Data Active Medications Albuterol/Ipratropium (Albuterol/Iprat 2.5/0.5mg 3 Ml Ampul.Neb) 3 ml INHALE RQ4H PRN PRN Reason: Shortness of Breath/Wheezing Last Admin: 03/27/22 06:07 Dose: 3 ml Documented By: MIHAELA Amlodipine Besylate (Amlodipine Besylate 5 Mg Tablet) 5 mg PO DAILY [facility]; Protocol Last Admin: 03/27/22 08:52 Dose: 5 mg Documented By: JEANINE Atorvastatin Calcium (Atorvastatin Calcium 20 Mg Tablet) 20 mg PO BEDTIME [facility] Last Admin: 03/26/22 20:50 Dose: 20 mg Documented By: ANA MARIA Carvedilol (Carvedilol 3.125 Mg Tablet) 3.125 mg PO BID [facility]; Protocol Last Admin: 03/27/22 08:53 Dose: 3.125 mg Documented By: JEANINE Furosemide (Furosemide 40 Mg/4 Ml Vial) 40 mg IVPUSH BID@0900,1800 [facility]; Protocol Last Admin: 03/27/22 09:07 Dose: Not Given Documented By: JEANINE Non-Admin Reason: Physician Held Med Ceftriaxone Sodium 1 gm/ (Sodium Chloride) 50 mls @ 100 mls/hr IV Q24H [facility] Last Infusion: 03/27/22 08:51 Dose: 0 mls/hr Documented By: JEANINE Doxycycline Hyclate 100 mg/ (Sodium Chloride) 250 mls @ 166.67 mls/hr IV Q12H [facility] Last Infusion: 03/27/22 10:37 Dose: 0 mls/hr Documented By: MELLO Lactulose (Lactulose 20 Gm/30 Ml Solution) 30 gm PO TID [facility] Last Admin: 03/27/22 08:53 Dose: 30 gm Documented By: JEANINE Morphine Sulfate (Morphine Sulfate 2 Mg/Ml Cartridge) 2 mg IVPUSH Q4H PRN; Protocol PRN Reason: Pain, Severe (Pain Scale 7-10) Last Admin: 03/26/22 21:01 Dose: 2 mg Documented By: ANA MARIA Multivitamins/Vitamin C (Multivitamin Tablet) 1 tab PO BEDTIME [facility] Last Admin: 03/26/22 20:50 Dose: 1 tab Documented By: ANA MARIA Omeprazole (Omeprazole 40 Mg Capsule.Dr) 40 mg PO BID@0630,1630 [facility] Last Admin: 03/27/22 05:32 Dose: Not Given Documented By: SHERYL Non-Admin Reason: NPO Ondansetron HCl (Ondansetron Hcl 4 Mg/2 Ml Vial) 4 mg IVPUSH Q6H PRN PRN Reason: Nausea and Vomiting Last Admin: 03/24/22 03:14 Dose: 4 mg Documented By: JROGE Pharmacy Consult (Consult Rx Perform Med Rec) 1 each MISCELLANE ONCE PRN PRN Reason: Consult order Pharmacy Consult (Consult Rx Etoh Phenob Im/Po) 1 each MISCELLANE ONCE PRN; Protocol PRN Reason: Consult order Phenobarbital (Phenobarbital 30 Mg Tablet) 30 mg PO BID [facility] Stop: 03/28/22 21:01 Last Admin: 03/27/22 08:52 Dose: 30 mg Documented By: JEANINE Phenobarbital (Phenobarbital 30 Mg Tablet) 30 mg PO DAILY [facility] Stop: 03/30/22 09:01 Rifaximin (Rifaximin 550 Mg Tablet) 550 mg PO BID [facility] Last Admin: 03/27/22 08:53 Dose: 550 mg Documented By: JEANINE Sodium Chloride (0.9 % Sodium Chloride Flush 3 Ml Syringe) 3 ml IVFLUSH QSHIFT [facility] Last Admin: 03/27/22 08:13 Dose: 3 ml Documented By: JEANINE Spironolactone (Spironolactone 25 Mg Tablet) 25 mg PO BID@0900,1800 [facility]; Protocol Last Admin: 03/27/22 09:12 Dose: 25 mg Documented By: JEANINE Thiamine HCl (Thiamine Hcl 100 Mg Tablet) 100 mg PO DAILY [facility] Last Admin: 03/27/22 09:01 Dose: 100 mg Documented By: JEANINE Labs CBC & Chem 7: 03/27/22 07:47 03/27/22 07:47 Labs: Laboratory Results - last 24 hr 03/27/22 03/27/22 03/27/22 06:20 07:47 07:47 MCV 104.7 H MCH 35.3 H MCHC 33.7 RDW 17.3 H Plt Count 85 L MPV 11.2 Absolute Nucleated RBC 0.000 Nucleated RBC % (auto) 0.0 PT 18.7 H INR 1.6 H Anion Gap Estim Creat Clear Calc Estimated GFR Random Glucose Calcium Magnesium Total Bilirubin AST ALT Alkaline Phosphatase B-Natriuretic Peptide 597 H Total Protein Albumin 03/27/22 07:47 MCV MCH MCHC RDW Plt Count MPV Absolute Nucleated RBC Nucleated RBC % (auto) PT INR Anion Gap 12 Estim Creat Clear Calc 95.2 Estimated GFR > 60 Random Glucose 130 H Calcium 8.5 Magnesium 1.9 Total Bilirubin 4.0 H AST 144 H ALT 156 H Alkaline Phosphatase 72 B-Natriuretic Peptide Total Protein 6.0 L Albumin 3.0 L Microbiology Microbiology Results: Microbiology 03/26/22 09:03 Blood Culture - Preliminary Blood - Venous No growth after 24 hours. 03/26/22 09:03 Blood Culture - Preliminary Blood - Venous No growth after 24 hours. Assessment and Plan (1) Acute upper gastrointestinal bleeding: Status: Acute [facility] hospital d#5 76yo M with decompensated EtOH cirrhosis, ongoing EtOH abuse [5 beers/d], HTN, CAD s/p CABG, fibromyalgia, chronic back pain Prior EGD 2017: nonbleeding esophageal varices.? No hx banding. Presented with melena + abd pain, progressed to hematemesis and hypotension, acute blood loss anemia, Hb 9.9->6.5; coagulopathy, INR 2, CAMI, severe hyperkalemia Transfused 2u pRBCs + 2u FFP, started on vasopressin gtt, and admitted to ICU.? EGD done yesterday showed 2 cords of grade 2 esophageal varices that were banded Transfused another 2u PRBCs + 2u FFP Stepped down to [facility] 03/24/22 Found to have liver mass suspicious for HCC Developed pulmonary edema # pulmonary edema # ascites - continue furosemide and add spironolactone - may require paracentesis on 03/29/22 # hemorrhagic shock due to acute blood loss anemia due to bleeding esophageal varices - d/c'ed octreotide gtt, changed PPI from IV to PO, advanced diet - repeat EGD in 2-4 wk per GI - started carvedilol and statin for prevention of rebleeding # liver neoplasm - AFP pending, Heme/Onc consulted. poor candidate for biopsy or chemotherapy. # LLL PNA - trend PCT, follow BCx, continue ceftriaxone + doxycycline d#2, will need f/u CT chest # acute hypoxic resp failure - suppl O2, wean as machelle # hepatic encephalopathy - increase lactulose, continue rifaximin # EtOH hepatitis - monitor LFTs; trending downwards # CAMI # hyperK - resolved, d/c'ed lisinopril # thrombocytopenia - due to cirrhosis, monitor platelet count # coagulopathy - due to cirrhosis, received vit K + FFP # HTN - restarted amlodipine, lisinopril d/c'ed due to hyperK/CAMI, carvedilol started for prevention of variceal hemorrhage # AUD with high risk for withdrawal - phenobarbital taper, B vitamins - CARE Team + Addiction Medicine consults # VTE ppx: SCDs # dispo: will eventually need STR In my clinical judgment, the patient requires continued hospitalization for the following reasons: IV ABX Quality Stroke Does the patient have a stroke diagnosis?: No VTE Prior VTE?: No VTE Risk Level:: Medical - moderate - high VTE Device Contraindication: N/A - Device Ordered VTE Drug Contraindication: Treatment Not Indicated
[2022-03-27] MEDS: Morphine Sulfate 2 MG/ML CARTRIDGE IVPUSH ×2 (14:35→21:24)
[2022-03-27] MEDS: Omeprazole 40 MG CAPSULE.DR PO (17:28)
[2022-03-27] MEDS: Multivitamin TABLET 1 TAB PO (21:22)
[2022-03-27] MEDS: Atorvastatin Calcium 20 MG TABLET PO (21:23)
[2022-03-28] VITALS (8 sets, daily range): BP systolic 112–154; BP diastolic 53–78; PULSE 60–65; RESP 18–22; TEMP 36–36.2; O2SAT 92–98
[2022-03-28] MEDS: Albuterol/Iprat 2.5/0.5MG 3 ML AMPUL.NEB INHALE (00:10)
[2022-03-28] MEDS: Omeprazole 40 MG CAPSULE.DR PO ×2 (05:56→16:14)
--- NOTE | 2022-03-28 06:20 | PM.EVENT ---
Event Note Date of Service: 03/28/22 Event Note: Patient was noted to have garbled speech by nursing staff as well as aid who knew him for few days, patient had no other neuro deficit, as he also has dysphagia will obtain CT head to rule out any acute intracranial abnormality
[2022-03-28 07:15] LABS: Hematocrit 29.8 % (42.0-52.0); Mean Corpuscular HGB Conc 33.6 g/dl (31.0-36.0); Mean Corpuscular Volume 104.2 fL (80.0-98.0); Mean Platelet Volume 11.3 fL (9.4-12.4); Platelet Count 117 X10*3/uL (160-400); Red Blood Count 2.86 X10*6/uL (4.60-5.80); Red Cell Distribution Width 17.2 % (11.0-16.0); White Blood Count 16.5 X10*3/uL (4.8-10.8)
[2022-03-28 07:37] LABS: INTERNATIONAL NORM RATIO 1.6 (0.9-1.1); Prothrombin Time 19.1 SEC (10.0-13.1)
[2022-03-28 07:40] LABS: Partial Thromboplastin Time 29.4 SEC (26.0-36.4)
[2022-03-28 07:45] LABS: Alanine Aminotransferase 134 U/L (0-40); Albumin Level 3.3 g/dL (3.5-5.0); Alkaline Phosphatase 86 U/L (39-117); Anion Gap 16 (12-20); Aspartate Amino Transferase 108 U/L (5-37); Bilirubin Total 5.1 mg/dL (0.0-1.0); Blood Urea Nitrogen 22 mg/dL (9-16); Calcium 8.8 mg/dL (8.4-10.2); Carbon Dioxide 25 mmol/L (22-29); Chloride 106 mmol/L (96-108); Creatinine Clr Calc Pharmacy 85.1; Estimated Glomerular Filt Rate > 60; Glucose Random 138 mg/dL (60-115); Potassium 3.6 mmol/L (3.3-5.1); Sodium 143 mmol/L (135-145); Total Protein 6.6 g/dL (6.5-8.0)
[2022-03-28 07:55] LABS: Procalcitonin 0.16 ng/mL
[2022-03-28 08:30] LABS: Ammonia 49 umol/L (13-55)
[2022-03-28] MEDS: cefTRIAXone sodium 1 GM in 0.9 % Sodium Chloride 50 ML IV (09:48)
[2022-03-28] MEDS: rifAXIMin 550 MG TABLET PO (09:49)
[2022-03-28] MEDS: Spironolactone 25 MG TABLET PO ×2 (09:49→17:15)
[2022-03-28] MEDS: carvediloL 3.125 MG TABLET PO (09:49)
[2022-03-28] MEDS: amLODIPine Besylate 5 MG TABLET PO (09:50)
[2022-03-28] MEDS: PHENobarbitaL 30 MG TABLET PO (09:50)
[2022-03-28] MEDS: Furosemide 40 MG/4 ML VIAL IVPUSH ×2 (09:50→17:15)
[2022-03-28] MEDS: Lactulose 20 GM/30 ML SOLUTION 30 GM PO ×2 (09:50→14:00)
[2022-03-28] MEDS: Thiamine HCL 100 MG TABLET PO (09:50)
[2022-03-28] MEDS: 0.9 % Sodium Chloride Flush 3 ML SYRINGE IVFLUSH ×3 (09:50→21:59)
[2022-03-28] MEDS: Doxycycline Hyclate 100 MG in 0.9 % Sodium Chloride 250 ML 166.7 MG IV (10:23)
--- NOTE | 2022-03-28 11:03 | P.PNIM_ITS ---
Subjective Subjective Date of Service: 03/28/22 Interval History: Difficulty swallowing Garbled speech this AM, CT negative. Currently speech is normal but still having difficulty swallowing C/o abd swelling Dyspnea improved Coughing No hematemesis or melena Review of Systems Review of Systems: Yes all other systems are reviewed and are negative Physical Exam Vital Signs: Vital Signs: Last Vital Signs Temp 97 F 03/28/22 10:59 Pulse 65 03/28/22 10:59 Resp 20 03/28/22 10:59 BP 122/55 L 03/28/22 10:59 Pulse Ox 96 03/28/22 10:59 O2 Del Method 03/28/22 10:59 O2 Flow Rate 4 03/28/22 10:59 BMI result Body Mass Index 33.5 Gen: in no acute distress, chronically ill-appearing HEENT: sclera icteric, moist mucus membranes Neck: supple Lungs: diminished bilaterally Heart: regular rate and rhythm, no murmurs Abd: soft, non-tender, distended, obese Ext: no edema Skin: warm/well-perfused Neuro: alert and oriented x3, asterixis absent Psych: appropriate affect ? Objective Data Active Medications Albuterol/Ipratropium (Albuterol/Iprat 2.5/0.5mg 3 Ml Ampul.Neb) 3 ml INHALE RQ4H PRN PRN Reason: Shortness of Breath/Wheezing Last Admin: 03/28/22 00:10 Dose: 3 ml Documented By: MIHAELA Amlodipine Besylate (Amlodipine Besylate 5 Mg Tablet) 5 mg PO DAILY [facility]; Protocol Last Admin: 03/28/22 09:50 Dose: 5 mg Documented By: KAYLA Atorvastatin Calcium (Atorvastatin Calcium 20 Mg Tablet) 20 mg PO BEDTIME [facility] Last Admin: 03/27/22 21:23 Dose: 20 mg Documented By: ANA MARIA Carvedilol (Carvedilol 3.125 Mg Tablet) 3.125 mg PO BID [facility]; Protocol Last Admin: 03/28/22 09:49 Dose: 3.125 mg Documented By: KAYLA Furosemide (Furosemide 40 Mg/4 Ml Vial) 40 mg IVPUSH BID@0900,1800 [facility]; Protocol Last Admin: 03/28/22 09:50 Dose: 40 mg Documented By: KAYLA Ceftriaxone Sodium 1 gm/ (Sodium Chloride) 50 mls @ 100 mls/hr IV Q24H [facility] Last Infusion: 03/28/22 10:27 Dose: 0 mls/hr Documented By: KAYLA Doxycycline Hyclate 100 mg/ (Sodium Chloride) 250 mls @ 166.67 mls/hr IV Q12H [facility] Last Admin: 03/28/22 10:23 Dose: 166.7 mls/hr Documented By: KAYLA Lactulose (Lactulose 20 Gm/30 Ml Solution) 30 gm PO QID [facility] Last Admin: 03/28/22 09:50 Dose: 30 gm Documented By: KAYLA Morphine Sulfate (Morphine Sulfate 2 Mg/Ml Cartridge) 2 mg IVPUSH Q4H PRN; Protocol PRN Reason: severe pain Multivitamins/Vitamin C (Multivitamin Tablet) 1 tab PO BEDTIME [facility] Last Admin: 03/27/22 21:22 Dose: 1 tab Documented By: ANA MARIA Omeprazole (Omeprazole 40 Mg Capsule.Dr) 40 mg PO BID@0630,1630 [facility] Last Admin: 03/28/22 05:56 Dose: 40 mg Documented By: ANA MARIA Ondansetron HCl (Ondansetron Hcl 4 Mg/2 Ml Vial) 4 mg IVPUSH Q6H PRN PRN Reason: Nausea and Vomiting Last Admin: 03/24/22 03:14 Dose: 4 mg Documented By: JORGE Pharmacy Consult (Consult Rx Perform Med Rec) 1 each MISCELLANE ONCE PRN PRN Reason: Consult order Pharmacy Consult (Consult Rx Etoh Phenob Im/Po) 1 each MISCELLANE ONCE PRN; Protocol PRN Reason: Consult order Phenobarbital (Phenobarbital 30 Mg Tablet) 30 mg PO BID [facility] Stop: 03/28/22 21:01 Last Admin: 03/28/22 09:50 Dose: 30 mg Documented By: KAYLA Phenobarbital (Phenobarbital 30 Mg Tablet) 30 mg PO DAILY [facility] Stop: 03/30/22 09:01 Rifaximin (Rifaximin 550 Mg Tablet) 550 mg PO BID [facility] Last Admin: 03/28/22 09:49 Dose: 550 mg Documented By: KAYLA Sodium Chloride (0.9 % Sodium Chloride Flush 3 Ml Syringe) 3 ml IVFLUSH QSHIFT [facility] Last Admin: 03/28/22 09:50 Dose: 3 ml Documented By: KAYLA Spironolactone (Spironolactone 25 Mg Tablet) 25 mg PO BID@0900,1800 [facility]; Protocol Last Admin: 03/28/22 09:49 Dose: 25 mg Documented By: KAYLA Thiamine HCl (Thiamine Hcl 100 Mg Tablet) 100 mg PO DAILY [facility] Last Admin: 03/28/22 09:50 Dose: 100 mg Documented By: KAYLA Labs CBC & Chem 7: 03/28/22 06:54 03/28/22 06:54 Labs: Laboratory Results - last 24 hr 03/28/22 03/28/22 03/28/22 06:54 06:54 06:54 MCV 104.2 H MCH 35.0 H MCHC 33.6 RDW 17.2 H Plt Count 117 L D MPV 11.3 Absolute Nucleated RBC 0.000 Nucleated RBC % (auto) 0.0 PT 19.1 H INR 1.6 H APTT 29.4 Anion Gap 16 Estim Creat Clear Calc 85.1 Estimated GFR > 60 Random Glucose 138 H Calcium 8.8 Total Bilirubin 5.1 H AST 108 H ALT 134 H Alkaline Phosphatase 86 Ammonia Total Protein 6.6 Albumin 3.3 L Procalcitonin 03/28/22 03/28/22 06:54 08:11 MCV MCH MCHC RDW Plt Count MPV Absolute Nucleated RBC Nucleated RBC % (auto) PT INR APTT Anion Gap Estim Creat Clear Calc Estimated GFR Random Glucose Calcium Total Bilirubin AST ALT Alkaline Phosphatase Ammonia 49 Total Protein Albumin Procalcitonin 0.16 Microbiology Microbiology Results: Microbiology 03/26/22 09:03 Blood Culture - Preliminary Blood - Venous No growth after 24 hours. 03/26/22 09:03 Blood Culture - Preliminary Blood - Venous No growth after 24 hours. Assessment and Plan (1) Acute upper gastrointestinal bleeding: Status: Acute Plan hospital d#6 76yo M with decompensated EtOH cirrhosis, ongoing EtOH abuse [5 beers/d], HTN, CAD s/p CABG, fibromyalgia, chronic back pain prior EGD in 2017 showed nonbleeding esophageal varices; no hx banding. presented with melena + abd pain, progressed to hematemesis and hypotension, acute blood loss anemia, Hb 9.9->6.5; coagulopathy, INR 2, CAMI, severe hyperkalemia transfused 2u pRBCs + 2u FFP, started on vasopressin gtt, and admitted to ICU; EGD showed 2 cords of grade 2 esophageal varices that were banded; transfused an other 2u PRBCs + 2u FFP stepped down to [facility] 03/24/22 found to have liver mass suspicious for HCC also developed pulmonary edema, hepatic encephalopathy, dysphagia # pulmonary edema # ascites - continue furosemide IV + spironolactone - US for ascites check; may require diagnostic + therapeutic paracentesis tomorrow # hemorrhagic shock due to acute blood loss anemia due to bleeding esophageal varices - d/c'ed octreotide gtt, changed PPI from IV to PO, advanced diet - repeat EGD in 2-4 wk per GI - started carvedilol and statin for prevention of rebleeding # liver neoplasm - AFP pending, Heme/Onc consulted. poor candidate for biopsy or chemotherapy. # LLL PNA vs. atelectasis vs. neoplasm - trend PCT, follow BCx, continue ceftriaxone + doxycycline d#3, will need f/u CT chest # acute hypoxic resp failure - suppl O2, wean as machelle # hepatic encephalopathy - continue lactulose, continue rifaximin # dysphagia - NPO except meds; WEIGHT CHECKER evaluation in AM # EtOH hepatitis - monitor LFTs; trending downwards # CAMI # hyperK - resolved, d/c'ed lisinopril # thrombocytopenia - due to cirrhosis, monitor platelet count # coagulopathy - due to cirrhosis, received vit K + FFP # HTN - restarted amlodipine, lisinopril d/c'ed due to hyperK/CAMI, carvedilol started for prevention of variceal hemorrhage # AUD with high risk for withdrawal - phenobarbital taper, B vitamins - CARE Team + Addiction Medicine consults # VTE ppx: SCDs # dispo: will eventually need STR In my clinical judgment, the patient requires continued hospitalization for the following reasons: IV ABX Quality Stroke Does the patient have a stroke diagnosis?: No VTE Prior VTE?: No VTE Risk Level:: Medical - moderate - high VTE Device Contraindication: N/A - Device Ordered VTE Drug Contraindication: Treatment Not Indicated
[2022-03-28] MEDS: Morphine Sulfate 2 MG/ML CARTRIDGE IVPUSH ×3 (11:34→22:06)
[2022-03-28] MEDS: Doxycycline Hyclate 100 MG in 0.9 % Sodium Chloride 250 ML 166.67 MG IV (22:00)
[2022-03-29] VITALS (10 sets, daily range): BP systolic 74–152; BP diastolic 50–64; PULSE 50–65; RESP 16–20; TEMP 30–36; O2SAT 92–98
[2022-03-29 05:59] LABS: Hematocrit 30.9 % (42.0-52.0); Hemoglobin 10.5 g/dl (14.0-18.0); PLT CLUMP 1
[2022-03-29 06:01] LABS: Mean Corpuscular Hemoglobin 35.5 pg (27.0-33.0); Mean Corpuscular Volume 104.4 fL (80.0-98.0); Mean Platelet Volume 11.7 fL (9.4-12.4); Red Blood Count 2.96 X10*6/uL (4.60-5.80); Red Cell Distribution Width 17.2 % (11.0-16.0)
[2022-03-29 06:18] LABS: Alanine Aminotransferase 103 U/L (0-40); Albumin Level 2.9 g/dL (3.5-5.0); Alkaline Phosphatase 82 U/L (39-117); Anion Gap 16 (12-20); Aspartate Amino Transferase 79 U/L (5-37); Bilirubin Total 4.9 mg/dL (0.0-1.0); Blood Urea Nitrogen 29 mg/dL (9-16); Calcium 8.6 mg/dL (8.4-10.2); Carbon Dioxide 23 mmol/L (22-29); Chloride 109 mmol/L (96-108); Creatinine Clr Calc Pharmacy 84.2; Estimated Glomerular Filt Rate > 60; Glucose Random 122 mg/dL (60-115); Magnesium 1.8 mg/dL (1.6-2.6); Potassium 3.1 mmol/L (3.3-5.1); Sodium 145 mmol/L (135-145)
[2022-03-29 06:19] LABS: Platelet Count 120 X10*3/uL (160-400); White Blood Count 13.3 X10*3/uL (4.8-10.8)
--- NOTE | 2022-03-29 07:00 | CA_ITS ---
Transthoracic Echocardiogram Patient (Last, First, Middle): Sam Davis L Gender: Male Date of : 1945 Age: 76 Procedure Date: 03/29/2022 Procedure Type: Transthoracic Echocardiogram Location: [facility] [place] Height: 182.88 cm Weight: 113.4 kg BSA: 2.34 m2 Heart Rate: bpm BP: 150 / 62 mmHg Training And Development Director: SB Referring MD: Riri Harvey MD Proposal Consultant: Oliver Munoz MD Symptoms: elevated bnp, r/o CHF Study Quality: Adequate w contrast ECG Rhythm: Sinus arrhythmia Conclusions: - 1. Hyperdynamic LV systolic function with LVEF of greater than 70% with moderate LVH and impaired relaxation filling pattern 2. Mildly dilated left atrium 3. Mild probably moderate aortic stenosis 4. No gross pericardial effusion 5. Mildly dilated ascending aorta Findings Procedure Information Contrast agent, definity, is being given per protocol without apparent complications. Left Ventricle Normal left ventricular cavity size. There is moderately increased left ventricular wall thickness. The left ventricular systolic function is hyperdynamic. The visually estimated ejection fraction is >70%. Spectral Doppler is indicative of an impaired relaxation filling pattern. Right Ventricle Normal right ventricular cavity size. There is normal right ventricular systolic function. Atria The left atrium is mildly dilated. Interatrial shunt cannot be excluded. The right atrium is likely dilated. Aortic Valve There is mild calcification of the aortic valve. There is moderate thickening of the aortic valve. There is mild aortic valve stenosis. The peak aortic gradient is 38 mmHg.The mean gradient is 18 mmHg. The aortic valve area is 1.55 cm2. There is no aortic valve regurgitation. Mitral Valve There is mild anterior and moderate posterior mitral leaflet thickening. There is moderate mitral annular calcification. There is trace mitral valve regurgitation. There is no mitral valve stenosis. Pulmonic Valve The pulmonic valve was not well visualized. Tricuspid Valve Likely normal tricuspid valve structure and function. Tricuspid regurgitation envelope is inadequate for calculation of right ventricular systolic pressure. Great Vessels The pulmonary artery was not well visualized. There is mild dilatation of the ascending aorta measuring 3.70 cm. Venous The inferior vena cava was not well visualized. Pericardium/Pleural There is no evidence of pericardial effusion. Prior Study Comparison No prior study available for comparison. Measurements 2D Linear Measurements IVSd: 1.43 0.6-0.9/0.6-1.0 cm LVIDd: 4.73 3.9-5.3/4.2-5.9 cm LVIDd Index: 2.02 2.4-3.2/2.2-3.1 cm/m2 LVIDs: 3.37 2.0-3.6 cm LVPWd: 1.62 0.7-1.1 cm LA Diam: 5.90 2.7-3.8/3.0-4.0 cm LAIDs Index: 2.52 1.5-2.3 cm/m2 LV Mass: 379.69 67-162/88-224 g LV Mass Index: 162.26 43-95/49-115 g/m2 LVOT Diam: 2.20 3.0+(-)1.3 cm 2D Systolic Function EF 4C: 72.10 >55% EF 2C: 76.30 >55% EF BiP: 73.70 >55% Mitral Valve MV VTI: 0.45 MV Pk Cory: 1.48 MV Mn Cory: 0.90 MV Pk Grad: 9.00 MV Mn Grad: 4.00 MV Pk E: 1.05 MV PK A: 1.38 MV Decel Time: 314.00 E/A: 0.80 E'Lateral: 4.57 E'Medial: 4.24 E/E' Med: 24.80 E/E' Lat: 23.00 PHT: 92.00 MVA PHT: 2.39 MVA Continuity: 2.23 Decel [place]: 3.34 Aortic Valve AoV Pk Cory: 3.10 AoV Mn Cory: 1.94 AoV VTI: 0.65 AoV Pk Grad: 38.00 Aov Mn Grad: 18.00 DAVID Cont.VTI: 1.55 LVOT LVOT Pk Cory: 1.29 LVOT Mn Cory: 0.82 LVOT VTI: 0.27 LVOT Pk Grad: 7.00 LVOT Mn Grad: 3.00 LVOT Diam: 2.20 LVOT Area: 3.80 Diastolic Function MV Pk E: 1.05 MV Pk A: 1.38 E/A: 0.80 E'Medial: 4.24 E/E' Med: 24.80 E' Laterial: 4.57 E/E' Lat: 23.00 Right Ventricle TAPSE (mm): 20.80 TVS' Cory: 10.80 Great Vessels Aorta Sinus of Valsalva: 3.60 2.0-3.5 cm Ao Asc: 3.70 2.1-3.4 cm Pulmonary Veins Pulm Vein S/D 1.40 Pulmonary Valve PV Pk Cory: 1.13 Peak PV Grad: 5.00 Updated in Other Vendor System with Status of Final Oliver Munoz MD electronically signed on 03/29/2022 11:19:36 AM with status of Final
[2022-03-29] MEDS: cefTRIAXone sodium 1 GM in 0.9 % Sodium Chloride 50 ML IV (09:51)
[2022-03-29] MEDS: 0.9 % Sodium Chloride Flush 3 ML SYRINGE IVFLUSH ×3 (09:56→19:57)
[2022-03-29] MEDS: Potassium Chloride/H20 10 MEQ/100 ML PIGGYBACK 100 MEQ IV ×2 (10:06→11:22)
--- NOTE | 2022-03-29 10:15 | MHC.CM.PN ---
Male 76 DX Hemoptysis ETOH W/D 03/28 episode of garbled speech. CT negative. Patient is NPO in need of BRAIDED RUG MAKER swallow eval. PT rec: STR. [facility]. Clinical updates sent. Care team has seen patient; however, He will need to be seen again to to mentation. CM will follow.
[2022-03-29] MEDS: Doxycycline Hyclate 100 MG in 0.9 % Sodium Chloride 250 ML 166.67 MG IV ×2 (10:49→20:38)
--- NOTE | 2022-03-29 11:48 | MHC.SL.SWA ---
Speech Pathologist Impression: Oropharyngeal dysphagia Dysphasia Diet Status: Upgrade Liquid Consistency and Strategies for Safe Swallow: Liquid Intake Recommendation: Honey Thick Liquid Intake Strategies: Small Sips No Straws Solid Food Consistency: Dietary Recommendations: Grnd/Mech Altered (NDD2) Additional Modifications to Solid Foods: Recommend UPGRADE from NPO to GROUND/MECH ALTERED (NDD2) diet with HONEY THICK liquids (NO STRAWS), pills CRUSHED in PUREE. Pt is able to feed himself. Recommend oral care throughout day, strict aspiration precautions with PO intake, total supervision during meals. Lalina message sent to MD, RN, RD w/ update. Oral Medication Intake: Crushed with Puree Please contact the pharmacy regarding appropriate crushable or liquid drug formulations that are available whenever modified delivery is recommended. Compensatory Strategies and Precautions to be Taken for Safe Swallow: Sitting Upright (90 deg) No Straw Liquids from Cup Liquids from Spoon Small Bites and Sips Alternate Liquids/Solids Rate of Ingestion Change Oral Check Avoid Specific Foods Supervision While Eating and Drinking for Safe Swallow: Total Supervision (1:1) Foods to Avoid: Difficult to chew solids, sticky consistencies Swallowing Recommended Treatments: Compens. Strategy Educat. Recommendation for Speech: Inpatient Speech Therapy Baggage Agent Clinican/Clinical Fellow: No Supervisory Statement: I have reviewed and agree with the student/clinical fellow's documentation: N/A Speech Language Pathologist: Kenzie Perry M.A., [facility]-[employer]
[2022-03-29] MEDS: Lactulose 20 GM/30 ML SOLUTION 30 GM PO ×3 (12:44→20:06)
[2022-03-29] MEDS: rifAXIMin 550 MG TABLET PO ×2 (12:44→20:06)
[2022-03-29] MEDS: Spironolactone 25 MG TABLET PO ×2 (12:44→18:13)
[2022-03-29] MEDS: Furosemide 40 MG/4 ML VIAL IVPUSH ×2 (12:45→18:13)
[2022-03-29] MEDS: PHENobarbitaL 30 MG TABLET PO (12:45)
[2022-03-29] MEDS: Thiamine HCL 100 MG TABLET PO (12:45)
[2022-03-29] MEDS: amLODIPine Besylate 5 MG TABLET PO (12:45)
[2022-03-29] MEDS: carvediloL 3.125 MG TABLET PO (12:48)
[2022-03-29 13:37] LABS: Alpha Fetoprotein 105.5 ng/mL (<6.1)
--- NOTE | 2022-03-29 14:00 | HO.PM.IMPN ---
Subjective Subjective Date of Service: 03/29/22 Physical Exam Vital Signs: Vital Signs: Last Vital Signs Temp 96.8 F 03/29/22 11:21 Pulse 58 03/29/22 11:21 Resp 18 03/29/22 11:21 BP 152/64 H 03/29/22 11:21 Pulse Ox 97 03/29/22 11:21 O2 Del Method 03/29/22 11:21 O2 Flow Rate 4 03/29/22 11:21 BMI result Body Mass Index 33.5 Objective Data Active Medications Albuterol/Ipratropium (Albuterol/Iprat 2.5/0.5mg 3 Ml Ampul.Neb) 3 ml INHALE RQ4H PRN PRN Reason: Shortness of Breath/Wheezing Last Admin: 03/28/22 00:10 Dose: 3 ml Documented By: MIHAELA Amlodipine Besylate (Amlodipine Besylate 5 Mg Tablet) 5 mg PO DAILY [facility]; Protocol Last Admin: 03/29/22 12:45 Dose: 5 mg Documented By: BOUBACAR Atorvastatin Calcium (Atorvastatin Calcium 20 Mg Tablet) 20 mg PO BEDTIME [facility] Last Admin: 03/28/22 21:40 Dose: Not Given Documented By: JANEEN Non-Admin Reason: NPO Carvedilol (Carvedilol 3.125 Mg Tablet) 3.125 mg PO BID [facility]; Protocol Last Admin: 03/29/22 12:48 Dose: 3.125 mg Documented By: BOUBACAR Furosemide (Furosemide 40 Mg/4 Ml Vial) 40 mg IVPUSH BID@0900,1800 [facility]; Protocol Last Admin: 03/29/22 12:45 Dose: 40 mg Documented By: BOUBACAR Ceftriaxone Sodium 1 gm/ (Sodium Chloride) 50 mls @ 100 mls/hr IV Q24H [facility] Last Infusion: 03/29/22 12:54 Dose: 0 mls/hr Documented By: BOUBACAR Doxycycline Hyclate 100 mg/ (Sodium Chloride) 250 mls @ 166.67 mls/hr IV Q12H [facility] Last Infusion: 03/29/22 12:54 Dose: 0 mls/hr Documented By: BOUBACAR Lactulose (Lactulose 20 Gm/30 Ml Solution) 30 gm PO QID [facility] Last Admin: 03/29/22 12:44 Dose: 30 gm Documented By: BOUBACAR Morphine Sulfate (Morphine Sulfate 2 Mg/Ml Cartridge) 2 mg IVPUSH Q4H PRN; Protocol PRN Reason: severe pain Last Admin: 03/28/22 22:06 Dose: 2 mg Documented By: JANEEN Multivitamins/Vitamin C (Multivitamin Tablet) 1 tab PO BEDTIME [facility] Last Admin: 03/28/22 21:40 Dose: Not Given Documented By: JANEEN Non-Admin Reason: NPO Omeprazole (Omeprazole 40 Mg Capsule.Dr) 40 mg PO BID@0630,1630 [facility] Last Admin: 03/29/22 05:40 Dose: Not Given Documented By: ROBERTA Non-Admin Reason: NPO Ondansetron HCl (Ondansetron Hcl 4 Mg/2 Ml Vial) 4 mg IVPUSH Q6H PRN PRN Reason: Nausea and Vomiting Last Admin: 03/24/22 03:14 Dose: 4 mg Documented By: JORGE Pharmacy Consult (Consult Rx Perform Med Rec) 1 each MISCELLANE ONCE PRN PRN Reason: Consult order Pharmacy Consult (Consult Rx Etoh Phenob Im/Po) 1 each MISCELLANE ONCE PRN; Protocol PRN Reason: Consult order Phenobarbital (Phenobarbital 30 Mg Tablet) 30 mg PO DAILY [facility] Stop: 03/30/22 09:01 Last Admin: 03/29/22 12:45 Dose: 30 mg Documented By: BOUBACAR Rifaximin (Rifaximin 550 Mg Tablet) 550 mg PO BID [facility] Last Admin: 03/29/22 12:44 Dose: 550 mg Documented By: BOUBACAR Sodium Chloride (0.9 % Sodium Chloride Flush 3 Ml Syringe) 3 ml IVFLUSH QSHIFT [facility] Last Admin: 03/29/22 09:56 Dose: 3 ml Documented By: BOUBACAR Spironolactone (Spironolactone 25 Mg Tablet) 25 mg PO BID@0900,1800 [facility]; Protocol Last Admin: 03/29/22 12:44 Dose: 25 mg Documented By: BOUBACAR Thiamine HCl (Thiamine Hcl 100 Mg Tablet) 100 mg PO DAILY [facility] Last Admin: 03/29/22 12:45 Dose: 100 mg Documented By: BOUBACAR Labs CBC & Chem 7: 03/29/22 05:36 03/29/22 05:36 Labs: Laboratory Results - last 24 hr 03/25/22 03/29/22 03/29/22 06:41 05:36 05:36 MCV 104.4 H MCH 35.5 H MCHC 34.0 RDW 17.2 H Plt Count 120 L MPV 11.7 Absolute Nucleated RBC 0.000 Nucleated RBC % (auto) 0.0 Anion Gap 16 Estim Creat Clear Calc 84.2 Estimated GFR > 60 Random Glucose 122 H Calcium 8.6 Magnesium 1.8 Total Bilirubin 4.9 H AST 79 H ALT 103 H Alkaline Phosphatase 82 Total Protein 6.0 L Albumin 2.9 L Alpha Fetoprotein 105.5 H Microbiology Microbiology Results: Microbiology 03/26/22 09:03 Blood Culture - Preliminary Blood - Venous No growth after 48 hours. 03/26/22 09:03 Blood Culture - Preliminary Blood - Venous No growth after 48 hours. Assessment and Plan (1) Acute upper gastrointestinal bleeding: Status: Acute Plan hospital d#6 76yo M with decompensated EtOH cirrhosis, ongoing EtOH abuse [5 beers/d], HTN, CAD s/p CABG, fibromyalgia, chronic back pain prior EGD in 2017 showed nonbleeding esophageal varices; no hx banding. presented with melena + abd pain, progressed to hematemesis and hypotension, acute blood loss anemia, Hb 9.9->6.5; coagulopathy, INR 2, CAMI, severe hyperkalemia transfused 2u pRBCs + 2u FFP, started on vasopressin gtt, and admitted to ICU; EGD showed 2 cords of grade 2 esophageal varices that were banded; transfused another 2u PRBCs + 2u FFP [place] [facility] [place] found to have liver mass suspicious for HCC also developed pulmonary edema, hepatic encephalopathy, dysphagia # pulmonary edema appears euvolemic, continue iv Lasix and spironolactone, BNP 597 will repeat at a.m., renal function stable, positive fluid balance will transition to by mouth Lasix abdominal ultrasound reveal tiny ascites, echo showed EF greater than 70 impaired relaxation filling pattern and moderate aortic stenosis no pericardial effusion # hemorrhagic shock due to acute blood loss anemia due to bleeding esophageal varices - s/p octreotide gtt, and IV PPI now on oral PPI, GI recommend repeat EGD in 2-4 weeks, continue Coreg and statin to prevent rebleeding # liver neoplasm - AFP 105, case discussed with Dr. Rodriguez she feels AFP not significantly elevated to give treatment she recommend outpatient follow-up before the studies, paracentesis could be done due to tiny ascitic fluid. # LLL PNA vs. atelectasis vs. neoplasm - PCT trended down to 0.16, blood cultures negative times 48 hours, continue ceftriaxone + doxycycline d#4, will need f/u CT chest, follow CBC # acute hypoxic resp failure - suppl O2, currently on 4 L finger oximetry 97,wean as tolerated # mild hepatic encephalopathy improving - continue lactulose, continue rifaximin, ammonia normalized # dysphagia - seen by speech therapy they recommended NDD2 diet and honey thick liquids # EtOH hepatitis - monitor LFTs; trending downwards # CAMI # hyperK - resolved, d/c'ed lisinopril # thrombocytopenia - due to cirrhosis, platelet count 120,000 # coagulopathy - due to cirrhosis, received vit K + FFP # HTN - restarted amlodipine, lisinopril d/c'ed due to hyperK/CAMI, carvedilol started for prevention of variceal hemorrhage # AUD with high risk for withdrawal - continue phenobarbital taper, B vitamins - seen by addiction team patient was not ready to engage in conversation at the time of meeting # VTE ppx: SCDs # dispo: will eventually need STR In my clinical judgment, the patient requires continued hospitalization for the following reasons: IV ABX and follow-up labs Quality Stroke Does the patient have a stroke diagnosis?: No VTE Prior VTE?: No VTE Risk Level:: Medical - moderate - high VTE Device Contraindication: N/A - Device Ordered VTE Drug Contraindication: Treatment Not Indicated
[2022-03-29] MEDS: Omeprazole 40 MG CAPSULE.DR PO (16:09)
[2022-03-29] MEDS: Potassium Chloride Packet 20 MEQ PACKET 40 MEQ PO ×2 (16:09→22:55)
[2022-03-29 19:51] LABS: NRBC Pct Auto 0.1 /100WBC (0.0-0.2); PLT CLUMP 1
[2022-03-29 19:53] LABS: Hematocrit 33.6 % (42.0-52.0); Hemoglobin 11.3 g/dl (14.0-18.0); Mean Corpuscular HGB Conc 33.6 g/dl (31.0-36.0); Mean Corpuscular Hemoglobin 35.3 pg (27.0-33.0); Mean Platelet Volume 11.4 fL (9.4-12.4); Red Cell Distribution Width 17.7 % (11.0-16.0)
[2022-03-29] MEDS: 0.9 % Sodium Chloride 1,000 ML 250 ML IVCONT (19:54)
[2022-03-29 20:02] LABS: WBC ABN SCTR FOR CBC 1
[2022-03-29 20:03] LABS: Platelet Count 126 X10*3/uL (160-400); White Blood Count 15.4 X10*3/uL (4.8-10.8)
[2022-03-29 20:06] LABS: Anion Gap 20 (12-20); Blood Urea Nitrogen 37 mg/dL (9-16); Calcium 8.6 mg/dL (8.4-10.2); Carbon Dioxide 20 mmol/L (22-29); Chloride 110 mmol/L (96-108); Creatinine Clr Calc Pharmacy 48.4; Estimated Glomerular Filt Rate 41; Glucose Random 127 mg/dL (60-115); Potassium 3.2 mmol/L (3.3-5.1); Sodium 147 mmol/L (135-145)
[2022-03-29] MEDS: Multivitamin TABLET 1 TAB PO (20:06)
[2022-03-29] MEDS: Atorvastatin Calcium 20 MG TABLET PO (20:06)
[2022-03-29 20:13] LABS: Band Neutrophils Percent 6 % (3-5); Lymphocytes Absolute Manual 0.5 X10*3/uL (1.2-4.9); Lymphocytes Percent Manual 3 % (20-40); Macrocytosis 2+ (15-30) /OIF; Metamyelocytes Absolute 0.5 X10*3/uL; Metamyelocytes Percent 3 %; Monocytes Absolute Manual 1.4 X10*3/uL (0.1-1.2); Monocytes Percent Manual 9 % (2-11); Neutrophils Absolute Manual 13.1 X10*3/uL (2.0-8.3); Neutrophils Percent Manual 79 % (45-73); RBC Morphology NOTED
[2022-03-29 20:15] LABS: Lactic Acid 4.9 mmol/L (0.5-2.0); Polychromasia 2+ (3-5) /OIF
[2022-03-29 20:16] LABS: Rouleau PRESENT
[2022-03-29 20:17] LABS: Large Platelet PRESENT; Platelet Estimate SLIGHTLY DECREASED (NORMAL); Platelet Morphology Comment NOTED
--- NOTE | 2022-03-29 21:07 | PM.EVENT ---
Event Note Date of Service: 03/29/22 Event Note: Hypotension/hypothermia: Patient blood pressure noted to be on the soft side-86/58. Patient also had episode of hypothermia-placed on Angel Hugger. Stat lab showed stable hemoglobin. Patient given gentle IV fluids. Patient currently mentating well but reports shortness of breath Will obtain chest x-ray Patient already on IV antibiotics. Patient lactate elevated to 4.9-cannot do 30 cc/kg fluids due to fluid overload. Held carvedilol, amlodipine, Lasix, Aldactone After the fluid challenge with 500 cc-patient blood pressure did not improve much-74/50-discussed with Dr. Macias-patient accepted to the ICU for pressors Mild hypernatremia: Patient on half-normal saline total of 250 cc. Mild hypokalemia: Repleted
[2022-03-29 21:46] LABS: Reflex Lactate? Lactic Acid Added
--- NOTE | 2022-03-29 23:14 | P.CONCC_ITS ---
History of Present Illness Data of Consult Service Date: 03/29/22 Requesting physician: Rod Laguerre Primary Care Provider: Shahriar Cárdenas HPI Reason for consult: hypotension Pt is a 76yo male with a past med hx of decompensated ETOH cirhosis while continuing drinking 5 beers/day, HTN, CAD s/p CABG, fibromyalgia and chronic back pain who was admitted to [facility] 6 days ago after being found with melena and abdominal pain which progressed to hematemesis and hypotension as well as anemia 2/2 blood loss, coagulopathy with an INR of 2, CAMI and hyperkalemia. He was given 2U PRBC's and 2U FFP and transferred to [facility] ICU. He unerwent banding of 2 cords of grade 2 esophageal varices and was transfused another 2U PRBC's and 2U FFP. Once stable, he was [place] [facility] [place] showed a liver mass, ? HCC. He also developed pulmonary edema, is on oral lasix, he was also on spirinolactone but that was dc'd today, BNP this am 597 and provider notes say he appears euvolemic. Tonight, the pt became hypothermic and hypotensive and reported feeling short of breath; he was gently fluid resuscitated with no improvement in BP's. Stat labs showed stable hg, elevated lactate to 4.9. He was placed on a juancarlos hugger, CXR showed nothing acute, pt is already on doxy and ceftriaxone, and sepsis fluids were not given as MD noted pt was fluid overloaded. pt was also noted to be mildly hypernatremic and was given 250cc half normal saline as well as mild hypokalemia which was repleted. Pt to be transferred to the ICU for BP support, dobutamine as well as a septic workup. I will also check a TSH to be thorough. Review of Systems Review of Systems: Yes all other systems are reviewed and are negative [facility] Past Medical History Medical History Chronic back pain Chronic liver disease Cirrhosis Colon cancer screening Fibromyalgia History of alcohol abuse Social History Social History Household Members: None Housing: Unknown / Unable to assess Do you presently have visiting nurse or other home services: No Patient Tobacco Use Status: Current someday Tobacco user Tobacco use type: Cigarette Advance Directives Date on File: 03/23/22 service: Yes Current occupational status: retired Meds Allergies Allergy/AdvReac Type Severity Reaction Status Date / Time No Known Allergies Allergy Verified 03/23/22 00:51 [No Known Allergies*] Active Medications: Current Medications Albuterol/Ipratropium (Albuterol/Iprat 2.5/0.5mg 3 Ml Ampul.Neb) 3 ml INHALE RQ4H PRN PRN Reason: Shortness of Breath/Wheezing Last Admin: 03/28/22 00:10 Dose: 3 ml Amlodipine Besylate (Amlodipine Besylate 5 Mg Tablet) 5 mg PO DAILY [facility]; Protocol Last Admin: 03/29/22 12:45 Dose: 5 mg Atorvastatin Calcium (Atorvastatin Calcium 20 Mg Tablet) 20 mg PO BEDTIME [facility] Last Admin: 03/29/22 20:06 Dose: 20 mg Carvedilol (Carvedilol 3.125 Mg Tablet) 3.125 mg PO BID [facility]; Protocol Last Admin: 03/29/22 12:48 Dose: 3.125 mg Furosemide (Furosemide 40 Mg/4 Ml Vial) 40 mg IVPUSH BID@0900,1800 [facility]; Protocol Last Admin: 03/29/22 18:13 Dose: 40 mg Ceftriaxone Sodium 1 gm/ (Sodium Chloride) 50 mls @ 100 mls/hr IV Q24H [facility] Last Infusion: 03/29/22 12:54 Dose: Infused Doxycycline Hyclate 100 mg/ (Sodium Chloride) 250 mls @ 166.67 mls/hr IV Q12H [facility] Last Infusion: 03/29/22 22:08 Dose: Infused Sodium Chloride (Ns) 1,000 mls @ 250 mls/hr IVCONT .Q4H [facility] Stop: 03/29/22 23:29 Last Admin: 03/29/22 19:54 Dose: 250 mls/hr Sodium Chloride (Sodium Chloride 0.45 %) 1,000 mls @ 50 mls/hr IVCONT .Q20H [facility] Dobutamine HCl/Dextrose (Dobutrex) 500 mg in 250 mls @ 0 mls/hr IVCONT .Q0M [facility]; Protocol Lactulose (Lactulose 20 Gm/30 Ml Solution) 30 gm PO TID [facility] Last Admin: 03/29/22 20:06 Dose: 30 gm Morphine Sulfate (Morphine Sulfate 2 Mg/Ml Cartridge) 2 mg IVPUSH Q4H PRN; Protocol PRN Reason: severe pain Last Admin: 03/28/22 22:06 Dose: 2 mg Multivitamins/Vitamin C (Multivitamin Tablet) 1 tab PO BEDTIME [facility] Last Admin: 03/29/22 20:06 Dose: 1 tab Omeprazole (Omeprazole 40 Mg Capsule.Dr) 40 mg PO BID@0630,1630 [facility] Last Admin: 03/29/22 16:09 Dose: 40 mg Ondansetron HCl (Ondansetron Hcl 4 Mg/2 Ml Vial) 4 mg IVPUSH Q6H PRN PRN Reason: Nausea and Vomiting Last Admin: 03/24/22 03:14 Dose: 4 mg Pharmacy Consult (Consult Rx Perform Med Rec) 1 each MISCELLANE ONCE PRN PRN Reason: Consult order Pharmacy Consult (Consult Rx Etoh Phenob Im/Po) 1 each MISCELLANE ONCE PRN; Protocol PRN Reason: Consult order Phenobarbital (Phenobarbital 30 Mg Tablet) 30 mg PO DAILY [facility] Stop: 03/30/22 09:01 Last Admin: 03/29/22 12:45 Dose: 30 mg Rifaximin (Rifaximin 550 Mg Tablet) 550 mg PO BID [facility] Last Admin: 03/29/22 20:06 Dose: 550 mg Sodium Chloride (0.9 % Sodium Chloride Flush 3 Ml Syringe) 3 ml IVFLUSH QSHIFT [facility] Last Admin: 03/29/22 19:57 Dose: 3 ml Thiamine HCl (Thiamine Hcl 100 Mg Tablet) 100 mg PO DAILY [facility] Last Admin: 03/29/22 12:45 Dose: 100 mg Home Medications Medication Instructions Recorded Confirmed Last Taken Type amlodipine 5 mg tablet 5 mg PO DAILY 06/10/21 03/23/22 03/22/22 History lisinopril 40 mg tablet 40 mg PO DAILY 06/10/21 03/23/22 03/22/22 History Physical Exam Vital Signs: Vital Signs: Last Vital Signs Temp 93.7 F L 03/29/22 22:17 Pulse 53 03/29/22 19:07 Resp 20 03/29/22 19:07 BP 74/50 L 03/29/22 22:50 Pulse Ox 94 03/29/22 19:07 O2 Del Method 03/29/22 19:07 O2 Flow Rate 4 03/29/22 11:21 BMI result Body Mass Index 33.5 Const: General: acute distress ( guppy breathing states sob) mild and respiratory, ill appearing (skin is lewis) acutely and tired appearing Nutritional Appearance: obese centrally obese Orientation/consciousness: pat ient oriented x3 HEENT: Head: Yes normocephalic and Yes atraumatic Teeth and gingiva: edentulous Eyes: Conjunctivae: conjunctival abnormal bilateral conjunctival icterus Neck: Other: bandage on left side, CDI. Neck: Yes no JVD Resp: Effort & Inspection: labored and respiratory distress Auscultation: breath sounds absent (slight wheeze) on th left Cardio: Rate: regular rate Heart sounds: normal S1 and S2 GI: Inspection: Yes distended Palpation (GI): Firmness to palpation present (GI), Rigid due to palpation and Hepatomegaly present Percussion: No Fluid wave present Skin: General skin exam: jaundice Neuro: General: patient oriented x3 Results Labs CBC & Chem 7: 03/30/22 00:08 03/30/22 00:08 Labs: Short CBC 03/29/22 03/29/22 Range/Units 05:36 19:40 WBC 13.3 H 15.4 H (4.8-10.8) X10*3/uL Hgb 10.5 L 11.3 L (14.0-18.0) g/dl Hct 30.9 L 33.6 L (42.0-52.0) % Plt Count 120 L 126 L (160-400) X10*3/uL BMP 03/29/22 03/29/22 05:36 19:40 Sodium 145 147 H Potassium 3.1 L 3.2 L Chloride 109 H 110 H Carbon Dioxide 23 20 L BUN 29 H 37 H Creatinine 0.95 1.65 H Calcium 8.6 8.6 Liver Function 03/29/22 Range/Units 05:36 Total Bilirubin 4.9 H (0.0-1.0) mg/dL AST 79 H (5-37) U/L ALT 103 H (0-40) U/L Alkaline Phosphatase 82 (39-117) U/L Albumin 2.9 L (3.5-5.0) g/dL Microbiology Microbiology Results: Microbiology 03/26/22 09:03 Blood - Venous Blood Culture - Preliminary No growth after 48 hours. 03/26/22 09:03 Blood - Venous Blood Culture - Preliminary No growth after 48 hours. Assessment and Plan (1) Liver mass: Status: Acute (2) History of esophageal varices: Status: Acute (3) Acute upper gastrointestinal bleeding: Status: Acute (4) Cirrhosis: Qualifiers: Ascites presence: unspecified Hepatic cirrhosis type: alcoholic cirrhosis Qualified Code(s): K70.30 - Alcoholic cirrhosis of liver without ascites Status: Acute (5) Fibromyalgia: Status: Acute (6) History of alcohol abuse: Status: Acute (7) Cirrhosis: Status: Acute (8) Chronic back pain: Status: Acute (9) Hypokalemia: Status: Acute Plan Pt to be transferred to ICU for septic work up and dobutamine to support his low BP. Dr Macias aware, he agrees with assessment and plan. When pt arrived to the ICU, BP was measuring systolic 190's however I was unable to replicate this manually. It appeared it was very low with doppler on radial pulse and manual cuff inflation. Will start dobutamine. Pt also labored breathing with tight, almost absent lung sounds on the left. We are giving duoneb, 4L O2 (sat is 94%) and will get chest CT. Abdomen is also very tense, firm in places, will get abd CT. Pt is alert and oriented. Lab is trying to draw the labs I have ordered but they are having a difficult time and his TLC was removed. Pt lung sounds less tight and improved s/o Duoneb tx. Titrating dobutamine. Gave 0.1mg IV phenylephrine for BP. adding levophed as BP still soft. Intra-abdominal pressure is 23. Will get KUB. Placed TLC for pressors and for lab draws as pt is difficult stick. Spoke with Dr Macias as pt is very critically ill and as we are unable to stabilize his BP to bring him down to the CT scanner, we are getting a KUB to look for the etiology as that is all we can get right now. Once we stabilize his BP, we will bring him to the CT scanner for chest and abd ct scan. EKG showed nothing acute. Pt denies any pain in his abdomen at this time. KUB didn't show any obvious free air. Discussed this grave situation with the pt, he asked to be made a DNR/DNI, HAYDEN Mccloud and Nursing tubing supervisor Britta were in the room and are witness to this discussion. We also discussed possible etiologies and possible fasciotomy, the patient declined fasciotomy at this time and understands the high likelihood of by declining this surgical intervention. Patient insisting he is not in pain. I asked if there was any family members or friends he would like me to call and he said no. I asked if I could call his granddaughter Radha or his daughter Suad (both are listed on his HCP) and he said no, he had nothing to say to them . I told him if he changes his mind, I am happy to reach out to them but he asked me not to. BP still soft despite levophed gtt, phenyephrine IV pushes and dobutamine gtt's. WBC 18.3, hg stable at 11.2 PT 26.4, INR 2.2, vbg 7.25/46/38/20/58/-6.1,Na 148, Cl 110, bicarb 18, gap 24, BUN 38, Cr 1.95, lactic acid climbing, is now 8.1. T bili 4.7, AST 77, ALT 95, albumin 2.7, procalcitonin 0.87, TSH 2.69. Temp is rising nicely, now at 94.8F. UA showed trace leukocyte esterase, pt on ceftriaxone and doxy. Will give bicarb push. Diagnosis is likely portal venous thrombosis with secondary mesenteric ischemia with elevated abdominal pressures. Will order liver US for the AM to rule this out. Critical Care Time Critical Care Time (minutes): 150
[2022-03-29 23:19] LABS: ~Lactic Acid-LAB USE ONLY 5.9 mmol/L (0.5-2.0)
--- NOTE | 2022-03-29 23:30 | PC.NURSE ---
During shift report, NA reported patients Temp was 86.0 and BP 81/51. Rechecked temp rectally, 90.5. Pt dusky in appearance. Cold to all extremeties. Pedal pulses hard to find via doppler but there. Hugger blanket placed on patient. Temps checked with last at 3.7 rectal. notified. Stat labs ordered as well as blood cultures. IV fluids ordered. IV line leaking. Two new lines placed. Lactic's critical at 4.9 and 5.9. K+ 3.2-replaced PO. Pt remains sob. Last BP 74/50 (manual). notified as well as nursing incinerator plant general supervisor, Carola. Pt transferred to ICU after report given around 23:20.
[2022-03-29] MEDS: Albuterol/Iprat 2.5/0.5MG 3 ML AMPUL.NEB INHALE (23:59)
[2022-03-30] VITALS (23 sets, daily range): BP systolic 51–163; BP diastolic 23–127; PULSE 55–94; RESP 12–25; TEMP 33.7–34.9; O2SAT 86–91; BMI 36.9
--- NOTE | 2022-03-30 | ECG_ITS ---
Test Reason : RHYTHM CHECK SOB Blood Pressure : / mmHG Vent. Rate : 092 BPM Atrial Rate : 092 BPM P-R Int : 168 ms QRS Dur : 114 ms QT Int : 412 ms P-R-T Axes : 020 -18 007 degrees QTc Int : 509 ms Normal sinus rhythm Left ventricular hypertrophy with repolarization abnormality ( R in aVL , Dangelo product ) Possible Lateral infarct , age undetermined Nonspecific T wave abnormality Prolonged QT Abnormal ECG When compared with ECG of 25-MAR-2022 17:36, Nonspecific T wave abnormality is now Present CA interval has decreased QT has lengthened Referred By: Mary Guillen Electronically Signed By:HUYEN ALMONTE
[2022-03-30] MEDS: DOBUTamine HCL/D5W 500 MG/250 ML IV.SOLN 16.83 MG IVCONT ×2 (00:05→02:42)
[2022-03-30 00:11] LABS: VBG Base Excess -6.1 mmol/L; VBG HCO3 20 mmol/L (22-26); VBG pCO2 46 mmHg; VBG pH 7.25 (7.32-7.43); VBG pO2 38 mmHg
[2022-03-30 00:17] LABS: PLT CLUMP 1; Red Blood Count 3.16 X10*6/uL (4.60-5.80)
[2022-03-30 00:19] LABS: Hemoglobin 11.2 g/dl (14.0-18.0); Mean Corpuscular HGB Conc 32.9 g/dl (31.0-36.0); Mean Corpuscular Hemoglobin 35.4 pg (27.0-33.0); Mean Corpuscular Volume 107.6 fL (80.0-98.0); Mean Platelet Volume 11.8 fL (9.4-12.4); NRBC Pct Auto 0.2 /100WBC (0.0-0.2); Red Cell Distribution Width 18.1 % (11.0-16.0)
[2022-03-30 00:29] LABS: INTERNATIONAL NORM RATIO 2.2 (0.9-1.1); Prothrombin Time 26.4 SEC (10.0-13.1)
[2022-03-30 00:31] LABS: Partial Thromboplastin Time 31.6 SEC (26.0-36.4)
[2022-03-30 00:31] LABS: Venous Blood Gas Refer to POC result
[2022-03-30 00:32] LABS: Alanine Aminotransferase 95 U/L (0-40); Albumin Level 2.7 g/dL (3.5-5.0); Alkaline Phosphatase 79 U/L (39-117); Anion Gap 24 (12-20); Aspartate Amino Transferase 77 U/L (5-37); Bilirubin Total 4.7 mg/dL (0.0-1.0); Blood Urea Nitrogen 38 mg/dL (9-16); Calcium 8.8 mg/dL (8.4-10.2); Carbon Dioxide 18 mmol/L (22-29); Chloride 110 mmol/L (96-108); Estimated Glomerular Filt Rate 34; Glucose Random 87 mg/dL (60-115); Potassium 3.6 mmol/L (3.3-5.1); Sodium 148 mmol/L (135-145); Total Protein 5.8 g/dL (6.5-8.0)
[2022-03-30 00:34] LABS: Platelet Count 121 X10*3/uL (160-400); WBC ABN SCTR FOR CBC 1; White Blood Count 18.3 X10*3/uL (4.8-10.8)
[2022-03-30 00:39] LABS: Band Neutrophils Percent 26 % (3-5); Lymphocytes Absolute Manual 0.5 X10*3/uL (1.2-4.9); Lymphocytes Percent Manual 3 % (20-40); Metamyelocytes Absolute 0.5 X10*3/uL; Metamyelocytes Percent 3 %; Monocytes Absolute Manual 0.4 X10*3/uL (0.1-1.2); Monocytes Percent Manual 2 % (2-11); Neutrophils Absolute Manual 16.8 X10*3/uL (2.0-8.3); Neutrophils Percent Manual 66 % (45-73)
[2022-03-30 00:40] LABS: RBC Morphology NOTED
[2022-03-30 00:41] LABS: Burr Cells 2+ (3-5) /OIF; Macrocytosis 1+ (5-14) /OIF; Polychromasia 1+ (0-2) /OIF
[2022-03-30 00:43] LABS: Large Platelet PRESENT; Platelet Estimate SLIGHTLY DECREASED (NORMAL); Platelet Morphology Comment NOTED; Toxic Vacuolation PRESENT
[2022-03-30] MEDS: Phenylephrine HCL 10 MG/ML VIAL IVPUSH ×2 (00:48→02:22)
[2022-03-30 00:50] LABS: Procalcitonin 0.87 ng/mL
[2022-03-30 00:52] LABS: TSH reflex Free T4 2.69 uIU/mL (0.32-4.0)
[2022-03-30 00:55] LABS: Reflex Lactate? 2 Y
[2022-03-30 00:59] LABS: Appearance Urine Clear; Color Urine Dark Yellow; Glucose Urine UA Negative (Negative); Leukocyte Esterase Urine Trace (Negative); Nitrite Urine Negative (Negative); PH 5.5 (5.0-8.0); Urine Blood Negative (Negative); Urine Ketones Trace mg/dL (Negative); Urine Protein Trace mg/dL (Neg-Trace)
[2022-03-30 01:12] LABS: Lipase 17 U/L (8-78)
[2022-03-30 01:14] LABS: Bacteria Urine None Seen (None Seen); RBC Urine 0-2 /HPF (0-2); Squamous Epithelial Cell Urine 0-2 /HPF (0-2); WBC Urine 0-5 /HPF (0-5)
[2022-03-30 02:02] LABS: ~Lactic Acid-LAB USE ONLY 8.1 mmol/L (0.5-2.0)
[2022-03-30] MEDS: Albumin Human 25 % 100 ML IV ×2 (02:06→02:24)
[2022-03-30] MEDS: Sodium Bicarbonate 8.4% 50 MEQ/50 ML SYRINGE IVPUSH (02:32)
[2022-03-30] MEDS: Midazolam HCl/PF 2 MG/2 ML VIAL 0.5 MG IVPUSH (03:12)
--- NOTE | 2022-03-30 03:12 | PC.NURSE ---
Patient arrived to unit at approximately 2325 after getting report from [facility] nurse. Patient hooked up to icu monitors and tele, reports feeling SOB sats 85% on 4L, visible difficulty. Unable to get BP at that time d/t monitor not reading. Attempt at manual bp with a Doppler, SBP 50's-60's and DBP 30-40's started on dobutamine gtt per JOEY Jensen at bedside. patient started on levophed gtt., see MAR titration, central line placed and xray to confirm and KUB results pending.Abdominal pressure test done at bedside -23. Patient given 2 doses IV phenylephrine by JOEY. Gannon placed,u/a sent as ordered. Albumin ordered and administered as well as bicarb. critical lactic 8.1 reported to JOEY Jensen. Case discussed with . JOEY Jensen and this nurse at the bedside as well as Nursing Head Piece Assembler Carola. Joey discussed options with patient. Patient reports he does not want to be intubated or resuscitated should it be needed. The option of a possible fasciotomy were explained to patient and was also declined at this time. Patient was asked if he understands what will happen without life saving measures if need and he stated yes, I will . Patient still declined. Joey asked if patient would like family/ healthcare proxy called to speak with them or if we could call and explain what is happening and patient declined and does not want to bother them at this time. stating I don't have much to say . Patient reporting feeling anxious;versed given as ordered, patient reporting 8/10 back pain; dilaudid given as ordered. A&OX4, lung sounds diminished, 87-92% on 6L face mask patient attempting to pull off mask frequent reminders needed, Abdomen very large, round distended and firm LUQ >RUQ report minimal discomfort upon touch. Generalized edema, Temp max 95.0 on bear hugger, HR SR 70-80's. RR:22-24. Giving report to next nurse.
[2022-03-30] MEDS: HYDROmorphone HCl 0.5 MG/0.5 ML SYRINGE IVPUSH (03:59)
[2022-03-30] MEDS: DOBUTamine HCL/D5W 500 MG/250 ML IV.SOLN 117.81 MG IVCONT ×2 (05:09→07:24)
[2022-03-30 05:56] LABS: VBG Base Excess -11.6 mmol/L; VBG HCO3 18 mmol/L (22-26); VBG pCO2 63 mmHg; VBG pH 7.06 (7.32-7.43); VBG pO2 68 mmHg
[2022-03-30 06:07] LABS: Venous Blood Gas Refer to POC result
[2022-03-30 06:10] LABS: Hematocrit 28.4 % (42.0-52.0); Mean Corpuscular HGB Conc 31.7 g/dl (31.0-36.0); Mean Corpuscular Hemoglobin 35.6 pg (27.0-33.0); Mean Platelet Volume 12.5 fL (9.4-12.4); NRBC Pct Auto 0.1 /100WBC (0.0-0.2); Platelet Count 107 X10*3/uL (160-400); Red Blood Count 2.53 X10*6/uL (4.60-5.80); Red Cell Distribution Width 18.3 % (11.0-16.0); White Blood Count 20.6 X10*3/uL (4.8-10.8)
[2022-03-30 06:15] LABS: Mean Corpuscular Volume 112.3 fL (80.0-98.0)
[2022-03-30 06:28] LABS: Alanine Aminotransferase 91 U/L (0-40); Albumin Level 3.1 g/dL (3.5-5.0); Alkaline Phosphatase 60 U/L (39-117); Anion Gap 26 (12-20); Aspartate Amino Transferase 131 U/L (5-37); Bilirubin Direct 2.7 mg/dL (0.0-0.5); Bilirubin Total 4.1 mg/dL (0.0-1.0); Blood Urea Nitrogen 41 mg/dL (9-16); Calcium 8.2 mg/dL (8.4-10.2); Carbon Dioxide 17 mmol/L (22-29); Chloride 109 mmol/L (96-108); Creatinine Clr Calc Pharmacy 34.7; Estimated Glomerular Filt Rate 28; Glucose Random 74 mg/dL (60-115); Magnesium 1.9 mg/dL (1.6-2.6); Phosphorus 9.3 mg/dL (2.7-4.5); Sodium 148 mmol/L (135-145); Total Protein 5.3 g/dL (6.5-8.0)
[2022-03-30 06:29] LABS: B Type Natriuretic Peptide 584 pg/mL (<100)
--- NOTE | 2022-03-30 06:48 | PC.NURSE ---
Assumed care at approx 0330 after report. Patient on high doses of pressors. Patient medicated w/ dilaudid w/ ok effect - patient moaning. BP still 70's to 80's systolic. HR 70's - Sinus. Camila ITA aware. blood cultures ordered and clarified that still needs to be drawn - drawn late r/t phlebotomy unable to draw. Patient needing to be redirected frequently from pulling at tubes - disoriented. Patient on oxymask, 7 liters. Bruising noted on arms, abd incredibly distended/large. Unable to reposition r/t BP unstable.
--- NOTE | 2022-03-30 07:31 | PC.NURSE ---
0730-spoke with dr. Moore and titrated dobutamine to 20mcg/kg/min per his verbal order.
[2022-03-30] MEDS: 0.9 % Sodium Chloride Flush 3 ML SYRINGE IVFLUSH (07:32)
--- NOTE | 2022-03-30 11:06 | P.DS_ITS ---
DS: Providers Provider Date of Service: 03/30/22 Date of admission: 03/23/22 05:30 Date of discharge: 03/30/22 Primary care physician: Shahriar Cárdenas Admitting clinician: Jean Hodge Attending physician on admission: Jean Hodge Consults: 03/23/22 05:29 Consult to Gastroenterology Routine Consulting Provider: Lincoln Sánchez Reason for consultation: Upper Gi bleed in cirrhotic 03/23/22 14:37 Consult to Nephrology Routine Consulting Provider: Tigre Momin Reason for consultation: hyperkalemia Has provider been notified: No 03/24/22 17:04 Addiction Medicine Routine Consulting Provider: Aileen Manley Reason for consultation: etoh Consult to Care Team Routine Comment: Reason for consultation: etoh 03/26/22 08:19 Consult to Hematology / Oncology Routine Consulting Provider: [facility] Oncology/Hematology Reason for consultation: liver mass suspect HCC; LLL mass; PV thrombosis Attending physician on discharge: Rosemary Macias Discharging clinician: Rosemary Macias DS: Diagnosis Discharge Diagnosis (1) Liver mass: Status: Acute (2) History of esophageal varices: Status: Acute (3) Acute upper gastrointestinal bleeding: Status: Acute (4) Cirrhosis: Status: Acute (5) Fibromyalgia: Status: Acute (6) History of alcohol abuse: Status: Acute (7) Cirrhosis: Status: Acute (8) Chronic back pain: Status: Acute (9) Hypokalemia: Status: Acute (10) Abdominal compartment syndrome: Status: Acute (11) Ischemic necrosis of small bowel: Status: Acute (12) Lactic acidosis: Status: Acute DS: Summary Hospital Course Hospital Course: 76-year-old male longstanding alcoholic with cirrhosis of the liver and hepatic failure as well as portal hypertension with longstanding history of esophageal varices presented with acute hemorrhagic shock from bleeding distal esophageal varices which were banded on March 23 and he was transfused red cells as well as fresh frozen plasma the bleeding abated and the patient did well and remained on octreotide for a day along with IV Protonix and then was transferred of stairs to the floor where he remained fairly stable and he remained on prophylactic ceftriaxone for a presumptive diagnosis of spontaneous bacterial peritonitis and last night we were called because the patient became hypotensive and hypothermic with a stable hemoglobin but an increasing level of lactic acidosis and abdominal distension and he did apparently have evidence of portal vein thrombosis that was that was noted a day or 2 earlier on ultrasound and a coming down is abdominal film showed with marked distention of multiple small bowel loops with very thick vaughn no free fluid and no free air no pneumatosis but strong likelihood of bowel ischemia 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 and patient had aggressive fluid replacement with central line insertion to be placed on dobutamine and Levophed but we found his hypotension to be intractable despite maximum doses of 2 inotropes and the patient remained lucid and oriented and actually conversational and we explained what was happening with the bowel and that the immediate amish of blood pressure in the face of elevated intra-abdominal pressure which was currently 23 cm was to do a fasciotomy and we described the procedure and that we are only going to resident rec blood pressure with this but still had to contend with the effects of the portal vein thrombosis and the patient expressed the desire to be changed to a DNR and DNI and said very specifically he did not want fasciotomy done that he realized that he was at a very advanced stage of cirrhosis in fact end-stage with very will high likelihood of hepatocellular carcinoma as well and wished not to be intervened on We maintained pressors we did not make him a comfort measure but the patient in a gradually lost responsiveness became progressively more hypotensive lactic acid of course was increasing pH dropped to 7.0 and then be low and then ultimately he became progressively more of bradycardic breathing became agonal and then apneic and then and asystolic documented at 10:41 and was pronounced at 10:41 Time Spent with Patient Time attestation: Total time spent providing and/or coordinating discharge services: Discharge coordination time: Greater than 30 minutes Quality: Safe Use of Opioids Does Pt have an Active Cancer Diagnosis on the Problem List?: Yes Opioid Measure Date for [facility] Report: 02/28/22 Opioid Measure Time for [facility] Report: 11:21 Quality: Stroke Does the patient have a stroke diagnosis?: No Physical Exam Vital Signs: Vital Signs: Last Vital Signs Temp 92.7 F L 03/30/22 10:00 Pulse 55 03/30/22 10:00 Resp 12 03/30/22 10:00 BP 51/23 L 03/30/22 10:00 Pulse Ox 86 L 03/30/22 10:00 O2 Del Method 03/30/22 11:00 O2 Flow Rate 7 03/30/22 10:00 BMI result Body Mass Index 36.9 Patient was asystolic and apneic documentation by echo as well as carotid Doppler DS: Data Data Completed and Pending Labs on day of discharge: Laboratory Results - last 24 hr 03/25/22 03/29/22 03/29/22 06:41 19:40 19:40 WBC 15.4 H RBC 3.20 L Hgb 11.3 L Hct 33.6 L MCV 105.0 H MCH 35.3 H MCHC 33.6 RDW 17.7 H Plt Count 126 L MPV 11.4 Immature Gran % (Auto) Cancelled Neut % (Auto) Cancelled Lymph % (Auto) Cancelled Baldwin % (Auto) Cancelled Eos % (Auto) Cancelled Baso % (Auto) Cancelled Lymph # (Auto) Cancelled Baldwin # (Auto) Cancelled Eos # (Auto) Cancelled Baso # (Auto) Cancelled Abs Immat Gran (auto) Cancelled Absolute Neuts (auto) Cancelled Absolute Nucleated RBC 0.020 H Nucleated RBC % (auto) 0.1 Neutrophils % (Manual) 79 H Band Neutrophils % 6 H Lymphocytes % (Manual) 3 L Monocytes % (Manual) 9 Metamyelocytes % 3 Abs Neuts (Manual) 13.1 H Lymphocytes # (Manual) 0.5 L Monocytes # (Manual) 1.4 H Metamyelocytes # 0.5 Toxic Vacuolation Platelet Estimate SLIGHTLY DECREASED Large Platelets PRESENT Plt Morphology Comment NOTED RBC Morphology NOTED Polychromasia 2+ (3-5) Macrocytosis 2+ (15-30) [place] Cells Rouleaux PRESENT PT INR APTT VBG pH VBG pCO2 VBG pO2 VBG HCO3 VBG O2 Saturation VBG Base Excess Sodium 147 H Potassium 3.2 L Chloride 110 H Carbon Dioxide 20 L Anion Gap 20 BUN 37 H Creatinine 1.65 H Estim Creat Clear Calc 48.4 Estimated GFR 41 Random Glucose 127 H Lactic Acid Lactic Acid F/U @ 2Hr Lactic Acid F/U @ 4Hr Calcium 8.6 Phosphorus Magnesium Total Bilirubin Direct Bilirubin AST ALT Alkaline Phosphatase B-Natriuretic Peptide Total Protein Albumin Lipase Alpha Fetoprotein 105.5 H Procalcitonin TSH Urine Color Urine Appearance Urine pH Ur Specific [place] Urine Protein Urine Glucose (UA) Urine Ketones Urine Blood Urine Nitrite Ur Leukocyte Esterase Urine RBC Urine WBC Ur Squamous Epith Cells Urine Bacteria Hyaline Casts 03/29/22 03/29/22 03/30/22 19:40 22:51 00:04 WBC RBC Hgb Hct MCV MCH MCHC RDW Plt Count MPV Immature Gran % (Auto) Neut % (Auto) Lymph % (Auto) Baldwin % (Auto) Eos % (Auto) Baso % (Auto) Lymph # (Auto) Baldwin # (Auto) Eos # (Auto) Baso # (Auto) Abs Immat Gran (auto) Absolute Neuts (auto) Absolute Nucleated RBC Nucleated RBC % (auto) Neutrophils % (Manual) Band Neutrophils % Lymphocytes % (Manual) Monocytes % (Manual) Metamyelocytes % Abs Neuts (Manual) Lymphocytes # (Manual) Monocytes # (Manual) Metamyelocytes # Toxic Vacuolation Platelet Estimate Large Platelets Plt Morphology Comment RBC Morphology Polychromasia Macrocytosis [place] Cells Rouleaux PT INR APTT VBG pH 7.25 L VBG pCO2 46 VBG pO2 38 VBG HCO3 20 L VBG O2 Saturation 58.0 VBG Base Excess -6.1 Sodium Potassium Chloride Carbon Dioxide Anion Gap BUN Creatinine Estim Creat Clear Calc Estimated GFR Random Glucose Lactic Acid 4.9 H* Lactic Acid F/U @ 2Hr 5.9 H* Lactic Acid F/U @ 4Hr Calcium Phosphorus Magnesium Total Bilirubin Direct Bilirubin AST ALT Alkaline Phosphatase B-Natriuretic Peptide Total Protein Albumin Lipase Alpha Fetoprotein Procalcitonin TSH Urine Color Urine Appearance Urine pH Ur Specific [place] Urine Protein Urine Glucose (UA) Urine Ketones Urine Blood Urine Nitrite Ur Leukocyte Esterase Urine RBC Urine WBC Ur Squamous Epith Cells Urine Bacteria Hyaline Casts 03/30/22 03/30/22 03/30/22 00:08 00:08 00:08 WBC 18.3 H RBC 3.16 L Hgb 11.2 L Hct 34.0 L MCV 107.6 H MCH 35.4 H MCHC 32.9 RDW 18.1 H Plt Count 121 L MPV 11.8 Immature Gran % (Auto) Cancelled Neut % (Auto) Cancelled Lymph % (Auto) Cancelled Baldwin % (Auto) Cancelled Eos % (Auto) Cancelled Baso % (Auto) Cancelled Lymph # (Auto) Cancelled Baldwin # (Auto) Cancelled Eos # (Auto) Cancelled Baso # (Auto) Cancelled Abs Immat Gran (auto) Cancelled Absolute Neuts (auto) Cancelled Absolute Nucleated RBC 0.030 H Nucleated RBC % (auto) 0.2 Neutrophils % (Manual) 66 Band Neutrophils % 26 H Lymphocytes % (Manual) 3 L Monocytes % (Manual) 2 Metamyelocytes % 3 Abs Neuts (Manual) 16.8 H Lymphocytes # (Manual) 0.5 L Monocytes # (Manual) 0.4 Metamyelocytes # 0.5 Toxic Vacuolation PRESENT Platelet Estimate SLIGHTLY DECREASED Large Platelets PRESENT Plt Morphology Comment NOTED RBC Morphology NOTED Polychromasia 1+ (0-2) Macrocytosis 1+ (5-14) Masha Cells 2+ (3-5) Rouleaux PT INR APTT VBG pH VBG pCO2 VBG pO2 VBG HCO3 VBG O2 Saturation VBG Base Excess Sodium 148 H Potassium 3.6 Chloride 110 H Carbon Dioxide 18 L Anion Gap 24 H BUN 38 H Creatinine 1.95 H Estim Creat Clear Calc 41.0 Estimated GFR 34 Random Glucose 87 Lactic Acid Lactic Acid F/U @ 2Hr Lactic Acid F/U @ 4Hr Calcium 8.8 Phosphorus Magnesium Total Bilirubin 4.7 H Direct Bilirubin AST 77 H ALT 95 H Alkaline Phosphatase 79 B-Natriuretic Peptide Total Protein 5.8 L Albumin 2.7 L Lipase 17 Alpha Fetoprotein Procalcitonin 0.87 TSH 2.69 Urine Color Urine Appearance Urine pH Ur Specific [place] Urine Protein Urine Glucose (UA) Urine Ketones Urine Blood Urine Nitrite Ur Leukocyte Esterase Urine RBC Urine WBC Ur Squamous Epith Cells Urine Bacteria Hyaline Casts 03/30/22 03/30/22 03/30/22 00:08 00:48 01:39 WBC RBC Hgb Hct MCV MCH MCHC RDW Plt Count MPV Immature Gran % (Auto) Neut % (Auto) Lymph % (Auto) Baldwin % (Auto) Eos % (Auto) Baso % (Auto) Lymph # (Auto) Baldwin # (Auto) Eos # (Auto) Baso # (Auto) Abs Immat Gran (auto) Absolute Neuts (auto) Absolute Nucleated RBC Nucleated RBC % (auto) Neutrophils % (Manual) Band Neutrophils % Lymphocytes % (Manual) Monocytes % (Manual) Metamyelocytes % Abs Neuts (Manual) Lymphocytes # (Manual) Monocytes # (Manual) Metamyelocytes # Toxic Vacuolation Platelet Estimate Large Platelets Plt Morphology Comment RBC Morphology Polychromasia Macrocytosis [place] Cells Rouleaux PT 26.4 H INR 2.2 H APTT 31.6 VBG pH VBG pCO2 VBG pO2 VBG HCO3 VBG O2 Saturation VBG Base Excess Sodium Potassium Chloride Carbon Dioxide Anion Gap BUN Creatinine Estim Creat Clear Calc Estimated GFR Random Glucose Lactic Acid Lactic Acid F/U @ 2Hr Lactic Acid F/U @ 4Hr 8.1 H* Calcium Phosphorus Magnesium Total Bilirubin Direct Bilirubin AST ALT Alkaline Phosphatase B-Natriuretic Peptide Total Protein Albumin Lipase Alpha Fetoprotein Procalcitonin TSH Urine Color Dark Yellow Urine Appearance Clear Urine pH 5.5 Ur Specific [place] 1.020 Urine Protein Trace Urine Glucose (UA) Negative Urine Ketones Trace Urine Blood Negative Urine Nitrite Negative Ur Leukocyte Esterase Trace H Urine RBC 0-2 Urine WBC 0-5 Ur Squamous Epith Cells 0-2 Urine Bacteria None Seen Hyaline Casts 11-03/30/22 03/30/22 03/30/22 05:50 05:50 05:50 WBC 20.6 H RBC 2.53 L Hgb 9.0 L Hct 28.4 L MCV 112.3 H MCH 35.6 H MCHC 31.7 RDW 18.3 H Plt Count 107 L MPV 12.5 H Immature Gran % (Auto) Neut % (Auto) Lymph % (Auto) Baldwin % (Auto) Eos % (Auto) Baso % (Auto) Lymph # (Auto) [place] # (Auto) Eos # (Auto) Baso # (Auto) Abs Immat Gran (auto) Absolute Neuts (auto) Absolute Nucleated RBC 0.030 H Nucleated RBC % (auto) 0.1 Neutrophils % (Manual) Band Neutrophils % Lymphocytes % (Manual) Monocytes % (Manual) Metamyelocytes % Abs Neuts (Manual) Lymphocytes # (Manual) Monocytes # (Manual) Metamyelocytes # Toxic Vacuolation Platelet Estimate Large Platelets Plt Morphology Comment RBC Morphology Polychromasia Macrocytosis Masha Cells Rouleaux PT INR APTT VBG pH VBG pCO2 VBG pO2 VBG HCO3 VBG O2 Saturation VBG Base Excess Sodium 148 H Potassium 4.0 Chloride 109 H Carbon Dioxide 17 L Anion Gap 26 H BUN 41 H Creatinine 2.30 H Estim Creat Clear Calc 34.7 Estimated GFR 28 Random Glucose 74 Lactic Acid Lactic Acid F/U @ 2Hr Lactic Acid F/U @ 4Hr Calcium 8.2 L D Phosphorus Magnesium Total Bilirubin 4.1 H Direct Bilirubin 2.7 H AST 131 H ALT 91 H Alkaline Phosphatase 60 D B-Natriuretic Peptide 584 H Total Protein 5.3 L Albumin 3.1 L Lipase Alpha Fetoprotein Procalcitonin TSH Urine Color Urine Appearance Urine pH Ur Specific [place] Urine Protein Urine Glucose (UA) Urine Ketones Urine Blood Urine Nitrite Ur Leukocyte Esterase Urine RBC Urine WBC Ur Squamous Epith Cells Urine Bacteria Hyaline Casts 03/30/22 03/30/22 05:50 05:50 WBC RBC Hgb Hct MCV MCH MCHC RDW Plt Count MPV Immature Gran % (Auto) Neut % (Auto) Lymph % (Auto) Baldwin % (Auto) Eos % (Auto) Baso % (Auto) Lymph # (Auto) Baldwin # (Auto) Eos # (Auto) Baso # (Auto) Abs Immat Gran (auto) Absolute Neuts (auto) Absolute Nucleated RBC Nucleated RBC % (auto) Neutrophils % (Manual) Band Neutrophils % Lymphocytes % (Manual) Monocytes % (Manual) Metamyelocytes % Abs Neuts (Manual) Lymphocytes # (Manual) Monocytes # (Manual) Metamyelocytes # Toxic Vacuolation Platelet Estimate Large Platelets Plt Morphology Comment RBC Morphology Polychromasia Macrocytosis [place] Cells Rouleaux PT INR APTT VBG pH 7.06 L* VBG pCO2 63 VBG pO2 68 VBG HCO3 18 L VBG O2 Saturation 85.0 VBG Base Excess -11.6 Sodium Potassium Chloride Carbon Dioxide Anion Gap BUN Creatinine Estim Creat Clear Calc Estimated GFR Random Glucose Lactic Acid Lactic Acid F/U @ 2Hr Lactic Acid F/U @ 4Hr Calcium Phosphorus 9.3 H Magnesium 1.9 Total Bilirubin Direct Bilirubin AST ALT Alkaline Phosphatase B-Natriuretic Peptide Total Protein Albumin Lipase Alpha Fetoprotein Procalcitonin TSH Urine Color Urine Appearance Urine pH Ur Specific [place] Urine Protein Urine Glucose (UA) Urine Ketones Urine Blood Urine Nitrite Ur Leukocyte Esterase Urine RBC Urine WBC Ur Squamous Epith Cells Urine Bacteria Hyaline Casts Preliminary micro results at discharge 03/26/22 09:03 Blood Culture - Preliminary Blood - Venous No growth after 48 hours. 03/26/22 09:03 Blood Culture - Preliminary Blood - Venous No growth after 48 hours. Discharge Plan Discharge Anticipated Discharge Date/Time: 03/30/22 11:17 Patient Disposition: Discharge Diagnosis: Abdominal compartment syndrome Sirs Ischemic bowel Lactic acidosis Referrals: Shahriar Cárdenas [Primary Care Provider] - 1 Week Discharge Medications: No Action lisinopril 40 mg tablet 40 mg PO DAILY amlodipine 5 mg tablet 5 mg PO DAILY
--- NOTE | 2022-03-30 11:14 | MHC.CM.PN ---
Male 76 DX Hemoptysis was transferred to ICU overnight. T/W spoke with the Assembly Lead Person this morning. Patient was able to make his own decisions when he arrived in the ICU. He declined to be placed on a vent. He declined a facia-otomy of distended AB. He declined to have Family called re his medical status. He made himself a DNR/DNI. T/W called HCP and Stepdtr Suad. A VM was left for HCP Marine Davis. Suad was reached by phone. She will be leaving [place] tomorrow (AVRIL). She was notified that the patient has declined overnight; which required transfer to ICU. Contact info was provided for the ICU. Suad was instructed to call ICU and request to speak with the Doctor. He is expecting a call from family.
--- NOTE | 2022-03-30 11:17 | PC.NURSE ---
1015-levophed and dobutamine stopped per dr. moore, as pts BP continues to drop regardless of pressor support. pt was agonally breathing at a rate of 7/min. Pt not responsive. SBP 52, shade in the 50's 1030-pt becoming more bradycardic in the 40's 1039-idioventricular rhythm noted. no response from pt. 1041-pt asystole, no pulse palpable, no respirations noted, no response from pt noted. Dr. Moore at bedside and pronounced pt's . 1055-[facility] called. patient was ruled out for organ or tissue donation after speaking with Colin from donor services. Referral # [id number] [phone]-Dr. Moore called and spoke with step-daughter, Kalani, to inform of pt's . Kalani stated, she was calling home . 1140-post mortem care completed. Gannon removed and Left peripheral IV removed. Rt IJ remains intact
--- NOTE | 2022-03-30 19:10 | W.PM.CCHP ---
Procedures Date of Service Date of Service: 03/29/22 Central Line Placement Right IJ: Central Line Comments: venous access and pressors Consent for Procedure: Emergent-no informed consent obtained Time out performed: Yes Sterile Technique Used: Yes Patient placed on monitor/pulse ox: Yes prep: mask, gown and gloves Central line prep: Chlorhexidine scrub Local anesthesia used: lidocaine 2% Amount of anesthesia used (ml): 3 Ultrasound used for placement: Yes Central line lumen inserted: triple Post procedure: sutured in place, good blood return, all ports aspirated, flushed, capped and sterile dressing applied Post procedure x-ray: tip of catheter in good position and no pneumothorax seen Patient tolerated procedure: well and no complications Complications: none
== END 2022-03-30 12:36 | disposition expired | DRG 432 ==
LOC: HO.ED 03:11 → HO.EDOVER 07:05 → HO.ICU 18:30 → HO.EDOVER 18:33 → HO.ICU 18:46 → HO.IMC 03-24 14:45 → HO.ICU 03-29 23:24
PROVIDERS: Anesthesiology; Family Medicine; Hospitalist; Internal Medicine Gastroenterology; Physician Assistant; Physician Assistant Medical; Admitting Provider Internal Medicine; Emergency Provider Emergency Medicine; PCP Internal Medicine; Visit Provider Hospitalist
PROC: 0DJ08ZZ Inspection of Upper Intestinal Tract, Via Natural or Artificial Opening Endoscopic (ICD-10-PCS; CPT 43235; principal; 2022-03-23 16:00)
DX: K70.30 Alcoholic cirrhosis of liver without ascites (principal); I81 Portal vein thrombosis; I85.11 Secondary esophageal varices with bleeding; J18.9 Pneumonia, unspecified organism; J81.0 Acute pulmonary edema; J96.01 Acute respiratory failure with hypoxia; D62 Acute posthemorrhagic anemia; N17.9 Acute kidney failure, unspecified; D68.4 Acquired coagulation factor deficiency; E87.0 Hyperosmolality and hypernatremia; K76.6 Portal hypertension; M79.A3 Nontraumatic compartment syndrome of abdomen; K55.9 Vascular disorder of intestine, unspecified; E87.2 Acidosis; Z66 Do not resuscitate; I95.9 Hypotension, unspecified; E87.5 Hyperkalemia; I25.10 Atherosclerotic heart disease of native coronary artery without angina pectoris; Z95.1 Presence of aortocoronary bypass graft; R57.8 Other shock; I10 Essential (primary) hypertension; K72.90 Hepatic failure, unspecified without coma; G89.29 Other chronic pain; R13.10 Dysphagia, unspecified; R68.0 Hypothermia, not associated with low environmental temperature; E87.6 Hypokalemia; K70.10 Alcoholic hepatitis without ascites; D69.59 Other secondary thrombocytopenia; F17.210 Nicotine dependence, cigarettes, uncomplicated; F10.10 Alcohol abuse, uncomplicated; Z71.6 Tobacco abuse counseling; Z20.822 Contact with and (suspected) exposure to COVID-19; Z79.899 Other long term (current) drug therapy
CPT/HCPCS: 36415; 70450; 71045; 74018; 74170; 76700; 76705; 80048; 80053; 80076; 81001; 82077; 82105; 82140; 82803; 82947; 83036; 83525; 83605; 83690; 83735; 83880; 84100; 84132; 84145; 84443; 84484; 85007; 85014; 85018; 85025; 85027; 85610; 85730; 86850; 86900; 86901; 86923; 87040; 87635; 92610; 93005; 93306; 93975; 94640; 97110; 97116; 97162; 99285; C1758; J0610; J0696; J1170; J1250; J1940; J2250; J2270; J2354; J2370; J2405; J3010; J3430; P9016; P9017; P9047; Q9957; Q9967